=== PATIENT | female | born 1945 | race Caucasian/White ===

== ENCOUNTER 2022-04-21 14:12 | Inpatient (IN) | payer MEDICARE, SELFPAY ==
--- NOTE | ~2022-04-21 | XR_ITS ---
EXAMINATION: XR CHEST CLINICAL INFORMATION: Shortness of breath COMPARISON: Chest radiograph 09/05/2018, CT abdomen 09/05/2018 TECHNIQUE: 2 views of the chest were obtained. FINDINGS: The lungs are clear and there is no airspace consolidation, vascular congestion, or effusion. The costophrenic sulci are well-defined. The heart is normal in size. There is tapering at the bilateral cardiophrenic angles consistent with areolar tissue on CT. The hilar and mediastinal contours are stable. There is tortuous descending thoracic aorta are again seen. Multilevel degenerative changes involve the thoracic spine. XR/XR chest 2V IMPRESSION: -No acute intrathoracic disease.
--- NOTE | ~2022-04-21 | CT_ITS ---
EXAMINATION: CT ABDOMEN AND PELVIS WITHOUT CONTRAST CLINICAL INFORMATION: Left lower quadrant pain. COMPARISON: None TECHNIQUE: Multidetector volumetric imaging was performed from the superior aspect of the liver through the pubic symphysis. Sagittal and coronal reformatted images were obtained on the technologist's workstation. This CT examination was performed using dose optimization techniques as appropriate, variously including the following: *Automated exposure control *Adjustment of mA and/or kV according to patient size (this includes techniques or standardized protocols for targeted exams where dose is matched to indication/reason for exam; i.e. extremities or head) *Use of iterative reconstruction technique DLP: 531 mGy-cm FINDINGS: LUNG BASES: The visualized lung bases are unremarkable. LIVER, GALLBLADDER, AND BILIARY TREE: The liver is normal in size, shape, and diffuse hypo-attenuation. No focal hepatic lesion or biliary ductal dilatation is present. The gallbladder has been surgically removed. There is a punctate gas seen in the left hepatic duct. PANCREAS: Unremarkable. SPLEEN: Unremarkable. ADRENAL GLANDS: Unremarkable. KIDNEYS AND URETERS: The kidneys are normal in size, shape, and attenuation. No hydronephrosis, hydroureter, or calculi seen. No perinephric stranding. BLADDER: Unremarkable. GASTROINTESTINAL TRACT: There is diffuse mural thickening involving the entire descending and left transverse colon with scattered sigmoid diverticulosis. There is no pericolic fat stranding. Moderate stool is seen in the ascending colon. The small bowel loops are normal caliber. The appendix is normal caliber. There is no free air or free fluid seen. ABDOMINAL WALL: No significant hernia is appreciated. LYMPH NODES: Normal. VASCULAR: Unremarkable. PELVIC VISCERA: There is mild mural thickening involving the rectum as well. Mild fat stranding seen in the perirectal fascia OSSEOUS STRUCTURES: Degenerative disc changes with loss of disc height L2-L3, L3-L4 and L4-L5 disc levels CT/CT abdomen pelvis wo con IMPRESSION: Diffuse mural thickening involving the descending, sigmoid and the rectum suggestive of colitis. There are only few scattered diverticuli in the sigmoid colon but no diverticulitis is suspected. Normal appendix. Moderate stool in the right colon. Fleischner guidelines were followed.
[2022-04-21 14:17] VITALS: BP 137/74; PULSE 113; RESP 18; TEMP 37.2; O2SAT 98; BMI 28.3
--- NOTE | 2022-04-21 14:23 | ECG_ITS ---
Test Reason : SOB Blood Pressure : / mmHG Vent. Rate : 113 BPM Atrial Rate : 113 BPM P-R Int : 132 ms QRS Dur : 084 ms QT Int : 322 ms P-R-T Axes : 045 -35 093 degrees QTc Int : 441 ms Sinus tachycardia Left axis deviation Septal infarct , age undetermined Possible Lateral infarct , age undetermined Abnormal ECG When compared with ECG of 05-SEP-2018 00:37, Septal infarct is now Present Borderline criteria for Lateral infarct are now Present Referred By: Generic ED Physician Electronically Signed By:Azam Cartagena
[2022-04-21 14:47] LABS: Hematocrit 30.7 % (37.0-47.0); Hemoglobin 9.5 g/dl (12.0-16.0); Mean Corpuscular HGB Conc 30.9 g/dl (31.0-35.0); Mean Corpuscular Hemoglobin 22.2 pg (27.0-33.0); Mean Corpuscular Volume 71.7 fL (80.0-98.0); Platelet Count 234 X10*3/uL (160-400); Red Blood Count 4.28 X10*6/uL (4.20-5.50); Red Cell Distribution Width 21.5 % (11.0-16.0); White Blood Count 17.5 X10*3/uL (4.8-10.8)
[2022-04-21 15:02] LABS: Lactic Acid 1.5 mmol/L (0.5-2.0)
[2022-04-21 15:03] LABS: COVID-19 Test Negative (Negative); IDNOW Serial# 9DD0AD1C
[2022-04-21 15:04] LABS: IDNOW Serial# 16C4AD1C; Influenza A Negative (Negative); Influenza B2 Negative (Negative)
[2022-04-21 15:08] LABS: Alanine Aminotransferase 17 U/L (0-31); Albumin Level 2.4 g/dL (3.5-5.0); Alkaline Phosphatase 91 U/L (39-117); Anion Gap 13 (12-20); Aspartate Amino Transferase 19 U/L (5-31); Bilirubin Total 0.9 mg/dL (0.0-1.0); Blood Urea Nitrogen 26 mg/dL (9-16); Calcium 7.8 mg/dL (8.4-10.2); Carbon Dioxide 23 mmol/L (22-29); Chloride 98 mmol/L (96-108); Creatinine Clr Calc Pharmacy 54.2; Estimated Glomerular Filt Rate > 60; Glucose Random 116 mg/dL (60-115); Lipase 9 U/L (8-78); Potassium 3.1 mmol/L (3.3-5.1); Sodium 131 mmol/L (135-145); Total Protein 5.9 g/dL (6.5-8.0)
[2022-04-21 15:15] LABS: Band Neutrophils Percent 38 % (3-5); Lymphocytes Absolute Manual 1.2 X10*3/uL (1.2-4.9); Lymphocytes Percent Manual 7 % (20-40); Monocytes Absolute Manual 1.4 X10*3/uL (0.1-1.2); Monocytes Percent Manual 8 % (2-11); Neutrophils Absolute Manual 14.9 X10*3/uL (2.0-8.3); Neutrophils Percent Manual 47 % (45-73)
[2022-04-21 15:17] LABS: Dohle Bodies PRESENT; Hypochromasia 1+ (5-14) /OIF; Polychromasia 1+ (0-2) /OIF; RBC Morphology NOTED; Toxic Vacuolation PRESENT
[2022-04-21 15:19] LABS: Platelet Estimate NORMAL (NORMAL); Platelet Morphology Comment NORMAL
--- NOTE | 2022-04-21 20:49 | ED.GENADULT ---
HPI - General Adult General Chief complaint: General Medical Stated complaint: Abnormal labs sent by PCP Time Seen by Provider: 04/21/22 20:49 Source: patient and family Mode of arrival: ambulatory Limitations: no limitations History of Present Illness HPI narrative: Patient is 76 years old with history of hypertension been having diffuse abdominal pain few weeks , got worse in last few days,pain started in the left lower abdomen and now is in diffuse abdomen very poor appetite had some loose stools mixed with blood blood pressure was low afew days ago so patient stop taking her blood pressure medication, seen the PCP today and blood pressure was 82/50 patient feel weak nauseated does not feel hungry pain gets worse on ambulation no fever no or shortness of breath patient does have history of constipation taking stool laxative followed by diarrhea mixed with blood denies any antibiotic use in last few months Related Data Home Medications Medication Instructions Recorded Confirmed amlodipine 5 mg tablet 1 tab PO DAILY 04/21/22 04/21/22 clindamycin phosphate 1 % topical 1 appl TOPICAL BID 04/21/22 04/21/22 solution dicyclomine 10 mg capsule 1 cap PO TID 04/21/22 04/21/22 lorazepam 1 mg tablet 1 tab PO BID PRN 04/21/22 04/21/22 losartan 50 mg tablet 1 tab PO DAILY 04/21/22 04/21/22 nystatin 100,000 unit/mL oral 5 ml PO 5XD 04/21/22 04/21/22 suspension ondansetron 4 mg disintegrating 1 tab PO BID PRN 04/21/22 04/21/22 tablet Allergies Allergy/AdvReac Type Severity Reaction Status Date / Time Fish Containing Products Allergy Unknown HIVES TO Verified 04/21/22 14:16 COD Penicillins [PENICILLINS] Allergy Unknown UNKNOWN Verified 04/21/22 14:16 Sulfa (Sulfonamide Allergy Unknown HIVES Verified 04/21/22 14:16 Antibiotics) [SULFA (SULFONAMIDE ANTIBIOTICS)] sulfamethoxazole Allergy Unknown HIVES Verified 04/21/22 14:16 [From BACTRIM] trimethoprim [From BACTRIM] Allergy Unknown HIVES Verified 04/21/22 14:16 Review of Systems Review of Systems: Yes all other systems are reviewed and are negative PMFSH Social History Social History Advance Directives: No Advance Directives Information Provided: No Physical Exam ED Vital Signs: Vital Signs - 24 hr 04/21/22 14:17 04/21/22 20:56 04/21/22 22:57 Temperature 99.0 F Pulse Rate 113 H 111 H 83 Respiratory Rate 18 20 22 H Blood Pressure 137/74 94/60 114/54 L Pulse Oximetry 98 99 97 BMI result Body Mass Index 28.3 Appearance: Alert. Oriented X3. No acute distress. Eyes: No pallor ENT: Pharynx normal. Oral Mucosa dry Neck: Normal inspection. Neck supple. CVS: Normal heart rate and rhythm. Pulses normal. Respiratory: No respiratory distress. Equal air entry bilateral, no wheezing/rales/rhonchi Abdomen: Soft diffuse abdominal tenderness with guarding specially the left lower quadrant area Bowel sounds are sluggish, no mass palpable, no CVA tenderness Skin: Skin warm and dry. Normal skin color. Normal skin turgor. Extremities: No lower extremity edema. No calf tenderness Neuro: Oriented X 3. No motor deficit. Medical Decision Making [facility] Narrative Medical decision making narrative: 23:00 Patient with leukocytosis hypokalemia with bandemia of 38% with hypertension responded to IV fluids patient's lactic acid level was 1.5 ,CT scan of the abdomen showed colitis start patient on Rocephin and Flagyl unable to get the stool sample at this time will admit for IV hydration and antibiotics patient's blood pressure improved after IV fluids Lab Data Lab results reviewed: Yes I reviewed the patient's lab results. Result diagrams: 04/21/22 14:38 04/21/22 14:38 Labs: Lab Results 04/21/22 04/21/22 04/21/22 Range/Units 14:38 14:38 14:38 WBC 17.5 H (4.8-10.8) X10*3/uL RBC 4.28 (4.20-5.50) X10*6/uL Hgb 9.5 L (12.0-16.0) g/dl Hct 30.7 L (37.0-47.0) % MCV 71.7 L (80.0-98.0) fL MCH 22.2 L (27.0-33.0) pg MCHC 30.9 L (31.0-35.0) g/dl RDW 21.5 H (11.0-16.0) % Plt Count 234 (160-400) X10*3/uL MPV 9.0 L (9.4-12.3) fL Immature Gran % (Auto) Cancelled Neut % (Auto) Cancelled Lymph % (Auto) Cancelled Laurens % (Auto) Cancelled Eos % (Auto) Cancelled Baso % (Auto) Cancelled Lymph # (Auto) Cancelled [place] # (Auto) Cancelled Eos # (Auto) Cancelled Baso # (Auto) Cancelled Abs Immat Gran (auto) Cancelled Absolute Neuts (auto) Cancelled Absolute Nucleated RBC 0.000 (0.0-0.012) X10*3/uL Nucleated RBC % (auto) 0.0 (0.0-0.2) /100WBC Neutrophils % (Manual) 47 (45-73) % Band Neutrophils % 38 H (3-5) % Lymphocytes % (Manual) 7 L (20-40) % Monocytes % (Manual) 8 (2-11) % Abs Neuts (Manual) 14.9 H (2.0-8.3) X10*3/uL Lymphocytes # (Manual) 1.2 (1.2-4.9) X10*3/uL Monocytes # (Manual) 1.4 H (0.1-1.2) X10*3/uL Toxic Vacuolation PRESENT Dohle Bodies PRESENT Platelet Estimate NORMAL (NORMAL) Plt Morphology Comment NORMAL RBC Morphology NOTED Polychromasia 1+ (0-2) /OIF Hypochromasia 1+ (5-14) /OIF Sodium 131 L (135-145) mmol/L Potassium 3.1 L (3.3-5.1) mmol/L Chloride 98 (96-108) mmol/L Carbon Dioxide 23 (22-29) mmol/L Anion Gap 13 (12-20) BUN 26 H (9-16) mg/dL Creatinine 0.81 (0.5-1.4) mg/dL Estim Creat Clear Calc 54.2 Estimated GFR > 60 Random Glucose 116 H (60-115) mg/dL Lactic Acid 1.5 (0.5-2.0) mmol/L Calcium 7.8 L (8.4-10.2) mg/dL Total Bilirubin 0.9 (0.0-1.0) mg/dL AST 19 (5-31) U/L ALT 17 (0-31) U/L Alkaline Phosphatase 91 (39-117) U/L Total Protein 5.9 L (6.5-8.0) g/dL Albumin 2.4 L (3.5-5.0) g/dL Lipase 9 (8-78) U/L COVID-19 (RAMY) (Negative) COVID-19 Clin Com Influenza Type A (JENNIFER) (Negative) Influenza Type B (JENNIFER) (Negative) Influenza A & B Note 04/21/22 04/21/22 Range/Units 14:38 14:38 WBC (4.8-10.8) X10*3/uL RBC (4.20-5.50) X10*6/uL Hgb (12.0-16.0) g/dl Hct (37.0-47.0) % MCV (80.0-98.0) fL MCH (27.0-33.0) pg MCHC (31.0-35.0) g/dl RDW (11.0-16.0) % Plt Count (160-400) X10*3/uL MPV (9.4-12.3) fL Immature Gran % (Auto) Neut % (Auto) Lymph % (Auto) Laurens % (Auto) Eos % (Auto) Baso % (Auto) Lymph # (Auto) Laurens # (Auto) Eos # (Auto) Baso # (Auto) Abs Immat Gran (auto) Absolute Neuts (auto) Absolute Nucleated RBC (0.0-0.012) X10*3/uL Nucleated RBC % (auto) (0.0-0.2) /100WBC Neutrophils % (Manual) (45-73) % Band Neutrophils % (3-5) % Lymphocytes % (Manual) (20-40) % Monocytes % (Manual) (2-11) % Abs Neuts (Manual) (2.0-8.3) X10*3/uL Lymphocytes # (Manual) (1.2-4.9) X10*3/uL Monocytes # (Manual) (0.1-1.2) X10*3/uL Toxic Vacuolation Dohle Bodies Platelet Estimate (NORMAL) Plt Morphology Comment RBC Morphology Polychromasia /OIF Hypochromasia /OIF Sodium (135-145) mmol/L Potassium (3.3-5.1) mmol/L Chloride (96-108) mmol/L Carbon Dioxide (22-29) mmol/L Anion Gap (12-20) BUN (9-16) mg/dL Creatinine (0.5-1.4) mg/dL Estim Creat Clear Calc Estimated GFR Random Glucose (60-115) mg/dL Lactic Acid (0.5-2.0) mmol/L Calcium (8.4-10.2) mg/dL Total Bilirubin (0.0-1.0) mg/dL AST (5-31) U/L ALT (0-31) U/L Alkaline Phosphatase (39-117) U/L Total Protein (6.5-8.0) g/dL Albumin (3.5-5.0) g/dL Lipase (8-78) U/L COVID-19 (RAMY) Negative (Negative) COVID-19 Clin Com See Note Influenza Type A (JENNIFER) Negative (Negative) Influenza Type B (JENNIFER) Negative (Negative) Influenza A & B Note See Note Imaging Data CT scan - abdomen: Radiologist's impression: Diffuse mural thickening involving the descending, sigmoid and the rectum suggestive of colitis. There are only few scattered diverticuli in the sigmoid colon but no diverticulitis is suspected. ? Normal appendix. Moderate stool in the right colon.? ECG Data Attestation: I personally reviewed and interpreted this ECG as follows: Interpretation: Sinus tachycardia with heart rate 113 beats per minute left axis deviation no acute ST T wave changes no acute ischemia Discharge Plan Discharge Clinical Impression: Colitis Patient Disposition: Admitted As Inpatient
[2022-04-21 20:56] VITALS: BP 94/60; PULSE 111; RESP 20; O2SAT 99
[2022-04-21] MEDS: 0.9 % Sodium Chloride 1,000 ML 999 ML IV (21:31)
--- NOTE | 2022-04-21 21:42 | PHA.MEDREC ---
Pharmacy Consult ? Medication Reconciliation Pharmacy has completed the medication reconciliation.
[2022-04-21] MEDS: Potassium Chloride/H20 10 MEQ/100 ML PIGGYBACK 100 MEQ IV (21:49)
[2022-04-21 22:57] VITALS: BP 114/54; PULSE 83; RESP 22; O2SAT 97
[2022-04-21] MEDS: ondansetron HCL 4 MG/2 ML VIAL IVPUSH (22:59)
[2022-04-21] MEDS: Morphine Sulfate 2 MG/ML CARTRIDGE IVPUSH (22:59)
--- NOTE | 2022-04-21 23:30 | P.HPHOSP_ITS ---
History of Present Illness Date of Service: 04/21/22 Chief Complaint: abdominal pain 76-year-old female with a past medical history of hypertension, anxiety presented to the hospital with a chief complaint of abdominal pain. Patient reports that over the past 2 months she has been having abdominal pain which has been worsening over the past 2-3 days; abdominal pain is diffuse; reports she has episodes of nausea and diarrhea; loose watery stool; foul- smelling; denies being on antibiotics recently; patient also reports he has intermittent episodes of bright red blood per rectum but attributes to her hemor rhoids; Denies any fever chills cough or sputum production. Denies any urinary symptoms. Denies any chest pain or palpitations. Review of all other systems is negative except mentioned above Patient reported that she went to her PCP or office today and noted to have low blood pressure and subsequently came to the ER for further evaluation. ER course: Per ER team patient blood pressure on presentation noted to be 114/54; given IV fluids; on labs noted to have drop in hemoglobin; CT abdomen showed findings consistent with colitis; given antibiotics. Admitted for further management. [facility] Social History Advance Directives: No Advance Directives Information Provided: No Meds Allergies Allergy/AdvReac Type Severity Reaction Status Date / Time Fish Containing Products Allergy Unknown HIVES TO Verified 04/21/22 14:16 COD Penicillins [PENICILLINS] Allergy Unknown UNKNOWN Verified 04/21/22 14:16 Sulfa (Sulfonamide Allergy Unknown HIVES Verified 04/21/22 14:16 Antibiotics) [SULFA (SULFONAMIDE ANTIBIOTICS)] sulfamethoxazole Allergy Unknown HIVES Verified 04/21/22 14:16 [From BACTRIM] trimethoprim [From BACTRIM] Allergy Unknown HIVES Verified 04/21/22 14:16 Active Medications: Current Medications Acetaminophen (Acetaminophen 325 Mg Tablet) 650 mg PO Q6H PRN PRN Reason: Pain, Mild (Pain Scale 1-3) Hydromorphone HCl (Hydromorphone Hcl 1 Mg/Ml Syringe) 0.5 mg IVPUSH Q4H PRN; Protocol PRN Reason: Pain, Severe (Pain Scale 7-10) Ceftriaxone Sodium 1 gm/ (Sodium Chloride) 50 mls @ 100 mls/hr IV ONCE ONE Stop: 04/21/22 23:57 Metronidazole (Flagyl) 500 mg in 100 mls @ 100 mls/hr IV ONCE ONE Stop: 04/22/22 00:27 Dextrose/Sodium Chloride (D5ns) 1,000 mls @ 100 mls/hr IVCONT .Q10H [facility] Melatonin (Melatonin 3 Mg Tablet) 6 mg PO BEDTIME PRN PRN Reason: Insomnia Sodium Chloride (0.9 % Sodium Chloride Flush 3 Ml Syringe) 3 ml IVFLUSH QSHIFT [facility] Home Medications Medication Instructions Recorded Confirmed Last Taken Type amlodipine 5 mg tablet 1 tab PO DAILY 04/21/22 04/21/22 Unknown History clindamycin phosphate 1 % topical 1 appl TOPICAL BID 04/21/22 04/21/22 Unknown History solution dicyclomine 10 mg capsule 1 cap PO TID 04/21/22 04/21/22 Unknown History lorazepam 1 mg tablet 1 tab PO BID PRN 04/21/22 04/21/22 Unknown History losartan 50 mg tablet 1 tab PO DAILY 04/21/22 04/21/22 Unknown History nystatin 100,000 unit/mL oral 5 ml PO 5XD 04/21/22 04/21/22 Unknown History suspension ondansetron 4 mg disintegrating 1 tab PO BID PRN 04/21/22 04/21/22 Unknown History tablet Physical Exam Vital Signs and Narrative: Vital Signs: Last Vital Signs Temp 99.0 F 04/21/22 14:17 Pulse 83 04/21/22 22:57 Resp 22 H 04/21/22 22:57 BP 114/54 L 04/21/22 22:57 Pulse Ox 97 04/21/22 22:57 BMI result Body Mass Index 28.3 Gen: Appears be in no acute distress HEENT: NCAT, dry mucosa. Pulmonary: Vesicular breath sounds, fair air entry CVS: Normal S1-S2 Abdomen: BS+, Soft, Mildly tender diffusely; no guarding no rigidity Extremities: Warm well perfused Neuro: Alert and awake. Results Labs CBC and Chem 7: 04/22/22 04:25 04/22/22 04:25 Labs: Laboratory Results - last 24 hr 04/21/22 04/21/22 04/21/22 14:38 14:38 14:38 MCV 71.7 L MCH 22.2 L MCHC 30.9 L RDW 21.5 H Plt Count 234 MPV 9.0 L Immature Gran % (Auto) Cancelled Neut % (Auto) Cancelled Lymph % (Auto) Cancelled Real % (Auto) Cancelled Eos % (Auto) Cancelled Baso % (Auto) Cancelled Lymph # (Auto) Cancelled Real # (Auto) Cancelled Eos # (Auto) Cancelled Baso # (Auto) Cancelled Abs Immat Gran (auto) Cancelled Absolute Neuts (auto) Cancelled Absolute Nucleated RBC 0.000 Nucleated RBC % (auto) 0.0 Neutrophils % (Manual) 47 Band Neutrophils % 38 H Lymphocytes % (Manual) 7 L Monocytes % (Manual) 8 Abs Neuts (Manual) 14.9 H Lymphocytes # (Manual) 1.2 Monocytes # (Manual) 1.4 H Toxic Vacuolation PRESENT Dohle Bodies PRESENT Platelet Estimate NORMAL Plt Morphology Comment NORMAL RBC Morphology NOTED Polychromasia 1+ (0-2) Hypochromasia 1+ (5-14) Anion Gap 13 Estim Creat Clear Calc 54.2 Estimated GFR > 60 Random Glucose 116 H Lactic Acid 1.5 Calcium 7.8 L Total Bilirubin 0.9 AST 19 ALT 17 Alkaline Phosphatase 91 Total Protein 5.9 L Albumin 2.4 L Lipase 9 COVID-19 (RAMY) COVID-19 Clin Com Influenza Type A (JENNIFER) Influenza Type B (JENNIFER) Influenza A & B Note 04/21/22 04/21/22 14:38 14:38 MCV MCH MCHC RDW Plt Count MPV Immature Gran % (Auto) Neut % (Auto) Lymph % (Auto) Real % (Auto) Eos % (Auto) Baso % (Auto) Lymph # (Auto) Real # (Auto) Eos # (Auto) Baso # (Auto) Abs Immat Gran (auto) Absolute Neuts (auto) Absolute Nucleated RBC Nucleated RBC % (auto) Neutrophils % (Manual) Band Neutrophils % Lymphocytes % (Manual) Monocytes % (Manual) Abs Neuts (Manual) Lymphocytes # (Manual) Monocytes # (Manual) Toxic Vacuolation Dohle Bodies Platelet Estimate Plt Morphology Comment RBC Morphology Polychromasia Hypochromasia Anion Gap Estim Creat Clear Calc Estimated GFR Random Glucose Lactic Acid Calcium Total Bilirubin AST ALT Alkaline Phosphatase Total Protein Albumin Lipase COVID-19 (RAMY) Negative COVID-19 Clin Com See Note Influenza Type A (JENNIFER) Negative Influenza Type B (JENNIFER) Negative Influenza A & B Note See Note Imaging Radiologist's Impressions: Impressions Chest X-Ray 04/21/22 14:53 IMPRESSION: -No acute intrathoracic disease. Abdomen/Pelvis CT 04/21/22 21:41 IMPRESSION: Diffuse mural thickening involving the descending, sigmoid and the rectum suggestive of colitis. There are only few scattered diverticuli in the sigmoid colon but no diverticulitis is suspected. Normal appendix. Moderate stool in the right colon. Fleischner guidelines were followed. Assessment and Plan (1) Colitis: Status: Acute (2) BRBPR (bright red blood per rectum): Status: Acute (3) Anemia: Status: Acute (4) Sepsis: Status: Acute Plan 76Y F with a past medical history of hypertension, anxiety, question IBS, chronic constipation presented to the hospital with a chief complaint of abdominal pain for 2 months worsening over past 2-3 days associated with diar leatha and blood in the stool. Admitted for following Sepsis: In the setting of colitis. Patient blood pressure at the PCP office was 82/50. Currently 140/54. Continue maintenance IV fluids. will hold home antihypertensives for now. Monitor on telemetry UA pending; CXR negative. Colitis: Will keep the patient on IV Zosyn. Will obtain stool studies including C diff. Mild hypokalemia: Repleted Bright red blood per rectum: Patient hemoglobin dropped from 14.7 to 9.5. Patient exhibits to hemorrhoids. Stool occult blood test GI consult DVT prophylaxis: SCD boots Code status: Full code Quality Stroke Does the patient have a stroke diagnosis?: No VTE Prior VTE?: No VTE Risk Level:: Medical - moderate - high VTE Device Contraindication: N/A - Device Ordered VTE Drug Contraindication: Treatment Not Indicated
[2022-04-21] MEDS: cefTRIAXone sodium 1 GM in 0.9 % Sodium Chloride 50 ML IV (23:41)
[2022-04-22] VITALS (8 sets, daily range): BP systolic 100–134; BP diastolic 50–68; PULSE 78–94; RESP 14–21; TEMP 36.6–37.3; O2SAT 95–98
[2022-04-22] MEDS: 0.9 % Sodium Chloride Flush 3 ML SYRINGE IVFLUSH ×2 (00:01→08:02)
[2022-04-22] MEDS: Dextrose 5 % and 0.9 % NaCl 1,000 ML 100 ML IVCONT ×3 (00:11→20:12)
[2022-04-22] MEDS: Potassium Chloride Packet 20 MEQ PACKET 40 MEQ PO (00:19)
[2022-04-22 04:56] LABS: Hematocrit 25.3 % (37.0-47.0); Hemoglobin 7.8 g/dl (12.0-16.0); Mean Corpuscular HGB Conc 30.8 g/dl (31.0-35.0); Mean Corpuscular Hemoglobin 22.8 pg (27.0-33.0); Mean Platelet Volume 9.4 fL (9.4-12.3); Platelet Count 179 X10*3/uL (160-400); Red Blood Count 3.42 X10*6/uL (4.20-5.50); Red Cell Distribution Width 21.5 % (11.0-16.0)
[2022-04-22 05:02] LABS: WBC ABN SCTR FOR CBC 1
[2022-04-22 05:21] LABS: Anion Gap 12 (12-20); Blood Urea Nitrogen 30 mg/dL (9-16); Calcium 7.6 mg/dL (8.4-10.2); Carbon Dioxide 26 mmol/L (22-29); Chloride 100 mmol/L (96-108); Creatinine Clr Calc Pharmacy 54.9; Estimated Glomerular Filt Rate > 60; Glucose Random 119 mg/dL (60-115); Potassium 4.1 mmol/L (3.3-5.1); Sodium 134 mmol/L (135-145)
[2022-04-22 05:31] LABS: Band Neutrophils Percent 47 % (3-5); Lymphocytes Percent Manual 8 % (20-40); Metamyelocytes Percent 2 %; Monocytes Percent Manual 3 % (2-11); Neutrophils Percent Manual 40 % (45-73)
[2022-04-22 05:33] LABS: Macrocytosis 1+ (5-14) /OIF; Platelet Estimate NORMAL (NORMAL); Platelet Morphology Comment NORMAL; RBC Morphology NOTED
[2022-04-22 05:34] LABS: Dohle Bodies PRESENT; Hypochromasia 1+ (5-14) /OIF; Lymphocytes Absolute Manual 1.1 X10*3/uL (1.2-4.9); Metamyelocytes Absolute 0.3 X10*3/uL; Monocytes Absolute Manual 0.4 X10*3/uL (0.1-1.2); Neutrophils Absolute Manual 11.5 X10*3/uL (2.0-8.3); Polychromasia 1+ (0-2) /OIF; Toxic Granulation PRESENT; White Blood Count 13.2 X10*3/uL (4.8-10.8)
[2022-04-22] MEDS: Pantoprazole Sodium 40 MG/10 ML VIAL IVPUSH (06:18)
[2022-04-22] MEDS: metroNIDAZOLE/NS 500 MG/100 ML PIGGYBACK 100 MG IV ×3 (08:01→15:43)
[2022-04-22 09:05] LABS: OBS Int Ctl Valid YES; OBS1 POSITIVE (NEGATIVE)
[2022-04-22 09:08] LABS: Appearance Urine HAZY; Color Urine YELLOW; Glucose Urine UA NEG (NEG); Leukocyte Esterase Urine NEG (NEG); Nitrite Urine NEG (NEG); Specific Gravity - Urine 1.025 (1.005-1.025); UACC Culture Trigger NO; Urine Blood 1+ (NEG); Urine Ketones 15 MG/DL (NEG); Urine Protein 1+ MG/DL (NEG-TRACE)
[2022-04-22 09:21] LABS: Squamous Epithelial Cell Urine 3+ /LPF
[2022-04-22 09:22] LABS: Renal Epithelial Cells Urine TRACE /LPF; WBC Urine 0-2 /HPF (0-4)
[2022-04-22 09:24] LABS: Bacteria Urine TRACE /LPF; Hyaline Casts Urine 0-2 /LPF
--- NOTE | 2022-04-22 09:49 | PC.NURSE ---
Seen by GI Stool and urine specimen sent. Pt had two episodes of diarrhea, some kayla blood noted in toilet. Pt denies dizziness or SOB
[2022-04-22 09:51] LABS: Leukocytes Stool Qualitative MANY: >10/OIF (NEGATIVE)
--- NOTE | 2022-04-22 10:15 | MHC.CM.PN ---
Attempted to meet with patient in regards to discharge planning. Patient currently sleeping. Spoke with patient's , Candido via telephone at [phone]. Patient lives with Candido, occasionally ambulates with a cane, and had no services prior to coming to the hospital. PCP verified. Patient received 4 Moderna vaccines. HCP verified to be on file. IMM explained and left at bedside. Candido will transport patient home when medically stable. Continue to monitor for d/c needs.
[2022-04-22 10:45] LABS: CDiff Gene PCR NEGATIVE (Negative)
--- NOTE | 2022-04-22 11:03 | PC.NURSE ---
patient easy to arouse, oriented on waking. patient updated on plan of care, patient denies any needs. reports being tried at this time, but no other complaints
--- NOTE | 2022-04-22 11:38 | PM.GICN ---
History of Present Illness Data of Consult Service Date: 04/22/22 Requesting physician: Juan Egan Primary Care Provider: Jesse Sommer MD HPI Reason for consult: colitis 76-year-old female with a past medical history of hypertension, anxiety who I am seeing for assessment for anemia and colitis She has had 2 weeks of loose stools with fresh blood noted. Prior to this she had been constipated pretty bad and took laxatives which helped. she then developed severe lower crampy abdominal pain without radiation persistent for last 2 weeks along with the diarrhea and rectal bleeding. pain is 10/10 and relieved by ice packs, no worsenig factors. she aslo noted nausea, with dry heaves but no emesis, no melena, no weight loss. Appetite has been good. No fevers or chills. Denies eating anything poorly cooked, lives with who is fine, no sx. no hx of c diff or recent ABX. LABS anemia, with HGB 9.5 g/dl and 7.8 g/dl on repeat, MCV low Ct imaging with left sided colitis to the rectum wth stranding. Atherosclerosis. Review of Systems Review of Systems: Constitutional : No Weight loss, No Fever, No Chills ENT/Mouth : No sore throat, No Rhinorrhea Eyes: No Swelling, No Redness Cardiovascular : No Chest Pain, No SOB, No Edema Respiratory : No Cough, No Sputum, No Wheezing Gastrointestinal : see HPI Genitourinary : NO Dysuria, No Urinary Frequency, No Hematuria, No Urgency Musculoskeletal : No joint pain, No Myalgias, No Joint Swelling Skin : No Skin Lesions, No rash Neuro : + Weakness, No Numbness, No Dizziness, No Headache Psych : No Anxiety/Panic, No Depression Heme/Lymph: No Bruising, No Lymphadenopathy Endocrine : No Polyuria, No Polydipsia All other systems reviewed and are negative. [facility] Past Medical History Functional capacity: independent ambulation Family History Pertinent family history: no Fh of IBD, colon cancer Social History Social History Advance Directives: No Advance Directives Information Provided: No service: No Current occupational status: retired Meds Allergies Allergy/AdvReac Type Severity Reaction Status Date / Time Fish Containing Products Allergy Unknown HIVES TO Verified 04/21/22 14:16 COD Penicillins [PENICILLINS] Allergy Unknown UNKNOWN Verified 04/21/22 14:16 Sulfa (Sulfonamide Allergy Unknown HIVES Verified 04/21/22 14:16 Antibiotics) [SULFA (SULFONAMIDE ANTIBIOTICS)] sulfamethoxazole Allergy Unknown HIVES Verified 04/21/22 14:16 [From BACTRIM] trimethoprim [From BACTRIM] Allergy Unknown HIVES Verified 04/21/22 14:16 Active Medications: Current Medications Acetaminophen (Acetaminophen 325 Mg Tablet) 650 mg PO Q6H PRN PRN Reason: Pain, Mild (Pain Scale 1-3) Hydromorphone HCl (Hydromorphone Hcl 1 Mg/Ml Syringe) 0.5 mg IVPUSH Q4H PRN; Protocol PRN Reason: Pain, Severe (Pain Scale 7-10) Dextrose/Sodium Chloride (D5ns) 1,000 mls @ 100 mls/hr IVCONT .Q10H [facility] Last Admin: 04/22/22 08:48 Dose: 100 mls/hr Documented by: Ceftriaxone Sodium 1 gm/ (Sodium Chloride) 50 mls @ 100 mls/hr IV Q24H [facility] Metronidazole (Flagyl) 500 mg in 100 mls @ 100 mls/hr IV Q8H [facility] Last Infusion: 04/22/22 09:49 Dose: Infused Documented by: Lorazepam (Lorazepam 1 Mg Tablet) 1 mg PO BID PRN PRN Reason: Anxiety Melatonin (Melatonin 3 Mg Tablet) 6 mg PO BEDTIME PRN PRN Reason: Insomnia Pantoprazole Sodium (Pantoprazole Sodium 40 Mg/10 Ml Vial) 40 mg IVPUSH DAILY@0630 [facility] Last Admin: 04/22/22 06:18 Dose: 40 mg Documented by: Sodium Chloride (0.9 % Sodium Chloride Flush 3 Ml Syringe) 3 ml IVFLUSH QSHIFT [facility] Last Admin: 04/22/22 08:02 Dose: 3 ml Documented by: Home Medications Medication Instructions Recorded Confirmed Last Taken Type amlodipine 5 mg tablet 1 tab PO DAILY 04/21/22 04/21/22 Unknown History clindamycin phosphate 1 % topical 1 appl TOPICAL BID 04/21/22 04/21/22 Unknown History solution dicyclomine 10 mg capsule 1 cap PO TID 04/21/22 04/21/22 Unknown History lorazepam 1 mg tablet 1 tab PO BID PRN 04/21/22 04/21/22 Unknown History losartan 50 mg tablet 1 tab PO DAILY 04/21/22 04/21/22 Unknown History nystatin 100,000 unit/mL oral 5 ml PO 5XD 04/21/22 04/21/22 Unknown History suspension ondansetron 4 mg disintegrating 1 tab PO BID PRN 04/21/22 04/21/22 Unknown History tablet Physical Exam Vital Signs: Vital Signs: Last Vital Signs Temp 97.8 F 04/22/22 04:34 Pulse 92 04/22/22 11:01 Resp 17 04/22/22 11:01 BP 104/52 L 04/22/22 11:01 Pulse Ox 96 04/22/22 11:01 BMI result Body Mass Index 28.3 EXAM: GENERAL: The patient is well developed and nontoxic. VITAL SIGNS:see workflow HEENT: Nonicteric sclerae, PERRLA, EOMI. Oropharynx clear. Moist mucous membranes. Conjunctivae appear well perfused. No thyroid mass. CHEST: Chest wall is nontender. HEART: Regular rate and rhythm without murmurs. LUNGS: Clear to auscultation bilaterally. ABDOMEN: Soft, positive bowel sounds, tender left side of abdomen and suprapubic area, no organomegaly.no flank tenderness SKIN: No rash, no excessive bruising, petechiae, or purpura. NEUROLOGIC: Cranial nerves II-XII intact without motor/sensory deficit. Psych- nml affect Extrem: General: Yes normal to inspection Results Labs CBC & Chem 7: 04/22/22 04:25 04/22/22 04:25 Labs: Short CBC 04/21/22 04/22/22 Range/Units 14:38 04:25 WBC 17.5 H 13.2 H (4.8-10.8) X10*3/uL Hgb 9.5 L 7.8 L (12.0-16.0) g/dl Hct 30.7 L 25.3 L (37.0-47.0) % Plt Count 234 179 (160-400) X10*3/uL BMP 04/21/22 04/22/22 14:38 04:25 Sodium 131 L 134 L Potassium 3.1 L 4.1 D Chloride 98 100 Carbon Dioxide 23 26 BUN 26 H 30 H Creatinine 0.81 0.80 Calcium 7.8 L 7.6 L Liver Function 04/21/22 Range/Units 14:38 Total Bilirubin 0.9 (0.0-1.0) mg/dL AST 19 (5-31) U/L ALT 17 (0-31) U/L Alkaline Phosphatase 91 (39-117) U/L Albumin 2.4 L (3.5-5.0) g/dL Urine 04/22/22 Range/Units 08:51 Urine Color YELLOW Urine Appearance HAZY Urine pH 6.0 (5.0-8.0) Ur Specific [place] 1.025 (1.005-1.025) Urine Protein 1+ H (NEG-TRACE) MG/DL Urine Glucose (UA) NEG (NEG) MG/DL Imaging CT scan - abdomen: Attestation: I personally reviewed and interpreted this imaging study as follows: (atherosclerosis, left sided colonic stranding and thickening, stool is proximal colon and dilation of bowel) Assessment and Plan (1) Colitis: Status: Acute (2) BRBPR (bright red blood per rectum): Status: Acute (3) Anemia: Status: Acute Plan 1/ History is most consistent with ischemic colitis, had been on anti hypertensives, was constipated and has atherosclerosis on imaging. DDX: infectious colitis, and UC 2/ anemia, related to 1/ above PLAN: 1/ Cont wt ABX as doing 2/ avoid constipation, daily laxatives with miralax, colace, 3/ if sx don't improve then limited unprepped colonoscopy with biopsies. 4/ check c diff for completeness, send stool c/s 5/ avoid nsaids 6/ check b12, folate, iron studies, replenish 7/ Will need colonoscopy in the near future as she never had one, would wait 4-6 weeks out Procedures Date of Service Date of Service: 04/22/22
[2022-04-22] MEDS: Nystatin Oral Susp 500,000 UNIT/5 ML ORAL.SUSP 500000 UNIT PO (15:46)
--- NOTE | 2022-04-22 16:10 | HO.PM.IMPN ---
Subjective Subjective Date of Service: 04/22/22 Interval History: cc: brbpr interval history: still had episodes this am Cardiovascular Cardiovascular: Reports no additional cardiovascular complaints Respiratory Respiratory: Reports no additional respiratory complaints Physical Exam Vital Signs: Vital Signs: Last Vital Signs Temp 98.3 F 04/22/22 14:24 Pulse 90 04/22/22 14:24 Resp 14 04/22/22 14:24 BP 134/68 04/22/22 14:24 Pulse Ox 95 04/22/22 14:24 BMI result Body Mass Index 28.3 General: AO X 3, no acute distress Resp: CTA bilateral, no accessory muscles used CVS: S1,S2,RRR GI: soft, tender, non distended Neuro: motor grossly intact, alert Psych: appropriate affect, appropriate insight Objective Data Active Medications Acetaminophen (Acetaminophen 325 Mg Tablet) 650 mg PO Q6H PRN PRN Reason: Pain, Mild (Pain Scale 1-3) Hydromorphone HCl (Hydromorphone Hcl 1 Mg/Ml Syringe) 0.5 mg IVPUSH Q4H PRN; Protocol PRN Reason: Pain, Severe (Pain Scale 7-10) Dextrose/Sodium Chloride (D5ns) 1,000 mls @ 100 mls/hr IVCONT .Q10H [facility] Last Admin: 04/22/22 08:48 Dose: 100 mls/hr Documented by: YUMIKO Ceftriaxone Sodium 1 gm/ (Sodium Chloride) 50 mls @ 100 mls/hr IV Q24H [facility] Metronidazole (Flagyl) 500 mg in 100 mls @ 100 mls/hr IV Q8H [facility] Last Admin: 04/22/22 15:43 Dose: 100 mls/hr Documented by: YUMIKO Lorazepam (Lorazepam 1 Mg Tablet) 1 mg PO BID PRN PRN Reason: Anxiety Melatonin (Melatonin 3 Mg Tablet) 6 mg PO BEDTIME PRN PRN Reason: Insomnia Nystatin (Nystatin Oral Susp 500,000 Unit/5 Ml Oral.Susp) 500,000 unit PO 5XD [facility]; Protocol Last Admin: 04/22/22 15:46 Dose: 500,000 unit Documented by: YUMIKO Pantoprazole Sodium (Pantoprazole Sodium 40 Mg/10 Ml Vial) 40 mg IVPUSH DAILY@0630 [facility] Last Admin: 04/22/22 06:18 Dose: 40 mg Documented by: EUFEMIA Sodium Chloride (0.9 % Sodium Chloride Flush 3 Ml Syringe) 3 ml IVFLUSH QSHIFT [facility] Last Admin: 04/22/22 15:50 Dose: Not Given Documented by: YUMIKO Non-Admin Reason: IV Running Labs CBC & Chem 7: 04/22/22 04:25 04/22/22 04:25 Labs: Laboratory Results - last 24 hr 04/21/22 04/22/22 04/22/22 14:38 04:25 04:25 MCV 71.7 L 74.0 L MCH 22.2 L 22.8 L MCHC 30.9 L 30.8 L RDW 21.5 H 21.5 H Plt Count 234 179 MPV 9.0 L 9.4 Immature Gran % (Auto) Cancelled Neut % (Auto) Cancelled Lymph % (Auto) Cancelled [place] % (Auto) Cancelled Eos % (Auto) Cancelled Baso % (Auto) Cancelled Lymph # (Auto) Cancelled [place] # (Auto) Cancelled Eos # (Auto) Cancelled Baso # (Auto) Cancelled Abs Immat Gran (auto) Cancelled Absolute Neuts (auto) Cancelled Absolute Nucleated RBC 0.000 0.000 Nucleated RBC % (auto) 0.0 0.0 Neutrophils % (Manual) 47 40 L Band Neutrophils % 38 H 47 H Lymphocytes % (Manual) 7 L 8 L Monocytes % (Manual) 8 3 Metamyelocytes % 2 Abs Neuts (Manual) 14.9 H 11.5 H Lymphocytes # (Manual) 1.2 1.1 L Monocytes # (Manual) 1.4 H 0.4 Metamyelocytes # 0.3 Toxic Granulation PRESENT Toxic Vacuolation PRESENT Dohle Bodies PRESENT PRESENT Platelet Estimate NORMAL NORMAL Plt Morphology Comment NORMAL NORMAL RBC Morphology NOTED NOTED Polychromasia 1+ (0-2) 1+ (0-2) Hypochromasia 1+ (5-14) 1+ (5-14) Macrocytosis 1+ (5-14) Anion Gap 12 Estim Creat Clear Calc 54.9 Estimated GFR > 60 Random Glucose 119 H Calcium 7.6 L Urine Color Urine Appearance Urine pH Ur Specific [place] Urine Protein Urine Glucose (UA) Urine Ketones Urine Blood Urine Nitrite Ur Leukocyte Esterase Urine RBC Urine WBC Ur Squamous Epith Cells Ur Renal Epithelial Cell Urine Bacteria Hyaline Casts Stool Occult Blood Stool Leukocytes, Qual C. difficile Tox B Gene Blood Type Antibody Screen Crossmatch 04/22/22 04/22/22 04/22/22 08:51 08:51 08:52 MCV MCH MCHC RDW Plt Count MPV Immature Gran % (Auto) Neut % (Auto) Lymph % (Auto) [place] % (Auto) Eos % (Auto) Baso % (Auto) Lymph # (Auto) [place] # (Auto) Eos # (Auto) Baso # (Auto) Abs Immat Gran (auto) Absolute Neuts (auto) Absolute Nucleated RBC Nucleated RBC % (auto) Neutrophils % (Manual) Band Neutrophils % Lymphocytes % (Manual) Monocytes % (Manual) Metamyelocytes % Abs Neuts (Manual) Lymphocytes # (Manual) Monocytes # (Manual) Metamyelocytes # Toxic Granulation Toxic Vacuolation Dohle Bodies Platelet Estimate Plt Morphology Comment RBC Morphology Polychromasia Hypochromasia Macrocytosis Anion Gap Estim Creat Clear Calc Estimated GFR Random Glucose Calcium Urine Color YELLOW Urine Appearance HAZY Urine pH 6.0 Ur Specific [place] 1.025 Urine Protein 1+ H Urine Glucose (UA) NEG Urine Ketones 15 Urine Blood 1+ H Urine Nitrite NEG Ur Leukocyte Esterase NEG Urine RBC 5-9 H Urine WBC 0-2 Ur Squamous Epith Cells 3+ Ur Renal Epithelial Cell TRACE Urine Bacteria TRACE Hyaline Casts 0-2 Stool Occult Blood POSITIVE Stool Leukocytes, Qual MANY: >10/OIF C. difficile Tox B Gene Blood Type Antibody Screen Crossmatch 04/22/22 04/22/22 08:52 11:17 MCV MCH MCHC RDW Plt Count MPV Immature Gran % (Auto) Neut % (Auto) Lymph % (Auto) [place] % (Auto) Eos % (Auto) Baso % (Auto) Lymph # (Auto) [place] # (Auto) Eos # (Auto) Baso # (Auto) Abs Immat Gran (auto) Absolute Neuts (auto) Absolute Nucleated RBC Nucleated RBC % (auto) Neutrophils % (Manual) Band Neutrophils % Lymphocytes % (Manual) Monocytes % (Manual) Metamyelocytes % Abs Neuts (Manual) Lymphocytes # (Manual) Monocytes # (Manual) Metamyelocytes # Toxic Granulation Toxic Vacuolation Dohle Bodies Platelet Estimate Plt Morphology Comment RBC Morphology Polychromasia Hypochromasia Macrocytosis Anion Gap Estim Creat Clear Calc Estimated GFR Random Glucose Calcium Urine Color Urine Appearance Urine pH Ur Specific [place] Urine Protein Urine Glucose (UA) Urine Ketones Urine Blood Urine Nitrite Ur Leukocyte Esterase Urine RBC Urine WBC Ur Squamous Epith Cells Ur Renal Epithelial Cell Urine Bacteria Hyaline Casts Stool Occult Blood Stool Leukocytes, Qual C. difficile Tox B Gene NEGATIVE Blood Type B Positive Antibody Screen NEGATIVE Crossmatch See Detail Assessment and Plan (1) BRBPR (bright red blood per rectum): Status: Acute Plan 76F presented with abd pain, brbpr acute ischemic colitis cdif negative continue abx to cover superimposed bactrial infection, no evidence of sepsis ivf avoid hypotension holding antihypertensives advanced to clears monitor electorylytes acute blood loss anemia due to above montiro h and h transfuse 1 unit prbc today dvt prophylaxis - mechanical due to gi bleed full code reason for continued hospitalization: requiring trnasfusion due to ongiong bleeding, needs continued close montioring, awaiting tolerance of po Quality Stroke Does the patient have a stroke diagnosis?: No VTE Prior VTE?: No VTE Risk Level:: Medical - moderate - high VTE Device Contraindication: N/A - Device Ordered VTE Drug Contraindication: Treatment Not Indicated
[2022-04-23 00:39] VITALS: BP 119/72; PULSE 99; RESP 22; TEMP 36.4; O2SAT 100
[2022-04-23] MEDS: cefTRIAXone sodium 1 GM in 0.9 % Sodium Chloride 50 ML IV (01:22)
[2022-04-23] MEDS: metroNIDAZOLE/NS 500 MG/100 ML PIGGYBACK 100 MG IV ×3 (01:23→16:03)
[2022-04-23] MEDS: LORazepam 1 MG TABLET PO ×2 (01:25→20:05)
[2022-04-23 06:10] VITALS: BP 137/80; PULSE 81; RESP 20; O2SAT 96
[2022-04-23] MEDS: Pantoprazole Sodium 40 MG/10 ML VIAL IVPUSH (06:11)
[2022-04-23] MEDS: Dextrose 5 % and 0.9 % NaCl 1,000 ML 100 ML IVCONT (06:11)
[2022-04-23 07:14] LABS: Hemoglobin 9.3 g/dl (12.0-16.0); Mean Corpuscular Hemoglobin 23.4 pg (27.0-33.0); Mean Corpuscular Volume 75.4 fL (80.0-98.0); Mean Platelet Volume 9.3 fL (9.4-12.3); Platelet Count 147 X10*3/uL (160-400); Red Blood Count 3.98 X10*6/uL (4.20-5.50); Red Cell Distribution Width 21.7 % (11.0-16.0); White Blood Count 10.8 X10*3/uL (4.8-10.8)
--- NOTE | 2022-04-23 07:15 | PC.NURSE ---
Pt had multiple episodes of small stool with kayla red blood AxO x 4, clear and complete sentences Will continue to monitor
[2022-04-23 07:48] LABS: Anion Gap 9 (12-20); Blood Urea Nitrogen 18 mg/dL (9-16); Calcium 7.4 mg/dL (8.4-10.2); Carbon Dioxide 24 mmol/L (22-29); Chloride 106 mmol/L (96-108); Creatinine Clr Calc Pharmacy 69.7; Estimated Glomerular Filt Rate > 60; Glucose Fasting 113 mg/dL (60-99); Potassium 3.3 mmol/L (3.3-5.1); Sodium 136 mmol/L (135-145)
[2022-04-23] MEDS: 0.9 % Sodium Chloride Flush 3 ML SYRINGE IVFLUSH ×2 (08:01→16:13)
[2022-04-23 08:07] VITALS: BP 113/66; PULSE 85; RESP 16; O2SAT 98
--- NOTE | 2022-04-23 08:08 | PC.NURSE ---
pt is currently asleep but easily arousable, respirations even and unlabored, slightly pale in color, pt denies pain at this time, ns on the monitor, vs stable
--- NOTE | 2022-04-23 10:10 | PC.NURSE ---
pt had a episode of diarrhea, some bright blood streaking noticed when assisted with wiping the pt, pt reports slight cramping in her abd
--- NOTE | 2022-04-23 10:57 | PC.NURSE ---
called the floor for report awaiting for a call back
[2022-04-23] MEDS: Nystatin Oral Susp 500,000 UNIT/5 ML ORAL.SUSP 500000 UNIT PO ×4 (11:12→20:05)
--- NOTE | 2022-04-23 12:25 | P.PNIM_ITS ---
Subjective Subjective Date of Service: 04/23/22 Interval History: cc: brbpr interval history:continued diarrhea with some blood, no pain, interested in solid diet Cardiovascular Cardiovascular: Reports no additional cardiovascular complaints Respiratory Respiratory: Reports no additional respiratory complaints Physical Exam Vital Signs: Vital Signs: Last Vital Signs Temp 97.6 F 04/23/22 00:39 Pulse 85 04/23/22 08:07 Resp 16 04/23/22 08:07 BP 113/66 04/23/22 08:07 Pulse Ox 98 04/23/22 08:07 BMI result Body Mass Index 28.3 General: AO X 3, no acute distress Resp: CTA bilateral, no accessory muscles used CVS: S1,S2,RRR GI: soft, midlly tender, non distended Neuro: motor grossly intact, alert Psych: appropriate affect, appropriate insight Objective Data Active Medications Acetaminophen (Acetaminophen 325 Mg Tablet) 650 mg PO Q6H PRN PRN Reason: Pain, Mild (Pain Scale 1-3) Hydromorphone HCl (Hydromorphone Hcl 1 Mg/Ml Syringe) 0.5 mg IVPUSH Q4H PRN; Protocol PRN Reason: Pain, Severe (Pain Scale 7-10) Dextrose/Sodium Chloride (D5ns) 1,000 mls @ 100 mls/hr IVCONT .Q10H [facility] Last Admin: 04/23/22 06:11 Dose: 100 mls/hr Documented by: BECKA Ceftriaxone Sodium 1 gm/ (Sodium Chloride) 50 mls @ 100 mls/hr IV Q24H [facility] Last Infusion: 04/23/22 08:11 Dose: 0 mls/hr Documented by: WILMA Metronidazole (Flagyl) 500 mg in 100 mls @ 100 mls/hr IV Q8H [facility] Last Infusion: 04/23/22 09:15 Dose: 100 mls/hr Documented by: WILMA Lorazepam (Lorazepam 1 Mg Tablet) 1 mg PO BID PRN PRN Reason: Anxiety Last Admin: 04/23/22 01:25 Dose: 1 mg Documented by: BECKA Melatonin (Melatonin 3 Mg Tablet) 6 mg PO BEDTIME PRN PRN Reason: Insomnia Nystatin (Nystatin Oral Susp 500,000 Unit/5 Ml Oral.Susp) 500,000 unit PO 5XD [facility]; Protocol Last Admin: 04/23/22 11:12 Dose: 500,000 unit Documented by: WILMA Pantoprazole Sodium (Pantoprazole Sodium 40 Mg/10 Ml Vial) 40 mg IVPUSH DAILY@0630 [facility] Last Admin: 04/23/22 06:11 Dose: 40 mg Documented by: BECKA Sodium Chloride (0.9 % Sodium Chloride Flush 3 Ml Syringe) 3 ml IVFLUSH QSHIFT [facility] Last Admin: 04/23/22 08:01 Dose: 3 ml Documented by: WILMA Labs CBC & Chem 7: 04/23/22 06:36 04/23/22 06:36 Labs: Laboratory Results - last 24 hr 04/22/22 04/23/22 04/23/22 11:17 06:36 06:36 MCV 75.4 L MCH 23.4 L MCHC 31.0 RDW 21.7 H Plt Count 147 L MPV 9.3 L Absolute Nucleated RBC 0.000 Nucleated RBC % (auto) 0.0 Anion Gap 9 L Estim Creat Clear Calc 69.7 Estimated GFR > 60 Fasting Glucose 113 H Calcium 7.4 L Blood Type B Positive Antibody Screen NEGATIVE Crossmatch See Detail Microbiology Microbiology Results: Microbiology 04/22/22 08:52 Stool Culture - Preliminary Stool Normal so far. Vibrio Culture - Preliminary No Vibrio species isolated. [place] Culture - Preliminary No Yersinia species isolated. 04/21/22 14:46 Blood Culture - Preliminary Blood - Venous No growth after 24 hours. 04/21/22 14:38 Blood Culture - Preliminary Blood - Venous No growth after 24 hours. Assessment and Plan (1) BRBPR (bright red blood per rectum): Status: Acute Plan 76F presented with abd pain, brbpr acute ischemic colitis cdif negative continue abx to cover superimposed bacterial infection, no evidence of sepsis ivf avoid hypotension - improved holding antihypertensives advanced to solids monitor electorylytes acute blood loss anemia due to above monitor h and h transfused 1 unit prbc 04/22, hgb improved appropriately dvt prophylaxis - mechanical due to gi bleed full code reason for continued hospitalization: due to ongiong bleeding, needs continued close montioring, awaiting tolerance of po Quality Stroke Does the patient have a stroke diagnosis?: No VTE Prior VTE?: No VTE Risk Level:: Medical - moderate - high VTE Device Contraindication: N/A - Device Ordered VTE Drug Contraindication: Treatment Not Indicated
[2022-04-23 12:35] VITALS: BMI 28.3
[2022-04-23 15:18] VITALS: BP 101/52; PULSE 98; RESP 18; TEMP 37; O2SAT 98
[2022-04-23 18:54] VITALS: BP 96/56; PULSE 100; RESP 18; TEMP 37; O2SAT 97
[2022-04-23 18:57] VITALS: BP 160/76; PULSE 61; RESP 17; TEMP 37.9; O2SAT 98
[2022-04-24] MEDS: cefTRIAXone sodium 1 GM in 0.9 % Sodium Chloride 50 ML IV (00:13)
[2022-04-24] MEDS: metroNIDAZOLE/NS 500 MG/100 ML PIGGYBACK 100 MG IV ×2 (00:14→09:08)
[2022-04-24 00:34] VITALS: BP 107/72; PULSE 97; RESP 18; TEMP 36.6; O2SAT 97
[2022-04-24] MEDS: Pantoprazole Sodium 40 MG/10 ML VIAL IVPUSH (05:54)
[2022-04-24 06:56] LABS: Hematocrit 27.1 % (37.0-47.0); Hemoglobin 8.6 g/dl (12.0-16.0); Mean Corpuscular HGB Conc 31.7 g/dl (31.0-35.0); Mean Corpuscular Volume 75.5 fL (80.0-98.0); Mean Platelet Volume 9.1 fL (9.4-12.3); Platelet Count 204 X10*3/uL (160-400); Red Blood Count 3.59 X10*6/uL (4.20-5.50); Red Cell Distribution Width 22.2 % (11.0-16.0)
[2022-04-24 07:08] LABS: Anion Gap 8 (12-20); Blood Urea Nitrogen 13 mg/dL (9-16); Calcium 7.3 mg/dL (8.4-10.2); Carbon Dioxide 26 mmol/L (22-29); Chloride 105 mmol/L (96-108); Creatinine Clr Calc Pharmacy 69.8; Estimated Glomerular Filt Rate > 60; Glucose Fasting 88 mg/dL (60-99); Potassium 3.4 mmol/L (3.3-5.1); Sodium 136 mmol/L (135-145)
[2022-04-24 07:18] VITALS: BP 104/58; PULSE 88; RESP 20; TEMP 36.3; O2SAT 97
[2022-04-24] MEDS: Potassium Chloride ER 20 MEQ TAB.ER.PRT 40 MEQ PO (09:07)
[2022-04-24] MEDS: 0.9 % Sodium Chloride Flush 3 ML SYRINGE IVFLUSH (09:08)
--- NOTE | 2022-04-24 10:54 | P.DS_ITS ---
DS: Providers Provider Date of Service: 04/24/22 Date of admission: 04/21/22 23:27 Primary care physician: Jesse Sommer MD Consults: 04/21/22 23:29 Consult to Gastroenterology Routine Consulting Provider: Harshad Kwon Reason for consultation: anemia; gi bleed; colitis DS: Diagnosis Discharge Diagnosis (1) BRBPR (bright red blood per rectum): Status: Acute DS: Summary Hospital Course Hospital Course: from initial hpi: Chief Complaint:? abdominal pain ? 76-year-old female with a past medical history of hypertension, anxiety presented to the hospital with a chief complaint of abdominal pain.? Patient reports that over the past 2 months she has been having abdominal pain which has been worsening over the past 2-3 days; abdominal pain is diffuse; reports she has episodes of nausea and diarrhea; loose watery stool; foul- smelling; denies being on antibiotics recently; patient also reports he has intermittent episodes of bright red blood per rectum but attributes to her hemor rhoids; Denies any fever chills cough or sputum production.? Denies any urinary symptoms.? Denies any chest pain or palpitations.? Review of all other systems is negative except mentioned above Patient reported that she went to her PCP or office today and noted to have low blood pressure and subsequently came to the ER for further evaluation.? ER course: Per ER team patient blood pressure on presentation noted to be 114/54; given IV fluids; on labs noted to have drop in hemoglobin; CT abdomen showed findings consistent with colitis; given antibiotics.? Admitted for further management. hospital course: Patient was admitted for acute ischemic colitis due to hypotension. She was treated with IV fluids, holding antihypertensives, empiric antibiotics for superimposed bacterial infection. Course was complicated by acute blood loss anemia due to the colitis. She received 1 unit of packed RBCs and hemoglobin improved appropriately and remained stable. Patient's abdominal pain and diarr hea significantly improved, she had no more blood in her stool, she tolerated solid diet. She will be discharged home on 7 more days of cefuroxime and Flagyl, will continue to hold amlodipine and losartan, her blood pressure should be monitored as outpatient. Time Spent with Patient Time attestation: Total time spent providing and/or coordinating discharge services: Discharge coordination time: Greater than 30 minutes Quality: Safe Use of Opioids Does Pt have an Active Cancer Diagnosis on the Problem List?: No Quality: Stroke Does the patient have a stroke diagnosis?: No Physical Exam Vital Signs: Vital Signs: Last Vital Signs Temp 97.3 F 04/24/22 07:18 Pulse 88 04/24/22 07:18 Resp 20 04/24/22 07:18 BP 104/58 L 04/24/22 07:18 Pulse Ox 97 04/24/22 07:18 BMI result Body Mass Index 28.3 General: AO X 3, no acute distress Resp: CTA bilateral, no accessory muscles used CVS: S1,S2,RRR GI: soft, non tender, non distended Neuro: motor grossly intact, alert Psych: appropriate affect, appropriate insight DS: Data Data Completed and Pending Labs on day of discharge: Laboratory Results - last 24 hr 04/24/22 04/24/22 06:27 06:28 WBC 12.0 H RBC 3.59 L Hgb 8.6 L Hct 27.1 L MCV 75.5 L MCH 24.0 L MCHC 31.7 RDW 22.2 H Plt Count 204 D MPV 9.1 L Absolute Nucleated RBC 0.000 Nucleated RBC % (auto) 0.0 Sodium 136 Potassium 3.4 Chloride 105 Carbon Dioxide 26 Anion Gap 8 L BUN 13 Creatinine 0.63 Estim Creat Clear Calc 69.8 Estimated GFR > 60 Fasting Glucose 88 Calcium 7.3 L Preliminary micro results at discharge 04/22/22 08:52 Stool Culture - Preliminary Stool Normal so far. 04/21/22 14:46 Blood Culture - Preliminary Blood - Venous No growth after 48 hours. 04/21/22 14:38 Blood Culture - Preliminary Blood - Venous No growth after 48 hours. Discharge Plan Discharge Patient Disposition: Home, Self-Care Discharge Diagnosis: ischemic colitis, anemia Referrals: Jesse Guadalupe MD [Primary Care Provider] - 1 Week Discharge Medications: New cefuroxime axetil 500 mg tablet 500 mg PO Q12H Qty: 14 0RF metronidazole 500 mg tablet 500 mg PO BID Qty: 14 0RF Continued nystatin 100,000 unit/mL Suspension 5 ml PO 5XD 0RF Rx Instructions: swish and swallow. for 2 weeks starting 04/21/22 lorazepam 1 mg tablet 1 tab PO BID PRN (Reason: Anxiety) 0RF ondansetron 4 mg tablet,disintegrating 1 tab PO BID PRN (Reason: Nausea) 0RF dicyclomine 10 mg capsule 1 cap PO TID 0RF Rx Instructions: for 10 days only started 04/21 clindamycin phosphate 1 % Solution 1 appl TOPICAL BID 0RF Discontinued losartan 50 mg tablet 1 tab PO DAILY 0RF amlodipine 5 mg tablet 1 tab PO DAILY 0RF Discharge Orders: Discharge Order (Routine); Ordered 04/24/22 Ordered By: Iggy Christianson Diet: advance to usual diet Activity on Discharge: As tolerated Stand Alone Forms: Patient Portal Discharge page Care Plan Goals: recovery Health Concerns: ischemic colitis, Plan of Treatment: stop blood pressure meds for now (monitor blood pressure), one week of antibiotics Assessment: see above
--- NOTE | 2022-04-24 11:14 | MHC.CM.PN ---
Patient has been medically cleared for dc to home today, self care. Last IMM addressed on 04/22/22.
[2022-04-24 11:29] VITALS: BP 114/66; PULSE 93; RESP 17; TEMP 36.6; O2SAT 97
[2022-04-24] MEDS: Nystatin Oral Susp 500,000 UNIT/5 ML ORAL.SUSP 500000 UNIT PO (12:21)
== END 2022-04-24 13:47 | disposition home or self-care (01) | DRG 394 ==
LOC: HO.ED 21:08 → HO.EDOVER 23:32 → HO.IMC 04-23 10:42
PROVIDERS: Admitting Provider Hospitalist; Emergency Provider Internal Medicine; PCP Family Medicine; Visit Provider Internal Medicine
DX: K55.031 Focal (segmental) acute (reversible) ischemia of large intestine (principal); D62 Acute posthemorrhagic anemia; A09 Infectious gastroenteritis and colitis, unspecified; I95.9 Hypotension, unspecified; I10 Essential (primary) hypertension; Z20.822 Contact with and (suspected) exposure to COVID-19; F41.9 Anxiety disorder, unspecified; Z88.0 Allergy status to penicillin; Z88.2 Allergy status to sulfonamides; Z91.013 Allergy to seafood; Z79.899 Other long term (current) drug therapy
CPT/HCPCS: 36415; 71046; 74176; 80048; 80053; 81001; 81003; 82272; 83605; 83690; 85007; 85025; 85027; 86850; 86900; 86901; 86923; 87040; 87045; 87046; 87493; 87502; 87635; 89055; 93005; 96361; 96365; 96375; 99285; J0696; J2270; J2405; P9016

== ENCOUNTER 2022-05-08 17:45 | Inpatient (IN) | payer MEDICARE, SELFPAY ==
--- NOTE | ~2022-05-08 | XR_ITS ---
EXAMINATION: XR CHEST CLINICAL INFORMATION: Line placement COMPARISON: Earlier same date TECHNIQUE: Frontal view of the chest was obtained. XR/XR chest 1V FINDINGS/IMPRESSION: Endotracheal tube is been retracted, now resides 2.5 cm above the duran. Enteric tube passes through the stomach. Right internal jugular central venous catheter terminates in the proximal SVC. At the superior cavoatrial junction. Left internal jugular venous Small left pleural effusion and accompanying atelectasis. Right lung clear. No pneumothorax. Normal heart size and pulmonary vascularity.
--- NOTE | ~2022-05-08 | XR_ITS ---
EXAMINATION: XR CHEST CLINICAL INFORMATION: [facility] COMPARISON: CT dated 05/12/2022 TECHNIQUE: Frontal view of the chest was obtained. XR/XR chest 1V FINDINGS/IMPRESSION: Intraperitoneal free air redemonstrated. Bibasilar subsegmental atelectasis, more pronounced at left lung base. Small left pleural effusion. Normal heart size and pulmonary vascularity. Aorta is atherosclerotic.
--- NOTE | ~2022-05-08 | CT_ITS ---
EXAMINATION: CT ABDOMEN AND PELVIS WITH CONTRAST CLINICAL INFORMATION: Heme positive stools with recent colitis COMPARISON: CT abdomen pelvis 04/21/2022 TECHNIQUE: Multidetector volumetric images were obtained from the superior aspect of the liver through the pubic symphysis following administration of 75 mL of Omnipaque 300 intravenous contrast. Sagittal and coronal reformatted images were obtained on the technologist's workstation. Oral contrast: No This CT examination was performed using dose optimization techniques as appropriate, variously including the following: *Automated exposure control *Adjustment of mA and/or kV according to patient size (this includes techniques or standardized protocols for targeted exams where dose is matched to indication/reason for exam; i.e. extremities or head) *Use of iterative reconstruction technique DLP: 522 mGy-cm FINDINGS: LUNG BASES: The visualized lung bases are unremarkable. Aside from atelectasis. LIVER, GALLBLADDER, AND BILIARY TREE: The liver is mildly enlarged measuring 17.5 cm in length and demonstrates decreased attenuation suggesting hepatic steatosis. There are areas of focal fatty sparing. No focal hepatic lesion or biliary ductal dilatation is present. Some air is present in the biliary tree status post cholecystectomy PANCREAS: Unremarkable. SPLEEN: Unremarkable. ADRENAL GLANDS: Unremarkable. KIDNEYS AND URETERS: The kidneys are normal in size, shape, and attenuation. No hydronephrosis, hydroureter, or calculi seen. No perinephric stranding. BLADDER: Unremarkable. GASTROINTESTINAL TRACT: There is continued presence of colitis involving the distal transverse colon, splenic fracture and descending colon and rectosigmoid. Same distribution as previously noted but there are increased pericolonic inflammatory change. No pneumatosis. No free air There is an increased amount of free intraperitoneal fluid in the pelvis compared to the prior. The small and large bowel are otherwise unremarkable. The appendix is unremarkable. ABDOMINAL WALL: No significant hernia is appreciated. LYMPH NODES: No retroperitoneal lymphadenopathy. VASCULAR: Marked atherosclerotic changes present in the aorta and iliofemoral vessels with calcified plaque but no aneurysm. The celiac SMA and TUAN are all patent, but the TUAN has a mild ostial stenosis. PELVIC VISCERA: An anteverted uterus is present. An abnormal adnexal mass is not seen. OSSEOUS STRUCTURES: Degenerative changes are present throughout the spine. CT/CT abdomen pelvis w con IMPRESSION: Worsening appearance of the entire left colon with mucosal thickening and pericolonic inflammatory changes with increasing free pelvic fluid. Findings are consistent with worsening colitis. Fleischner guidelines were followed.
--- NOTE | ~2022-05-08 | CT_ITS ---
EXAMINATION: CT ABDOMEN AND PELVIS WITH CONTRAST CLINICAL INFORMATION: Colitis. Increased white count. Rule out abscess. COMPARISON: None TECHNIQUE: Multidetector volumetric images were obtained from the superior aspect of the liver through the pubic symphysis following administration 85 mL of Omnipaque 350 intravenous contrast. Sagittal and coronal reformatted images were obtained on the technologist's workstation. Oral contrast: No This CT examination was performed using dose optimization techniques as appropriate, variously including the following: *Automated exposure control *Adjustment of mA and/or kV according to patient size (this includes techniques or standardized protocols for targeted exams where dose is matched to indication/reason for exam; i.e. extremities or head) *Use of iterative reconstruction technique DLP: 521 mGy-cm FINDINGS: LUNG BASES: There is a small left pleural effusion with underlying atelectasis or scarring. Minimal patchy groundglass attenuation seen in the lingula as well. Heart size is normal. LIVER, GALLBLADDER, AND BILIARY TREE: The liver is normal in size, shape, and diffusely hypoattenuated. There is focal fatty sparing along the right hepatic lobe. No focal hepatic lesion or biliary ductal dilatation is present. There is mild left hepatic pneumobilia. The gallbladder has been surgically removed there is. There is diffuse ascites. PANCREAS: Unremarkable. SPLEEN: Unremarkable. ADRENAL GLANDS: Unremarkable. KIDNEYS AND URETERS: The kidneys are normal in size, shape, and attenuation. No hydronephrosis, hydroureter, or calculi seen. No perinephric stranding. BLADDER: Unremarkable. GASTROINTESTINAL TRACT: There is a small amount of free air in the upper abdomen. There is nonfilling mild mural thickening seen in the transverse and descending colon with multiple diverticuli but no pericolic fat stranding seen. Early diverticulitis cannot be entirely excluded. There is a punctate extraluminal air in the sigmoid colon on sagittal image 51/5. There is diffuse ascites. ABDOMINAL WALL: There is diffuse abdominal wall edema. LYMPH NODES: Normal. VASCULAR: Unremarkable. PELVIC VISCERA: The uterus is anteverted and appears unremarkable. There is no adnexal mass or free fluid seen. No abnormal pelvic or inguinal lymph nodes seen. OSSEOUS STRUCTURES: There is degenerative disc changes with vacuum disc phenomena L5-S1, L4-L5 and L2-L3 disc levels. There is mild ventral spondylosis. No lytic or sclerotic process seen.. CT/CT abdomen pelvis w con IMPRESSION: Mild colonic thickening involving sigmoid, descending and transverse colon question early diverticulitis. There is free air seen upper abdomen with a punctate air collection adjacent to sigmoid colon in the pelvis. Question related to perforation or previous intervention such as peritoneal dialysis. Correlate with surgical consultation. Free fluid and diffuse anterior abdominal wall edema is noted. Hepatic steatosis with areas of focal fatty sparing. Evidence of cholecystectomy. Small left pleural effusion and minimal right posterior pleural thickening with compressive atelectasis left lung base and minimal atelectatic changes in the lingula. Fleischner guidelines were followed.
--- NOTE | ~2022-05-08 | XR_ITS ---
EXAMINATION: XR CHEST CLINICAL INFORMATION: Intubated. Central line placement. COMPARISON: Earlier same date TECHNIQUE: Frontal view of the chest was obtained. XR/XR chest 1V FINDINGS/IMPRESSION: * Endotracheal tube terminates in the proximal right mainstem bronchus. Recommend retraction. * New right internal jugular central venous catheter terminates in right atrium. * Stable left basilar subsegmental atelectasis. * No pneumothorax. * Intraperitoneal free air are demonstrated.
--- NOTE | 2022-05-08 17:58 | ED.ABDPAIN ---
HPI - Abdominal Pain General Chief Complaint: Abdominal Pain Stated Complaint: abd cramping Time Seen by Provider: 05/08/22 20:28 Source: patient and EMS Mode of arrival: EMS Limitations: no limitations History of Present Illness HPI narrative: 77-year-old female presents via EMS for worsening abdominal pain, bloating, and bloody diarrhea. Patient was admitted to this facility on 04/21/2022 for colitis and discharged on 04/24. MD elicited complaint: abdominal pain Pertinent past history: other (Colitis) Onset (ago): week(s) Pain Consistency: constant Location: diffuse Severity: severe Pain scale (0-10): 9 Quality: cramping and aching Exacerbating factors: eating and movement Relieving factors: nothing Context: recent antibiotic use Associated symptoms: diarrhea, fever and chills Related Data Home Medications Medication Instructions Recorded Confirmed lorazepam 1 mg tablet 1 tab PO BEDTIME PRN Anxiety 04/21/22 05/08/22 multivitamin 1 tab PO DAILY 05/08/22 05/08/22 omeprazole 20 mg capsule,delayed 20 mg PO DAILY 05/08/22 05/08/22 release Allergies Allergy/AdvReac Type Severity Reaction Status Date / Time Fish Containing Products Allergy Unknown HIVES TO Verified 04/21/22 14:16 COD Penicillins [PENICILLINS] Allergy Unknown UNKNOWN Verified 04/21/22 14:16 Sulfa (Sulfonamide Allergy Unknown HIVES Verified 04/21/22 14:16 Antibiotics) [SULFA (SULFONAMIDE ANTIBIOTICS)] sulfamethoxazole Allergy Unknown HIVES Verified 04/21/22 14:16 [From BACTRIM] trimethoprim [From BACTRIM] Allergy Unknown HIVES Verified 04/21/22 14:16 Review of Systems Review of Systems Constitutional: Positive Fever, positive Chills, positive fatigue ENT/Mouth: No Ear Pain, No Hoarseness, No sore throat Eyes: No Eye Pain, No Swelling, No Redness, No Foreign Body Cardiovascular: No Chest Pain, positive SOB, positive edema bilaterally Respiratory: No Cough, No Dyspnea Gastrointestinal: No Nausea, No Vomiting, positive Diarrhea, positive abdominal Pain Genitourinary: No Dysuria, No Hematuria Musculoskeletal: No joint pain, No Myalgias, No Joint Swelling Skin: No Skin lacerations, No rash Neuro: No Weakness, No Numbness, No Paresthesias, No Loss of Consciousness, No Dizziness, No Headache Psych: No Anxiety/Panic, No Depression Heme/Lymph: no easy bruising, no Lymphadenopathy Endocrine: No Polyuria, No Polydipsia Yes all other systems are reviewed and are negative [facility] Past Medical History Attestation statement: The following information was validated with the patient. Source: old records reviewed Medical History Hypertension Social History Social History Household Members: Spouse Housing: House Do you presently have visiting nurse or other home services: No Patient Tobacco Use Status: Former Tobacco user Second Hand Smoke Exposure: No Advance Directives: No Advance Directives Information Provided: No service: No Current occupational status: retired Current occupational exposures/hazards: No Physical Exam ED Vital Signs: Vital Signs - 24 hr 05/08/22 18:00 05/08/22 18:37 05/08/22 20:17 Temperature 98.1 F Pulse Rate 123 H 110 H Respiratory Rate 18 19 16 Blood Pressure 130/74 123/71 Pulse Oximetry 96 98 Oxygen Delivery Method Room Air Room Air 05/08/22 21:44 Temperature Pulse Rate 110 H Respiratory Rate 24 H Blood Pressure 100/60 Pulse Oximetry Oxygen Delivery Method BMI result Body Mass Index 32.9 Appearance: Alert. Oriented X3. Moderate distress. Pale Eyes: Pupils equal, round and reactive to light. Sclera nonicteric. ENT: Pharynx normal. Dry mucous membranes. Neck: Normal inspection. Neck supple. No JVD. CVS: Tachycardic heart rate and rhythm. Apical pulse is equal to pulses to extremities. Respiratory: No respiratory distress. Breath sounds normal. Abdomen: Soft and diffusely tender. Distended. Non rigidity. Skin: Skin warm and dry. Normal skin color. Normal skin turgor. Extremities: Bilateral lower extremity edema. Pitting. Moves all extremities against resistance. Gait not tested for safety. Neuro: No motor deficit. No sensory deficit. Cranial nerves 2-12 intact. Course Course Course Narrative: 77-year-old female presents via EMS for abdominal pain, bloody diarrhea, abdominal distention, tachycardia, fatigue, and bilateral lower extremity edema. Patient stated the edema started shortly after being discharged from the hospital. She is on antibiotics for colitis. Admitted on 04/21/2022 and discharged on 04/24. Patient states that she has not felt very well since discharge and symptoms have worsened. Unable to tolerate p.o. fluids and food. Last meal was around noon where she had small bites and could not eat. She does report completing her antibiotics. Noticed yellow brown stools with bright red blood at times. Patient has had episodes of incontinence because of diarrhea. Will order labs, type and screen, L fluids. 19:00 lactic elevated 3.1 white count is 16.3, H&H 9.9/31.0, patient is not hypotensive, does not fit 30 milliliters/kilogram fluid resuscitation. Does not meet sepsis criteria. Based on patient's history of colitis, will start Flagyl and ceftriaxone. 20:36 discussion with hospitalist, plan of care is to admit for colitis. Consultations Consultation #1: Jignesh Time: 20:36 MDM - Abdominal Pain Differential Diagnosis Differential diagnosis: Likely abdominal pain, bowel perforation and diverticulitis Differential diagnosis narrative:: Colitis Medical Records Attestation: I reviewed the patient's medical records. Lab Data Attestation: I reviewed the patient's lab results. Result diagrams: 05/08/22 18:35 05/08/22 18:35 Labs: Lab Results 05/08/22 05/08/22 05/08/22 Range/Units 18:08 18:18 18:33 WBC (4.8-10.8) X10*3/uL RBC (4.20-5.50) X10*6/uL Hgb (12.0-16.0) g/dl Hct (37.0-47.0) % MCV (80.0-98.0) fL MCH (27.0-33.0) pg MCHC (31.0-35.0) g/dl RDW (11.0-16.0) % Plt Count (160-400) X10*3/uL MPV (9.4-12.3) fL Immature Gran % (Auto) (0.0-0.4) % Neut % (Auto) (45-73) % Lymph % (Auto) (20-40) % [place] % (Auto) (2-11) % Eos % (Auto) (0-4) % Baso % (Auto) (0-2) % Lymph # (Auto) (1.2-4.9) X10*3/uL [place] # (Auto) (0.1-1.2) X10*3/uL Eos # (Auto) (0.0-0.4) X10*3/uL Baso # (Auto) (0.0-0.2) X10*3/uL Abs Immat Gran (auto) (0.00-0.03) X10*3/uL Absolute Neuts (auto) (2.0-8.3) x10*3/uL Absolute Nucleated RBC (0.0-0.012) X10*3/uL Nucleated RBC % (auto) (0.0-0.2) /100WBC PT (9.9-13.0) SEC INR (0.9-1.1) APTT (24.1-38.0) SEC Sodium (135-145) mmol/L Potassium (3.3-5.1) mmol/L Chloride (96-108) mmol/L Carbon Dioxide (22-29) mmol/L Anion Gap (12-20) BUN (9-16) mg/dL Creatinine (0.5-1.4) mg/dL Estim Creat Clear Calc Estimated GFR Random Glucose (60-115) mg/dL Lactic Acid (0.5-2.0) mmol/L Lactic Acid F/U @ 2Hr (0.5-2.0) mmol/L Calcium (8.4-10.2) mg/dL Magnesium (1.6-2.6) mg/dL Total Bilirubin (0.0-1.0) mg/dL Direct Bilirubin (0.0-0.5) mg/dL AST (5-31) U/L ALT (0-31) U/L Alkaline Phosphatase (39-117) U/L Troponin I High Sens (<3.5-17.0) ng/L B-Natriuretic Peptide (<100) pg/mL Total Protein (6.5-8.0) g/dL Albumin (3.5-5.0) g/dL Lipase (8-78) U/L Stool Occult Blood POSITIVE (NEGATIVE) Influenza Type A (PCR) NEGATIVE (Negative) Influenza Type B (PCR) NEGATIVE (Negative) RSV RNA Qual (PCR) NEGATIVE (Negative) SARS-CoV-2 RNA (RT-PCR) NEGATIVE (Negative) Blood Type B Positive Antibody Screen NEGATIVE 05/08/22 05/08/22 05/08/22 Range/Units 18:34 18:34 18:35 WBC 16.3 H (4.8-10.8) X10*3/uL RBC 3.98 L (4.20-5.50) X10*6/uL Hgb 9.9 L (12.0-16.0) g/dl Hct 31.0 L (37.0-47.0) % MCV 77.9 L (80.0-98.0) fL MCH 24.9 L (27.0-33.0) pg MCHC 31.9 (31.0-35.0) g/dl RDW 25.4 H (11.0-16.0) % Plt Count 326 D (160-400) X10*3/uL MPV 8.9 L (9.4-12.3) fL Immature Gran % (Auto) 1.6 H (0.0-0.4) % Neut % (Auto) 83.2 H (45-73) % Lymph % (Auto) 11.4 L (20-40) % [place] % (Auto) 3.4 (2-11) % Eos % (Auto) 0.2 (0-4) % Baso % (Auto) 0.2 (0-2) % Lymph # (Auto) 1.9 (1.2-4.9) X10*3/uL [place] # (Auto) 0.6 (0.1-1.2) X10*3/uL Eos # (Auto) 0.0 (0.0-0.4) X10*3/uL Baso # (Auto) 0.0 (0.0-0.2) X10*3/uL Abs Immat Gran (auto) 0.26 H (0.00-0.03) X10*3/uL Absolute Neuts (auto) 13.6 H (2.0-8.3) x10*3/uL Absolute Nucleated RBC 0.030 H (0.0-0.012) X10*3/uL Nucleated RBC % (auto) 0.2 (0.0-0.2) /100WBC PT (9.9-13.0) SEC INR (0.9-1.1) APTT (24.1-38.0) SEC Sodium (135-145) mmol/L Potassium (3.3-5.1) mmol/L Chloride (96-108) mmol/L Carbon Dioxide (22-29) mmol/L Anion Gap (12-20) BUN (9-16) mg/dL Creatinine (0.5-1.4) mg/dL Estim Creat Clear Calc Estimated GFR Random Glucose (60-115) mg/dL Lactic Acid 3.1 H* (0.5-2.0) mmol/L Lactic Acid F/U @ 2Hr (0.5-2.0) mmol/L Calcium (8.4-10.2) mg/dL Magnesium (1.6-2.6) mg/dL Total Bilirubin (0.0-1.0) mg/dL Direct Bilirubin (0.0-0.5) mg/dL AST (5-31) U/L ALT (0-31) U/L Alkaline Phosphatase (39-117) U/L Troponin I High Sens 9.0 (<3.5-17.0) ng/L B-Natriuretic Peptide 161 H (<100) pg/mL Total Protein (6.5-8.0) g/dL Albumin (3.5-5.0) g/dL Lipase (8-78) U/L Stool Occult Blood (NEGATIVE) Influenza Type A (PCR) (Negative) Influenza Type B (PCR) (Negative) RSV RNA Qual (PCR) (Negative) SARS-CoV-2 RNA (RT-PCR) (Negative) Blood Type Antibody Screen 05/08/22 05/08/22 05/08/22 Range/Units 18:35 18:35 20:59 WBC (4.8-10.8) X10*3/uL RBC (4.20-5.50) X10*6/uL Hgb (12.0-16.0) g/dl Hct (37.0-47.0) % MCV (80.0-98.0) fL MCH (27.0-33.0) pg MCHC (31.0-35.0) g/dl RDW (11.0-16.0) % Plt Count (160-400) X10*3/uL MPV (9.4-12.3) fL Immature Gran % (Auto) (0.0-0.4) % Neut % (Auto) (45-73) % Lymph % (Auto) (20-40) % [place] % (Auto) (2-11) % Eos % (Auto) (0-4) % Baso % (Auto) (0-2) % Lymph # (Auto) (1.2-4.9) X10*3/uL [place] # (Auto) (0.1-1.2) X10*3/uL Eos # (Auto) (0.0-0.4) X10*3/uL Baso # (Auto) (0.0-0.2) X10*3/uL Abs Immat Gran (auto) (0.00-0.03) X10*3/uL Absolute Neuts (auto) (2.0-8.3) x10*3/uL Absolute Nucleated RBC (0.0-0.012) X10*3/uL Nucleated RBC % (auto) (0.0-0.2) /100WBC PT 15.8 H (9.9-13.0) SEC INR 1.4 H (0.9-1.1) APTT 19.1 L (24.1-38.0) SEC Sodium 131 L (135-145) mmol/L Potassium 2.7 L D (3.3-5.1) mmol/L Chloride 94 L (96-108) mmol/L Carbon Dioxide 27 (22-29) mmol/L Anion Gap 13 (12-20) BUN 15 (9-16) mg/dL Creatinine 0.68 (0.5-1.4) mg/dL Estim Creat Clear Calc 66.0 Estimated GFR > 60 Random Glucose 113 (60-115) mg/dL Lactic Acid (0.5-2.0) mmol/L Lactic Acid F/U @ 2Hr 1.4 (0.5-2.0) mmol/L Calcium 7.9 L D (8.4-10.2) mg/dL Magnesium 1.9 (1.6-2.6) mg/dL Total Bilirubin 0.8 (0.0-1.0) mg/dL Direct Bilirubin 0.5 (0.0-0.5) mg/dL AST 31 D (5-31) U/L ALT 22 (0-31) U/L Alkaline Phosphatase 77 (39-117) U/L Troponin I High Sens (<3.5-17.0) ng/L B-Natriuretic Peptide (<100) pg/mL Total Protein 5.2 L (6.5-8.0) g/dL Albumin 2.1 L (3.5-5.0) g/dL Lipase 23 (8-78) U/L Stool Occult Blood (NEGATIVE) Influenza Type A (PCR) (Negative) Influenza Type B (PCR) (Negative) RSV RNA Qual (PCR) (Negative) SARS-CoV-2 RNA (RT-PCR) (Negative) Blood Type Antibody Screen Imaging Data CT abdomen pelvis with contrast: Attestation: I personally reviewed and interpreted this imaging study as follows: Radiologist's impression: FINDINGS: LUNG BASES: The visualized lung bases are unremarkable. Aside from atelectasis.? LIVER, GALLBLADDER, AND BILIARY TREE: The liver is mildly enlarged measuring 17.5 cm in length and demonstrates decreased attenuation suggesting hepatic steatosis. There are areas of focal fatty sparing. No focal hepatic lesion or biliary ductal dilatation is present. Some air is present in the biliary tree status post cholecystectomy? PANCREAS: Unremarkable.? SPLEEN: Unremarkable.? ADRENAL GLANDS: Unremarkable.? KIDNEYS AND URETERS: The kidneys are normal in size, shape, and attenuation. No hydronephrosis, hydroureter, or calculi seen. No perinephric stranding. ? BLADDER: Unremarkable.? GASTROINTESTINAL TRACT: There is continued presence of colitis involving the distal transverse colon, splenic fracture and descending colon and rectosigmoid. Same distribution as previously noted but there are increased pericolonic inflammatory change. No pneumatosis. No free air There is an increased amount of free intraperitoneal fluid in the pelvis compared to the prior. The small and large bowel are otherwise unremarkable. The appendix is unremarkable.? ABDOMINAL WALL: No significant hernia is appreciated.? LYMPH NODES: No retroperitoneal lymphadenopathy. VASCULAR: Marked atherosclerotic changes present in the aorta and iliofemoral vessels with calcified plaque but no aneurysm. The celiac SMA and TUAN are all patent, but the TUAN has a mild ostial stenosis. PELVIC VISCERA: An anteverted uterus is present. An abnormal adnexal mass is not seen.? OSSEOUS STRUCTURES: Degenerative changes are present throughout the spine.? CT/CT abdomen pelvis w con IMPRESSION: Worsening appearance of the entire left colon with mucosal thickening and pericolonic inflammatory changes with increasing free pelvic fluid. Findings are consistent with worsening colitis. ? Fleischner guidelines were followed. ECG Data Attestation: I personally reviewed and interpreted this ECG as follows: ECG interpretation date: 05/08/22 ECG interpretation time: 19:38 Prior ECG tracings: available for review Interpretation: Vent. rate 103 BPM SC interval 130 ms QRS duration 90 ms QT/QTc 304/398 ms P-R-T axes 30 -40 97 Sinus tachycardia with occasional Premature ventricular complexes Left axis deviation Possible Anterior infarct (cited on or before 21-APR-2022) Abnormal ECG When compared with ECG of 21-APR-2022 14:21, Premature ventricular complexes are now Present Critical Care Time Critical Care Time Critical Care Time: Yes Total Critical Care Time: 45 Attestation: I have personally provided critical care time exclusive of time spent on separately billable procedures. Time includes review of laboratory data, radiology results, discussion with consultants, and monitoring for potential decompensation. Interventions were performed as documented. Discharge Plan Discharge Prescriptions: No Action lorazepam 1 mg tablet 1 tab PO BEDTIME PRN (Reason: Anxiety) multivitamin Tablet 1 tab PO DAILY omeprazole 20 mg Capsule,Delayed Release(Dr/Ec) 20 mg PO DAILY
--- NOTE | 2022-05-08 17:59 | ECG_ITS ---
Test Reason : SEPSIS Blood Pressure : / mmHG Vent. Rate : 103 BPM Atrial Rate : 103 BPM P-R Int : 130 ms QRS Dur : 090 ms QT Int : 304 ms P-R-T Axes : 030 -40 097 degrees QTc Int : 398 ms Sinus tachycardia with occasional Premature ventricular complexes Left axis deviation Possible Anterior infarct (cited on or before 21-APR-2022) Abnormal ECG When compared with ECG of 21-APR-2022 14:21, Premature ventricular complexes are now Present Referred By: Laura More Electronically Signed By:TENNILLE TSE
[2022-05-08 18:00] VITALS: BP 130/74; BP 132/76; PULSE 123; PULSE 128; RESP 18; TEMP 36.7; O2SAT 96; BMI 32.9
[2022-05-08] MEDS: 0.9 % Sodium Chloride 1,000 ML 999 ML IVCONT (18:04)
[2022-05-08 18:14] LABS: OBS Int Ctl Valid YES; OBS1 POSITIVE (NEGATIVE)
[2022-05-08 18:37] VITALS: BP 123/71; PULSE 110; RESP 19; O2SAT 98
[2022-05-08 18:42] LABS: MANUAL DIFF FLAG NO
[2022-05-08 18:52] LABS: INTERNATIONAL NORM RATIO 1.4 (0.9-1.1); Prothrombin Time 15.8 SEC (9.9-13.0)
[2022-05-08 18:56] LABS: Basophils Percent Auto 0.2 % (0-2); Eosinophils Percent Auto 0.2 % (0-4); Hemoglobin 9.9 g/dl (12.0-16.0); Imm Gran Abs Auto 0.26 X10*3/uL (0.00-0.03); Imm Gran Pct Auto 1.6 % (0.0-0.4); Lymphocytes Absolute Auto 1.9 X10*3/uL (1.2-4.9); Lymphocytes Percent Auto 11.4 % (20-40); Mean Corpuscular HGB Conc 31.9 g/dl (31.0-35.0); Mean Corpuscular Hemoglobin 24.9 pg (27.0-33.0); Mean Corpuscular Volume 77.9 fL (80.0-98.0); Mean Platelet Volume 8.9 fL (9.4-12.3); Monocytes Absolute Auto 0.6 X10*3/uL (0.1-1.2); Monocytes Percent Auto 3.4 % (2-11); NRBC Pct Auto 0.2 /100WBC (0.0-0.2); Neutrophils Absolute Auto 13.6 x10*3/uL (2.0-8.3); Neutrophils Percent Auto 83.2 % (45-73); Platelet Count 326 X10*3/uL (160-400); Red Blood Count 3.98 X10*6/uL (4.20-5.50); Red Cell Distribution Width 25.4 % (11.0-16.0); White Blood Count 16.3 X10*3/uL (4.8-10.8)
[2022-05-08 19:01] LABS: Partial Thromboplastin Time 19.1 SEC (24.1-38.0)
[2022-05-08 19:01] LABS: Lactic Acid 3.1 mmol/L (0.5-2.0)
[2022-05-08 19:05] LABS: Alanine Aminotransferase 22 U/L (0-31); Albumin Level 2.1 g/dL (3.5-5.0); Alkaline Phosphatase 77 U/L (39-117); Anion Gap 13 (12-20); Aspartate Amino Transferase 31 U/L (5-31); Bilirubin Direct 0.5 mg/dL (0.0-0.5); Bilirubin Total 0.8 mg/dL (0.0-1.0); Blood Urea Nitrogen 15 mg/dL (9-16); Calcium 7.9 mg/dL (8.4-10.2); Carbon Dioxide 27 mmol/L (22-29); Chloride 94 mmol/L (96-108); Estimated Glomerular Filt Rate > 60; Glucose Random 113 mg/dL (60-115); Lipase 23 U/L (8-78); Magnesium 1.9 mg/dL (1.6-2.6); Potassium 2.7 mmol/L (3.3-5.1); Sodium 131 mmol/L (135-145); Total Protein 5.2 g/dL (6.5-8.0)
[2022-05-08 19:06] LABS: B Type Natriuretic Peptide 161 pg/mL (<100)
[2022-05-08 19:24] LABS: Influenza A PCR NEGATIVE (Negative); Influenza B PCR NEGATIVE (Negative); Resp Syncy Virus RNA Qual PCR NEGATIVE (Negative); SARS COV2 PCR INHOUSE NEGATIVE (Negative)
--- NOTE | 2022-05-08 19:30 | PC.NURSE ---
Pt not at bedside, with radiology, waiting EKG on return
[2022-05-08] MEDS: cefTRIAXone sodium 1 GM in 0.9 % Sodium Chloride 50 ML IV (19:42)
--- NOTE | 2022-05-08 20:01 | PHA.MEDREC ---
Pharmacy Consult ? Medication Reconciliation Pharmacy has completed the medication reconciliation. Patient and reported medications. Reports she is not taking dicyclomine. Brenna Hahn, RegD
[2022-05-08] MEDS: metroNIDAZOLE/NS 500 MG/100 ML PIGGYBACK 100 MG IV (20:16)
[2022-05-08] MEDS: ondansetron HCL 4 MG/2 ML VIAL IVPUSH (20:16)
[2022-05-08 20:17] VITALS: RESP 16
[2022-05-08] MEDS: HYDROmorphone HCl 0.5 MG/0.5 ML SYRINGE IVPUSH (20:17)
--- NOTE | 2022-05-08 20:27 | PC.NURSE ---
Pt O2 decreased due to dilaudid, placed on 2 LPM via NC. Good results, up to 95%
[2022-05-08 20:42] LABS: Reflex Lactate? Lactic Acid Added
[2022-05-08 21:21] LABS: ~Lactic Acid-LAB USE ONLY 1.4 mmol/L (0.5-2.0)
[2022-05-08 21:44] VITALS: BP 100/60; PULSE 110; RESP 24
[2022-05-08] MEDS: Potassium Chloride/H20 10 MEQ/100 ML PIGGYBACK 100 MEQ IV (21:50)
--- NOTE | 2022-05-08 22:18 | P.HPHOSP_ITS ---
History of Present Illness Date of Service: 05/08/22 Chief Complaint: Abdominal pain 77-year-old female with a past medical history of hypertension, CHF-compensated, anxiety, recent admission to the hospital for colitis-concern for ischemia/infectious; discharged on p.o. antibiotics on 04/24/2022; presented back today to the hospital with a chief complaint of abdominal pain. Patient reports that since her discharge she never felt better, continued to have abdominal pain intermittently, crampy in nature, associated diarrhea, loose watery; also mentions she noticed couple of episodes of blood in the stool. Mentions she has poor oral intake. Denies any nausea vomiting. Denies any chest pain or palpitations. Denies any urinary symptoms. Denies any fever chills cough. Review of all other systems is negative except mentioned above ER course: Per ER team patient noted diffuse abdominal tenderness; CT scan showed left- sided colitis; stool guaiac positive; hemoglobin fairly stable; blood pressure on soft diet. Also noted to have trace pedal edema. Given concerns for history of CHF-patient was not given 30 cc/kg IV fluids for sepsis in the setting of colitis. Patient received 1 L of normal saline. Blood pressure on soft diet. Admitted to the hospital for further management. Patient also received IV antibiotics. [facility] [place] Medical History Hypertension Social History Household Members: Spouse Housing: House Do you presently have visiting nurse or other home services: No Patient Tobacco Use Status: Former Tobacco user Second Hand Smoke Exposure: No Advance Directives: No Advance Directives Information Provided: No service: No Current occupational status: retired Current occupational exposures/hazards: No Meds Allergies Allergy/AdvReac Type Severity Reaction Status Date / Time Fish Containing Products Allergy Unknown HIVES TO Verified 04/21/22 14:16 COD Penicillins [PENICILLINS] Allergy Unknown UNKNOWN Verified 04/21/22 14:16 Sulfa (Sulfonamide Allergy Unknown HIVES Verified 04/21/22 14:16 Antibiotics) [SULFA (SULFONAMIDE ANTIBIOTICS)] sulfamethoxazole Allergy Unknown HIVES Verified 04/21/22 14:16 [From BACTRIM] trimethoprim [From BACTRIM] Allergy Unknown HIVES Verified 04/21/22 14:16 Active Medications: Current Medications Acetaminophen (Acetaminophen 325 Mg Tablet) 650 mg PO Q6H PRN PRN Reason: Pain, Mild (Pain Scale 1-3) Hydromorphone HCl (Hydromorphone Hcl 1 Mg/Ml Syringe) 0.5 mg IVPUSH Q4H PRN; Protocol PRN Reason: Pain, Severe (Pain Scale 7-10) Sodium Chloride (Ns) 1,000 mls @ 50 mls/hr IVCONT .Q20H ESTRELLA Lorazepam (Lorazepam 1 Mg Tablet) 1 mg PO BEDTIME PRN PRN Reason: Anxiety Melatonin (Melatonin 3 Mg Tablet) 6 mg PO BEDTIME PRN PRN Reason: Insomnia Sodium Chloride (0.9 % Sodium Chloride Flush 3 Ml Syringe) 3 ml IVFLUSH QSHIFT [facility] Home Medications Medication Instructions Recorded Confirmed Last Taken Type lorazepam 1 mg tablet 1 tab PO BEDTIME PRN Anxiety 04/21/22 05/08/22 Unknown History multivitamin 1 tab PO DAILY 05/08/22 05/08/22 Unknown History omeprazole 20 mg capsule,delayed 20 mg PO DAILY 05/08/22 05/08/22 Unknown History release Physical Exam Vital Signs and Narrative: Vital Signs: Last Vital Signs Temp 98.1 F 05/08/22 18:00 Pulse 110 H 05/08/22 21:44 Resp 24 H 05/08/22 21:44 BP 100/60 05/08/22 21:44 Pulse Ox 98 05/08/22 18:37 O2 Del Method 05/08/22 18:37 BMI result Body Mass Index 32.9 Results Labs CBC and Chem 7: 05/08/22 18:35 05/08/22 18:35 Labs: Laboratory Results - last 24 hr 05/08/22 05/08/22 05/08/22 18:08 18:18 18:33 MCV MCH MCHC RDW Plt Count MPV Immature Gran % (Auto) Neut % (Auto) Lymph % (Auto) [place] % (Auto) Eos % (Auto) Baso % (Auto) Lymph # (Auto) [place] # (Auto) Eos # (Auto) Baso # (Auto) Abs Immat Gran (auto) Absolute Neuts (auto) Absolute Nucleated RBC Nucleated RBC % (auto) PT INR APTT Anion Gap Estim Creat Clear Calc Estimated GFR Random Glucose Lactic Acid Lactic Acid F/U @ 2Hr Calcium Magnesium Total Bilirubin Direct Bilirubin AST ALT Alkaline Phosphatase Troponin I High Sens B-Natriuretic Peptide Total Protein Albumin Lipase Stool Occult Blood POSITIVE Influenza Type A (PCR) NEGATIVE Influenza Type B (PCR) NEGATIVE RSV RNA Qual (PCR) NEGATIVE SARS-CoV-2 RNA (RT-PCR) NEGATIVE Blood Type B Positive Antibody Screen NEGATIVE 05/08/22 05/08/22 05/08/22 18:34 18:34 18:35 MCV 77.9 L MCH 24.9 L MCHC 31.9 RDW 25.4 H Plt Count 326 D MPV 8.9 L Immature Gran % (Auto) 1.6 H Neut % (Auto) 83.2 H Lymph % (Auto) 11.4 L [place] % (Auto) 3.4 Eos % (Auto) 0.2 Baso % (Auto) 0.2 Lymph # (Auto) 1.9 [place] # (Auto) 0.6 Eos # (Auto) 0.0 Baso # (Auto) 0.0 Abs Immat Gran (auto) 0.26 H Absolute Neuts (auto) 13.6 H Absolute Nucleated RBC 0.030 H Nucleated RBC % (auto) 0.2 PT INR APTT Anion Gap Estim Creat Clear Calc Estimated GFR Random Glucose Lactic Acid 3.1 H* Lactic Acid F/U @ 2Hr Calcium Magnesium Total Bilirubin Direct Bilirubin AST ALT Alkaline Phosphatase Troponin I High Sens 9.0 B-Natriuretic Peptide 161 H Total Protein Albumin Lipase Stool Occult Blood Influenza Type A (PCR) Influenza Type B (PCR) RSV RNA Qual (PCR) SARS-CoV-2 RNA (RT-PCR) Blood Type Antibody Screen 05/08/22 05/08/22 05/08/22 18:35 18:35 20:59 MCV MCH MCHC RDW Plt Count MPV Immature Gran % (Auto) Neut % (Auto) Lymph % (Auto) [place] % (Auto) Eos % (Auto) Baso % (Auto) Lymph # (Auto) [place] # (Auto) Eos # (Auto) Baso # (Auto) Abs Immat Gran (auto) Absolute Neuts (auto) Absolute Nucleated RBC Nucleated RBC % (auto) PT 15.8 H INR 1.4 H APTT 19.1 L Anion Gap 13 Estim Creat Clear Calc 66.0 Estimated GFR > 60 Random Glucose 113 Lactic Acid Lactic Acid F/U @ 2Hr 1.4 Calcium 7.9 L D Magnesium 1.9 Total Bilirubin 0.8 Direct Bilirubin 0.5 AST 31 D ALT 22 Alkaline Phosphatase 77 Troponin I High Sens B-Natriuretic Peptide Total Protein 5.2 L Albumin 2.1 L Lipase 23 Stool Occult Blood Influenza Type A (PCR) Influenza Type B (PCR) RSV RNA Qual (PCR) SARS-CoV-2 RNA (RT-PCR) Blood Type Antibody Screen Imaging Radiologist's Impressions: Impressions Abdomen/Pelvis CT 05/08/22 19:38 IMPRESSION: Worsening appearance of the entire left colon with mucosal thickening and pericolonic inflammatory changes with increasing free pelvic fluid. Findings are consistent with worsening colitis. Fleischner guidelines were followed. Assessment and Plan (1) Colitis: Status: Acute (2) BRBPR (bright red blood per rectum): Status: Acute Plan 77-year-old female with a past medical history of hypertension, CHF-compensated, anxiety, recent admission to the hospital for colitis-concern for ischemia /infectious; discharged on p.o. antibiotics on 04/24/2022; presented back today to the hospital with a chief complaint of abdominal pain. Noted to have colitis/guaiac positive stool. Admitted for further management. Sepsis: In the setting of Colitis: Patient noted to be tachycardic, has lactic acidosis and leukocytosis. Patient noted to have guaiac-positive stool. Concern for ischemic colitis versus infectious/inflammatory. Patient was seen by Gastroenterology during the last admission-if not symptomatically improving planned for: Copy. Will re-consult Gastroenterology. Continue IV ceftriaxone and Flagyl. Stool studies including C diff. NPO Pain control H&H currently stable-will continue to monitor Pending labs-ESR, CRP, folate, B12, iron profile, JAVI panel. Hypokalemia: Patient potassium level on presentation noted to be 2.7. No EKG changes noted. Being repleted with IV and p.o. potassium. Magnesium level 1.9. Lactic acidosis: Improving with IV fluids. History of CHF: Patient reports he has history of CHF. But denies taking any Lasix. Noted trace pedal edema. No echocardiogram and records. Monitor for signs of fluid overload while being hydrated. History of hypertension: Will hold home antihypertensives. Patient blood pressure on the soft side. History of anxiety: Continue home Ativan p.r.n. DVT prophylaxis: SCD boots Code status: Full code Quality Stroke Does the patient have a stroke diagnosis?: No VTE Prior VTE?: No VTE Risk Level:: Medical - moderate - high VTE Device Contraindication: N/A - Device Ordered VTE Drug Contraindication: Treatment Not Indicated
[2022-05-08 22:51] LABS: C Reactive Protein 9.03 mg/dL (< or = 0.50)
[2022-05-08 22:56] VITALS: BP 103/58; PULSE 105; RESP 16; O2SAT 100
[2022-05-08] MEDS: Potassium Chloride Packet 20 MEQ PACKET 40 MEQ PO (22:57)
[2022-05-08 23:52] LABS: C Reactive Protein 7.61 mg/dL (< or = 0.50); Iron 36 mcg/dL (30-160); Percent Iron Saturation 43 % (15-50); Total Iron Binding Capacity 84 mcg/dL (228-428); Unsaturated Iron Binding 48 ug/dL
[2022-05-09 00:30] LABS: Erythrocyte Sedimentation Rate 10 MM/HR (0-20)
[2022-05-09] MEDS: KCl 40 mEq in 0.9 % Sodium Chl 40 MEQ/1,000 ML IV.SOLN 80 MEQ IVCONT (00:58)
--- NOTE | 2022-05-09 01:48 | PC.NURSE ---
potassium order reviewed with dr dee, Infuse the 2nd 10meq potassium and stop the 40meq ns at 80cchr till the 2nd potassium 10meq is infused, then restart the maitance infusion. reported to kevin Jackson
[2022-05-09] MEDS: Potassium Chloride/H20 10 MEQ/100 ML PIGGYBACK 100 MEQ IV (02:18)
[2022-05-09 02:51] VITALS: BP 95/54; PULSE 102; RESP 18; TEMP 36.4; O2SAT 97
[2022-05-09 03:22] LABS: Leukocytes Stool Qualitative MANY: >10/OIF (NEGATIVE)
[2022-05-09 03:35] LABS: CDiff Gene PCR NEGATIVE (Negative)
[2022-05-09] MEDS: metroNIDAZOLE/NS 500 MG/100 ML PIGGYBACK 100 MG IV ×3 (04:18→20:06)
[2022-05-09 05:37] LABS: Basophils Absolute Auto 0.1 X10*3/uL (0.0-0.2); Basophils Percent Auto 0.6 % (0-2); Eosinophils Percent Auto 0.1 % (0-4); Hematocrit 28.8 % (37.0-47.0); Hemoglobin 9.1 g/dl (12.0-16.0); Imm Gran Abs Auto 0.25 X10*3/uL (0.00-0.03); Imm Gran Pct Auto 1.5 % (0.0-0.4); LEFT SHIFT? 1; Lymphocytes Absolute Auto 2.6 X10*3/uL (1.2-4.9); Lymphocytes Percent Auto 15.1 % (20-40); Mean Corpuscular HGB Conc 31.6 g/dl (31.0-35.0); Mean Corpuscular Hemoglobin 24.9 pg (27.0-33.0); Mean Corpuscular Volume 78.7 fL (80.0-98.0); Mean Platelet Volume 9.1 fL (9.4-12.3); Monocytes Absolute Auto 0.6 X10*3/uL (0.1-1.2); Monocytes Percent Auto 3.5 % (2-11); Neutrophils Absolute Auto 13.7 x10*3/uL (2.0-8.3); Neutrophils Percent Auto 79.2 % (45-73); Platelet Count 302 X10*3/uL (160-400); Red Blood Count 3.66 X10*6/uL (4.20-5.50); Red Cell Distribution Width 26.6 % (11.0-16.0); White Blood Count 17.2 X10*3/uL (4.8-10.8)
[2022-05-09 05:55] LABS: Anion Gap 10 (12-20); Blood Urea Nitrogen 14 mg/dL (9-16); Calcium 7.2 mg/dL (8.4-10.2); Carbon Dioxide 26 mmol/L (22-29); Chloride 99 mmol/L (96-108); Creatinine Clr Calc Pharmacy 80.1; Estimated Glomerular Filt Rate > 60; Glucose Random 79 mg/dL (60-115); Potassium 3.4 mmol/L (3.3-5.1); Sodium 132 mmol/L (135-145)
[2022-05-09 05:57] LABS: MANUAL DIFF FLAG SCAN
[2022-05-09 06:14] LABS: SLIDE REVIEW VERIFIED
[2022-05-09 07:19] VITALS: BP 94/51; PULSE 90; RESP 18; TEMP 37.2; O2SAT 98
--- NOTE | 2022-05-09 08:30 | P.CNGI_ITS ---
History of Present Illness Data of Consult Service Date: 05/09/22 Requesting physician: Juan Egan Primary Care Provider: Jesse Sommer MD HPI Reason for consult: colitis 77-year-old female with a past medical history of hypertension, anxiety who I am seeing for assessment for anemia and colitis She was admitted 2-3 weeks ago with acute colitis and rectal bleeding, which had been preceded by constipation, and hence felt to have had ischemic colitis. She now comes back saying she was never 100% right after discharge, had been having severe cramps lasting from mins at a time, on and off in LLQ without radiation with small amounts of stool and rectal bleeding or clots. pain maybe releived by passing stool and gas. SHe had poor appetite and nausea but no vomiting, no fevers but some chills. Denies any chest pain or palpitations.? Denies any urinary symptoms. Imaging: CT with worsening left sided colitis and surrounding fluid and thickening of bowel Labs: microcytic anemia, raised wcc, raised lactate, low K, CRP 7, C diff neg this admission and last admission Review of Systems Review of Systems: Constitutional : poor appetite ENT/Mouth : No sore throat, No Rhinorrhea Eyes: No Swelling, No Redness Cardiovascular : No Chest Pain, No SOB, No Edema Respiratory : No Cough, No Sputum, No Wheezing Gastrointestinal : see HPI Genitourinary : NO Dysuria, No Urinary Frequency, No Hematuria, No Urgency Musculoskeletal : No joint pain, No Myalgias, No Joint Swelling Skin : No Skin Lesions, No rash Neuro : + Weakness, No Numbness, No Dizziness, No Headache Psych : No Anxiety/Panic, No Depression Heme/Lymph: No Bruising, No Lymphadenopathy Endocrine : No Polyuria, No Polydipsia All other systems reviewed and are negative. [facility] Past Medical History Medical History Hypertension Family History Pertinent family history: No FH of IBD Social History Social History Household Members: Spouse Housing: House Do you presently have visiting nurse or other home services: No Alcohol intake: never Patient Tobacco Use Status: Former Tobacco user Second Hand Smoke Exposure: No Use of substances other than those prescribed or required for medical reasons: No Have you been hit, kicked, punched, or otherwise hurt by someone within the past year? If so, by whom?: No Do you feel safe in your current relationship?: Yes Is there a partner from a previous relationship who is making you feel unsafe now?: No Are you made to feel afraid or neglected: No Advance Directives: No Advance Directives Information Provided: No Do you have thoughts of harming others: None Do you have a plan to hurt others: No Plan Recently lost weight without trying: No Nutrition Risks: No Nutritional Risk service: No Current occupational status: retired Current occupational exposures/hazards: No Meds Allergies Allergy/AdvReac Type Severity Reaction Status Date / Time Fish Containing Products Allergy Unknown HIVES TO Verified 04/21/22 14:16 COD Penicillins [PENICILLINS] Allergy Unknown UNKNOWN Verified 04/21/22 14:16 Sulfa (Sulfonamide Allergy Unknown HIVES Verified 04/21/22 14:16 Antibiotics) [SULFA (SULFONAMIDE ANTIBIOTICS)] sulfamethoxazole Allergy Unknown HIVES Verified 04/21/22 14:16 [From BACTRIM] trimethoprim [From BACTRIM] Allergy Unknown HIVES Verified 04/21/22 14:16 Active Medications: Current Medications Acetaminophen (Acetaminophen 325 Mg Tablet) 650 mg PO Q6H PRN PRN Reason: Pain, Mild (Pain Scale 1-3) Hydromorphone HCl (Hydromorphone Hcl 1 Mg/Ml Syringe) 0.5 mg IVPUSH Q4H PRN; Protocol PRN Reason: Pain, Severe (Pain Scale 7-10) Ceftriaxone Sodium 1 gm/ (Sodium Chloride) 50 mls @ 100 mls/hr IV Q24H [facility] Metronidazole (Flagyl) 500 mg in 100 mls @ 100 mls/hr IV Q8H [facility] Last Infusion: 05/09/22 05:24 Dose: Infused Potassium Chloride/Sodium Chloride () 40 meq in 1,000 mls @ 80 mls/hr IVCONT .[id number] [facility] Last Admin: 05/09/22 00:58 Dose: 80 mls/hr Lorazepam (Lorazepam 1 Mg Tablet) 1 mg PO BEDTIME PRN PRN Reason: Anxiety Sodium Chloride (0.9 % Sodium Chloride Flush 3 Ml Syringe) 3 ml IVFLUSH QSHIFT [facility] Last Admin: 05/09/22 01:03 Dose: Not Given Home Medications Medication Instructions Recorded Confirmed Last Taken Type lorazepam 1 mg tablet 1 tab PO BEDTIME PRN Anxiety 04/21/22 05/08/22 Unknown History multivitamin 1 tab PO DAILY 05/08/22 05/08/22 Unknown History omeprazole 20 mg capsule,delayed 20 mg PO DAILY 05/08/22 05/08/22 Unknown History release Physical Exam Vital Signs: Vital Signs: Last Vital Signs Temp 99.0 F 05/09/22 07:19 Pulse 90 05/09/22 07:19 Resp 18 05/09/22 07:19 BP 94/51 L 05/09/22 07:19 Pulse Ox 98 05/09/22 07:19 O2 Del Method 05/09/22 07:19 O2 Flow Rate 1 05/09/22 07:19 BMI result Body Mass Index 32.9 Const: General: comfortable and well developed Nutritional Appearance: well nourished Orientation/consciousness: patient oriented x3 Limitations: no limitations Resp: Effort & Inspection: normal respiratory effort, no audible wheezes, no cough and no respiratory distress Auscultation: clear to auscultation bilaterally GI: Inspection: Yes normal to inspection Palpation (GI): Soft to palpation, Tenderness to palpation present (GI) in the LLQ and in the LUQ; with no rebound tenderness, no guarding, not rigid, hepatosplenomegaly present and no masses Percussion: Yes normal to percussion Auscultation: normal bowel sounds Rectal Exam - Female: deferred Skin: General skin exam: no rashes or lesions noted Neuro: General: patient oriented x3 Extrem: General: No clubbing, No cyanosis and Yes edema Psych: Appearance: grossly normal Results Labs CBC & Chem 7: 05/09/22 04:51 05/09/22 04:51 Labs: Short CBC 05/08/22 05/09/22 Range/Units 18:35 04:51 WBC 16.3 H 17.2 H (4.8-10.8) X10*3/uL Hgb 9.9 L 9.1 L (12.0-16.0) g/dl Hct 31.0 L 28.8 L (37.0-47.0) % Plt Count 326 D 302 (160-400) X10*3/uL BMP 05/08/22 05/09/22 18:35 04:51 Sodium 131 L 132 L Potassium 2.7 L D 3.4 D Chloride 94 L 99 Carbon Dioxide 27 26 BUN 15 14 Creatinine 0.68 0.56 Calcium 7.9 L D 7.2 L D Liver Function 05/08/22 Range/Units 18:35 Total Bilirubin 0.8 (0.0-1.0) mg/dL Direct Bilirubin 0.5 (0.0-0.5) mg/dL AST 31 D (5-31) U/L ALT 22 (0-31) U/L Alkaline Phosphatase 77 (39-117) U/L Albumin 2.1 L (3.5-5.0) g/dL Imaging CT scan - abdomen: Attestation: I personally reviewed and interpreted this imaging study as follows: My impression: inflammed left sided colon, free fluid appreciated Assessment and Plan (1) Colitis: Status: Acute (2) Anemia: Status: Acute Plan 1/ Persistent colitis, most likely ischemic etiology, ddx; UC, less likely infectious. 50% of ischemic colitis resolves by itself but up to 20% can be persistent, PLAN: 1/ Cont with ABX 2/ can add mesalamine and see if helps 3/ If stabilizes may consider unprepped limited sigmoidoscopy for bx for dx purposes 4/ maintain BP and avoid hypotension 5/ surgical consult in case of decompensation, toxic megacolon, perforation 6/ may need CTA if concerns for vascular compromise, keep on monitor and make sure no a-fib lurking in background Procedures Date of Service Date of Service: 05/09/22
--- NOTE | 2022-05-09 09:16 | MHC.CM.PN ---
PATIENT LIVES WITH HER SPOUSE HCP IS ON FILE AND VERIFIED SHE IS A READMIT AND DISCHARGED HOME WITH NO SERVICES. MODERNA VACCINATED X 4 AND INFORMATION IS FOUND IN EXPANSE. CASE MANAGEMENT FOLLOWING. IMM 05/09 IN CHART
--- NOTE | 2022-05-09 09:42 | HO.PM.IMPN ---
Subjective Subjective Date of Service: 05/09/22 Interval History: cc: abd pain, brbpr interval history: still with pain Cardiovascular Cardiovascular: Reports no additional cardiovascular complaints Respiratory Respiratory: Reports no additional respiratory complaints Physical Exam Vital Signs: Vital Signs: Last Vital Signs Temp 99.0 F 05/09/22 07:19 Pulse 90 05/09/22 07:19 Resp 18 05/09/22 07:19 BP 94/51 L 05/09/22 07:19 Pulse Ox 98 05/09/22 07:19 O2 Del Method 05/09/22 07:19 O2 Flow Rate 1 05/09/22 07:19 BMI result Body Mass Index 32.9 General: AO X 3, no acute distress Resp: CTA bilateral, no accessory muscles used CVS: S1,S2,RRR, 2+ edema GI: soft, tender, distended Neuro: motor grossly intact, alert Psych: appropriate affect, appropriate insight Objective Data Active Medications Acetaminophen (Acetaminophen 325 Mg Tablet) 650 mg PO Q6H PRN PRN Reason: Pain, Mild (Pain Scale 1-3) Hydromorphone HCl (Hydromorphone Hcl 1 Mg/Ml Syringe) 0.5 mg IVPUSH Q4H PRN; Protocol PRN Reason: Pain, Severe (Pain Scale 7-10) Ceftriaxone Sodium 1 gm/ (Sodium Chloride) 50 mls @ 100 mls/hr IV Q24H [facility] Metronidazole (Flagyl) 500 mg in 100 mls @ 100 mls/hr IV Q8H [facility] Last Infusion: 05/09/22 05:24 Dose: 0 mls/hr Documented By: LUIS Lorazepam (Lorazepam 1 Mg Tablet) 1 mg PO BEDTIME PRN PRN Reason: Anxiety Sodium Chloride (0.9 % Sodium Chloride Flush 3 Ml Syringe) 3 ml IVFLUSH QSHIFT [facility] Last Admin: 05/09/22 08:30 Dose: Not Given Documented By: SHEA Non-Admin Reason: IV Running Labs CBC & Chem 7: 05/09/22 04:51 05/09/22 04:51 Labs: Laboratory Results - last 24 hr 05/08/22 05/08/22 05/08/22 18:08 18:18 18:33 MCV MCH MCHC RDW Plt Count MPV Immature Gran % (Auto) Neut % (Auto) Lymph % (Auto) [place] % (Auto) Eos % (Auto) Baso % (Auto) Lymph # (Auto) [place] # (Auto) Eos # (Auto) Baso # (Auto) Abs Immat Gran (auto) Absolute Neuts (auto) Absolute Nucleated RBC Nucleated RBC % (auto) Smear Tech's Comments ESR PT INR APTT Anion Gap Estim Creat Clear Calc Estimated GFR Random Glucose Lactic Acid Lactic Acid F/U @ 2Hr Calcium Magnesium Iron TIBC % Saturation Unsat Iron Binding Total Bilirubin Direct Bilirubin AST ALT Alkaline Phosphatase Troponin I High Sens C-Reactive Protein B-Natriuretic Peptide Total Protein Albumin Lipase Vitamin B12 Folate Stool Occult Blood POSITIVE Stool Leukocytes, Qual JAVI Screen JAVI Titer JAVI Titer 2 JAVI Titer 3 JAVI Pattern JAVI Pattern 2 JAVI Pattern 3 C. difficile Tox B Gene Influenza Type A (PCR) NEGATIVE Influenza Type B (PCR) NEGATIVE RSV RNA Qual (PCR) NEGATIVE SARS-CoV-2 RNA (RT-PCR) NEGATIVE Blood Type B Positive Antibody Screen NEGATIVE 05/08/22 05/08/22 05/08/22 18:34 18:34 18:35 MCV 77.9 L MCH 24.9 L MCHC 31.9 RDW 25.4 H Plt Count 326 D MPV 8.9 L Immature Gran % (Auto) 1.6 H Neut % (Auto) 83.2 H Lymph % (Auto) 11.4 L [place] % (Auto) 3.4 Eos % (Auto) 0.2 Baso % (Auto) 0.2 Lymph # (Auto) 1.9 [place] # (Auto) 0.6 Eos # (Auto) 0.0 Baso # (Auto) 0.0 Abs Immat Gran (auto) 0.26 H Absolute Neuts (auto) 13.6 H Absolute Nucleated RBC 0.030 H Nucleated RBC % (auto) 0.2 Smear Tech's Comments ESR PT INR APTT Anion Gap Estim Creat Clear Calc Estimated GFR Random Glucose Lactic Acid 3.1 H* Lactic Acid F/U @ 2Hr Calcium Magnesium Iron TIBC % Saturation Unsat Iron Binding Total Bilirubin Direct Bilirubin AST ALT Alkaline Phosphatase Troponin I High Sens 9.0 C-Reactive Protein B-Natriuretic Peptide 161 H Total Protein Albumin Lipase Vitamin B12 Folate Stool Occult Blood Stool Leukocytes, Qual JAVI Screen JAVI Titer JAVI Titer 2 JAVI Titer 3 JAVI Pattern JAVI Pattern 2 JAVI Pattern 3 C. difficile Tox B Gene Influenza Type A (PCR) Influenza Type B (PCR) RSV RNA Qual (PCR) SARS-CoV-2 RNA (RT-PCR) Blood Type Antibody Screen 05/08/22 05/08/22 05/08/22 18:35 18:35 20:59 MCV MCH MCHC RDW Plt Count MPV Immature Gran % (Auto) Neut % (Auto) Lymph % (Auto) [place] % (Auto) Eos % (Auto) Baso % (Auto) Lymph # (Auto) [place] # (Auto) Eos # (Auto) Baso # (Auto) Abs Immat Gran (auto) Absolute Neuts (auto) Absolute Nucleated RBC Nucleated RBC % (auto) Smear Tech's Comments ESR PT 15.8 H INR 1.4 H APTT 19.1 L Anion Gap 13 Estim Creat Clear Calc 66.0 Estimated GFR > 60 Random Glucose 113 Lactic Acid Lactic Acid F/U @ 2Hr 1.4 Calcium 7.9 L D Magnesium 1.9 Iron TIBC % Saturation Unsat Iron Binding Total Bilirubin 0.8 Direct Bilirubin 0.5 AST 31 D ALT 22 Alkaline Phosphatase 77 Troponin I High Sens C-Reactive Protein 9.03 H B-Natriuretic Peptide Total Protein 5.2 L Albumin 2.1 L Lipase 23 Vitamin B12 Folate Stool Occult Blood Stool Leukocytes, Qual JAVI Screen JAVI Titer JAVI Titer 2 JAVI Titer 3 JAVI Pattern JAVI Pattern 2 JAVI Pattern 3 C. difficile Tox B Gene Influenza Type A (PCR) Influenza Type B (PCR) RSV RNA Qual (PCR) SARS-CoV-2 RNA (RT-PCR) Blood Type Antibody Screen 05/08/22 05/08/22 05/08/22 23:26 23:26 23:26 MCV MCH MCHC RDW Plt Count MPV Immature Gran % (Auto) Neut % (Auto) Lymph % (Auto) [place] % (Auto) Eos % (Auto) Baso % (Auto) Lymph # (Auto) [place] # (Auto) Eos # (Auto) Baso # (Auto) Abs Immat Gran (auto) Absolute Neuts (auto) Absolute Nucleated RBC Nucleated RBC % (auto) Smear Tech's Comments ESR 10 PT INR APTT Anion Gap Estim Creat Clear Calc Estimated GFR Random Glucose Lactic Acid Lactic Acid F/U @ 2Hr Calcium Magnesium Iron 36 TIBC 84 L % Saturation 43 Unsat Iron Binding 48 Total Bilirubin Direct Bilirubin AST ALT Alkaline Phosphatase Troponin I High Sens C-Reactive Protein 7.61 H B-Natriuretic Peptide Total Protein Albumin Lipase Vitamin B12 Cancelled Folate Cancelled Stool Occult Blood Stool Leukocytes, Qual JAVI Screen JAVI Titer JAVI Titer 2 JAVI Titer 3 JAVI Pattern JAVI Pattern 2 JAVI Pattern 3 C. difficile Tox B Gene Influenza Type A (PCR) Influenza Type B (PCR) RSV RNA Qual (PCR) SARS-CoV-2 RNA (RT-PCR) Blood Type Antibody Screen 05/08/22 05/09/22 05/09/22 23:26 02:30 02:30 MCV MCH MCHC RDW Plt Count MPV Immature Gran % (Auto) Neut % (Auto) Lymph % (Auto) [place] % (Auto) Eos % (Auto) Baso % (Auto) Lymph # (Auto) [place] # (Auto) Eos # (Auto) Baso # (Auto) Abs Immat Gran (auto) Absolute Neuts (auto) Absolute Nucleated RBC Nucleated RBC % (auto) Smear Tech's Comments ESR PT INR APTT Anion Gap Estim Creat Clear Calc Estimated GFR Random Glucose Lactic Acid Lactic Acid F/U @ 2Hr Calcium Magnesium Iron TIBC % Saturation Unsat Iron Binding Total Bilirubin Direct Bilirubin AST ALT Alkaline Phosphatase Troponin I High Sens C-Reactive Protein B-Natriuretic Peptide Total Protein Albumin Lipase Vitamin B12 Folate Stool Occult Blood Stool Leukocytes, Qual MANY: >10/OIF JAVI Screen Cancelled JAVI Titer Cancelled JAVI Titer 2 Cancelled JAVI Titer 3 Cancelled JAVI Pattern Cancelled JAVI Pattern 2 Cancelled JAVI Pattern 3 Cancelled C. difficile Tox B Gene NEGATIVE Influenza Type A (PCR) Influenza Type B (PCR) RSV RNA Qual (PCR) SARS-CoV-2 RNA (RT-PCR) Blood Type Antibody Screen 05/09/22 05/09/22 04:51 04:51 MCV 78.7 L MCH 24.9 L MCHC 31.6 RDW 26.6 H Plt Count 302 MPV 9.1 L Immature Gran % (Auto) 1.5 H Neut % (Auto) 79.2 H Lymph % (Auto) 15.1 L [place] % (Auto) 3.5 Eos % (Auto) 0.1 Baso % (Auto) 0.6 Lymph # (Auto) 2.6 [place] # (Auto) 0.6 Eos # (Auto) 0.0 Baso # (Auto) 0.1 Abs Immat Gran (auto) 0.25 H Absolute Neuts (auto) 13.7 H Absolute Nucleated RBC 0.000 Nucleated RBC % (auto) 0.0 Smear Tech's Comments VERIFIED ESR PT INR APTT Anion Gap 10 L Estim Creat Clear Calc 80.1 Estimated GFR > 60 Random Glucose 79 Lactic Acid Lactic Acid F/U @ 2Hr Calcium 7.2 L D Magnesium Iron TIBC % Saturation Unsat Iron Binding Total Bilirubin Direct Bilirubin AST ALT Alkaline Phosphatase Troponin I High Sens C-Reactive Protein B-Natriuretic Peptide Total Protein Albumin Lipase Vitamin B12 Folate Stool Occult Blood Stool Leukocytes, Qual JAVI Screen JAVI Titer JAVI Titer 2 JAVI Titer 3 JAVI Pattern JAVI Pattern 2 JAVI Pattern 3 C. difficile Tox B Gene Influenza Type A (PCR) Influenza Type B (PCR) RSV RNA Qual (PCR) SARS-CoV-2 RNA (RT-PCR) Blood Type Antibody Screen Assessment and Plan (1) Colitis: Status: Acute Plan 77F presented with abd pain, brbpr severe sepsis present on admission due to likely worsening ischemic colitis complicated by bacterial superinfection rocephin, flagyl iv hydration GI and surgery eval follow up cultures chronic anemia inflammatory and chronic blood loss from colitis edema/anasarca due to GI protein wasting and chronic inflammation, no signs of acute CHF anxiety - ativan dvt prophylaxis - mechanical due to gi bleeding full code reason for continued hospitalization: severe pain, not tolerating po Quality Stroke Does the patient have a stroke diagnosis?: No VTE Prior VTE?: No VTE Risk Level:: Medical - moderate - high VTE Device Contraindication: N/A - Device Ordered VTE Drug Contraindication: Treatment Not Indicated
--- NOTE | 2022-05-09 11:05 | PM.CNGS ---
History of Present Illness Consult details Consult date: 05/09/22 Reason for consult: abdominal pain Requesting physician: Iggy Christianson Narrative: 77-year-old female patient presenting with complaints of abdominal pain in the left upper and lower quadrants with associated diarrhea and occasionally bloody stool. She was previously admitted last week with similar symptoms which subsequently resolved. This was determined to be probable ischemic colitis. She reported having minimal appetite while at home because foods adjusted not taste right. She felt this may be due to the antibiotic she was on. The pain subsequently returned and she subsequently presented back to the emergency department. In the ED she was noted to be tender in the left abdomen without peritoneal signs. Laboratories revealed a WBC of 16.3 and lactate of 3.1. CT of the abdomen and pelvis evaluation of the GI tract revealed continued presence of colitis involving the distal transverse colon, splenic flexure and descending colon and rectosigmoid. This is the same distribution as previously noted but is now increased pericolonic inflammation. No pneumatosis and no free air is identified. There is increased amount of free intraperitoneal fluid in the pelvis compared to the prior examination. The remaining small and large bowel is unremarkable. The appendix is normal. The patient continues to report loose stool associated with crampy abdominal pain. The pain does seem to improve after passing the stool. She reports a prior history of cholecystectomy and ERCP but denies previous intestinal surgeries. Review of Systems Review of Systems: Yes all other systems are reviewed and are negative Constitutional: Constitutional: Denies chills, Denies fever(s), Reports malaise and Reports weakness Cardiovascular: Cardiovascular: Reports pedal edema Gastrointestinal: Gastrointestinal: Reports as per HPI, Reports abdominal pain, Reports tenesmus, Reports GI cramping and Reports loose stools Neurologic: Reports weakness PMFSH Past Medical History Medical History Hypertension Social History Social History Household Members: Spouse Housing: House Do you presently have visiting nurse or other home services: No Alcohol intake: never Patient Tobacco Use Status: Former Tobacco user Second Hand Smoke Exposure: No Use of substances other than those prescribed or required for medical reasons: No Have you been hit, kicked, punched, or otherwise hurt by someone within the past year? If so, by whom?: No Do you feel safe in your current relationship?: Yes Is there a partner from a previous relationship who is making you feel unsafe now?: No Are you made to feel afraid or neglected: No Advance Directives: No Advance Directives Information Provided: No Do you have thoughts of harming others: None Do you have a plan to hurt others: No Plan Recently lost weight without trying: No Nutrition Risks: No Nutritional Risk service: No Current occupational status: retired Current occupational exposures/hazards: No Meds Allergies Allergy/AdvReac Type Severity Reaction Status Date / Time Fish Containing Products Allergy Unknown HIVES TO Verified 04/21/22 14:16 COD Penicillins [PENICILLINS] Allergy Unknown UNKNOWN Verified 04/21/22 14:16 Sulfa (Sulfonamide Allergy Unknown HIVES Verified 04/21/22 14:16 Antibiotics) [SULFA (SULFONAMIDE ANTIBIOTICS)] sulfamethoxazole Allergy Unknown HIVES Verified 04/21/22 14:16 [From BACTRIM] trimethoprim [From BACTRIM] Allergy Unknown HIVES Verified 04/21/22 14:16 Active Medications: Current Medications Acetaminophen (Acetaminophen 325 Mg Tablet) 650 mg PO Q6H PRN PRN Reason: Pain, Mild (Pain Scale 1-3) Hydromorphone HCl (Hydromorphone Hcl 1 Mg/Ml Syringe) 0.5 mg IVPUSH Q4H PRN; Protocol PRN Reason: Pain, Severe (Pain Scale 7-10) Ceftriaxone Sodium 1 gm/ (Sodium Chloride) 50 mls @ 100 mls/hr IV Q24H [facility] Metronidazole (Flagyl) 500 mg in 100 mls @ 100 mls/hr IV Q8H [facility] Last Infusion: 05/09/22 05:24 Dose: Infused Lactated Ringer's (Lr) 1,000 mls @ 100 mls/hr IVCONT .Q10H [facility] Lorazepam (Lorazepam 1 Mg Tablet) 1 mg PO BEDTIME PRN PRN Reason: Anxiety Sodium Chloride (0.9 % Sodium Chloride Flush 3 Ml Syringe) 3 ml IVFLUSH QSHIFT [facility] Last Admin: 05/09/22 08:30 Dose: Not Given Home Medications Medication Instructions Recorded Confirmed Last Taken Type lorazepam 1 mg tablet 1 tab PO BEDTIME PRN Anxiety 04/21/22 05/08/22 Unknown History multivitamin 1 tab PO DAILY 05/08/22 05/08/22 Unknown History omeprazole 20 mg capsule,delayed 20 mg PO DAILY 05/08/22 05/08/22 Unknown History release Physical Exam Vital Signs: Vital Signs: Last Vital Signs Temp 99.0 F 05/09/22 07:19 Pulse 90 05/09/22 07:19 Resp 18 05/09/22 07:19 BP 94/51 L 05/09/22 07:19 Pulse Ox 98 05/09/22 07:19 O2 Del Method 05/09/22 07:19 O2 Flow Rate 1 05/09/22 07:19 BMI result Body Mass Index 32.9 Const: General: comfortable and well developed Nutritional Appearance: well nourished Orientation/consciousness: patient oriented x3 Limitations: no limitations Resp: Effort & Inspection: normal respiratory effort, no audible wheezes, no cough and no respiratory distress Auscultation: clear to auscultation bilaterally GI: Inspection: Yes normal to inspection Palpation (GI): Soft to palpation, Tenderness to palpation present (GI) in the LLQ and in the LUQ; with no rebound tenderness, no guarding, not rigid, hepatosplenomegaly present and no masses Percussion: Yes normal to percussion Auscultation: normal bowel sounds Rectal Exam - Female: deferred Skin: General skin exam: no rashes or lesions noted Neuro: General: patient oriented x3 Extrem: General: No clubbing, No cyanosis and Yes edema Results Labs Result diagrams: 05/09/22 04:51 05/09/22 04:51 Labs: Abnormal lab results 05/08/22 05/08/22 05/08/22 Range/Units 18:34 18:34 18:35 WBC 16.3 H (4.8-10.8) X10*3/uL RBC 3.98 L (4.20-5.50) X10*6/uL Hgb 9.9 L (12.0-16.0) g/dl Hct 31.0 L (37.0-47.0) % MCV 77.9 L (80.0-98.0) fL MCH 24.9 L (27.0-33.0) pg RDW 25.4 H (11.0-16.0) % MPV 8.9 L (9.4-12.3) fL Immature Gran % (Auto) 1.6 H (0.0-0.4) % Neut % (Auto) 83.2 H (45-73) % Lymph % (Auto) 11.4 L (20-40) % Abs Immat Gran (auto) 0.26 H (0.00-0.03) X10*3/uL Absolute Neuts (auto) 13.6 H (2.0-8.3) x10*3/uL Absolute Nucleated RBC 0.030 H (0.0-0.012) X10*3/uL PT (9.9-13.0) SEC INR (0.9-1.1) APTT (24.1-38.0) SEC Sodium (135-145) mmol/L Potassium (3.3-5.1) mmol/L Chloride (96-108) mmol/L Anion Gap (12-20) Lactic Acid 3.1 H* (0.5-2.0) mmol/L Calcium (8.4-10.2) mg/dL TIBC (228-428) mcg/dL C-Reactive Protein (< or = 0.50) mg/dL B-Natriuretic Peptide 161 H (<100) pg/mL Total Protein (6.5-8.0) g/dL Albumin (3.5-5.0) g/dL 05/08/22 05/08/22 05/08/22 Range/Units 18:35 18:35 23:26 WBC (4.8-10.8) X10*3/uL RBC (4.20-5.50) X10*6/uL Hgb (12.0-16.0) g/dl Hct (37.0-47.0) % MCV (80.0-98.0) fL MCH (27.0-33.0) pg RDW (11.0-16.0) % MPV (9.4-12.3) fL Immature Gran % (Auto) (0.0-0.4) % Neut % (Auto) (45-73) % Lymph % (Auto) (20-40) % Abs Immat Gran (auto) (0.00-0.03) X10*3/uL Absolute Neuts (auto) (2.0-8.3) x10*3/uL Absolute Nucleated RBC (0.0-0.012) X10*3/uL PT 15.8 H (9.9-13.0) SEC INR 1.4 H (0.9-1.1) APTT 19.1 L (24.1-38.0) SEC Sodium 131 L (135-145) mmol/L Potassium 2.7 L D (3.3-5.1) mmol/L Chloride 94 L (96-108) mmol/L Anion Gap (12-20) Lactic Acid (0.5-2.0) mmol/L Calcium 7.9 L D (8.4-10.2) mg/dL TIBC 84 L (228-428) mcg/dL C-Reactive Protein 9.03 H 7.61 H (< or = 0.50) mg/dL B-Natriuretic Peptide (<100) pg/mL Total Protein 5.2 L (6.5-8.0) g/dL Albumin 2.1 L (3.5-5.0) g/dL 05/09/22 05/09/22 Range/Units 04:51 04:51 WBC 17.2 H (4.8-10.8) X10*3/uL RBC 3.66 L (4.20-5.50) X10*6/uL Hgb 9.1 L (12.0-16.0) g/dl Hct 28.8 L (37.0-47.0) % MCV 78.7 L (80.0-98.0) fL MCH 24.9 L (27.0-33.0) pg RDW 26.6 H (11.0-16.0) % MPV 9.1 L (9.4-12.3) fL Immature Gran % (Auto) 1.5 H (0.0-0.4) % Neut % (Auto) 79.2 H (45-73) % Lymph % (Auto) 15.1 L (20-40) % Abs Immat Gran (auto) 0.25 H (0.00-0.03) X10*3/uL Absolute Neuts (auto) 13.7 H (2.0-8.3) x10*3/uL Absolute Nucleated RBC (0.0-0.012) X10*3/uL PT (9.9-13.0) SEC INR (0.9-1.1) APTT (24.1-38.0) SEC Sodium 132 L (135-145) mmol/L Potassium (3.3-5.1) mmol/L Chloride (96-108) mmol/L Anion Gap 10 L (12-20) Lactic Acid (0.5-2.0) mmol/L Calcium 7.2 L D (8.4-10.2) mg/dL TIBC (228-428) mcg/dL C-Reactive Protein (< or = 0.50) mg/dL B-Natriuretic Peptide (<100) pg/mL Total Protein (6.5-8.0) g/dL Albumin (3.5-5.0) g/dL Short CBC 05/08/22 05/09/22 Range/Units 18:35 04:51 WBC 16.3 H 17.2 H (4.8-10.8) X10*3/uL Hgb 9.9 L 9.1 L (12.0-16.0) g/dl Hct 31.0 L 28.8 L (37.0-47.0) % Plt Count 326 D 302 (160-400) X10*3/uL BMP 05/08/22 05/09/22 18:35 04:51 Sodium 131 L 132 L Potassium 2.7 L D 3.4 D Chloride 94 L 99 Carbon Dioxide 27 26 BUN 15 14 Creatinine 0.68 0.56 Calcium 7.9 L D 7.2 L D Liver Function 05/08/22 Range/Units 18:35 Total Bilirubin 0.8 (0.0-1.0) mg/dL Direct Bilirubin 0.5 (0.0-0.5) mg/dL AST 31 D (5-31) U/L ALT 22 (0-31) U/L Alkaline Phosphatase 77 (39-117) U/L Albumin 2.1 L (3.5-5.0) g/dL All other labs normal. Assessment and Plan (1) Colitis: Status: Acute (2) BRBPR (bright red blood per rectum): Status: Acute Plan 77-year-old female patient presenting with evidence of colitis involving the left colon at approximately the watershed area which is suspicious for ischemic colitis. Patient is improved today with decreased abdominal pain but continue cramping removed stool. CT of the abdomen and pelvis was reviewed an area of thickening noted in the left colon. There is no evidence of pneumatosis or free air. On examination the patient does have tenderness in the left lower quadrant left upper quadrant. Her blood pressure is on the soft side. Would not recommend surgical intervention at this time but would recommend continued supportive care, hydration as tolerated. I will follow along during her hospital course. Procedures Date of Service Date of Service: 05/09/22
[2022-05-09] MEDS: Potassium Chloride ER 20 MEQ TAB.ER.PRT 40 MEQ PO (11:17)
[2022-05-09] MEDS: Lactated Ringers 1,000 ML 100 ML IVCONT ×2 (11:22→22:59)
[2022-05-09 11:23] VITALS: BP 100/56; PULSE 89; RESP 18; TEMP 36.6; O2SAT 92
[2022-05-09] MEDS: Mesalamine 400 MG CAP.DRTAB. 1600 MG PO ×3 (14:33→21:52)
[2022-05-09 15:52] VITALS: BP 95/63; PULSE 93; RESP 17; TEMP 36.4; O2SAT 95
[2022-05-09] MEDS: cefTRIAXone sodium 1 GM in 0.9 % Sodium Chloride 50 ML IV (19:30)
[2022-05-09 19:54] VITALS: BP 101/56; PULSE 104; RESP 18; TEMP 36.4; O2SAT 97
[2022-05-09 23:35] VITALS: BP 100/62; PULSE 103; RESP 18; TEMP 36.5; O2SAT 97
[2022-05-10] MEDS: metroNIDAZOLE/NS 500 MG/100 ML PIGGYBACK 100 MG IV ×3 (03:31→20:22)
[2022-05-10 03:57] VITALS: BP 95/54; PULSE 98; RESP 18; TEMP 36.3; O2SAT 97
[2022-05-10 06:54] LABS: Hematocrit 30.3 % (37.0-47.0); Hemoglobin 9.4 g/dl (12.0-16.0); Mean Corpuscular Hemoglobin 24.9 pg (27.0-33.0); Mean Corpuscular Volume 80.2 fL (80.0-98.0); NRBC Pct Auto 0.1 /100WBC (0.0-0.2); Platelet Count 276 X10*3/uL (160-400); Red Blood Count 3.78 X10*6/uL (4.20-5.50); Red Cell Distribution Width 27.6 % (11.0-16.0)
[2022-05-10 07:24] LABS: C Reactive Protein 7.15 mg/dL (< or = 0.50)
[2022-05-10 07:25] LABS: Anion Gap 11 (12-20); Blood Urea Nitrogen 12 mg/dL (9-16); Calcium 7.3 mg/dL (8.4-10.2); Carbon Dioxide 26 mmol/L (22-29); Chloride 100 mmol/L (96-108); Creatinine Clr Calc Pharmacy 78.6; Estimated Glomerular Filt Rate > 60; Glucose Fasting 69 mg/dL (60-99); Sodium 133 mmol/L (135-145)
[2022-05-10 07:47] VITALS: BP 100/59; PULSE 107; RESP 18; TEMP 36.7; O2SAT 95
--- NOTE | 2022-05-10 08:08 | P.PNGS_ITS ---
Subjective Subjective Date of Service: 05/10/22 Interval history: Patient reports decreased abdominal pain this morning continues to have bowel movements every 4 hours. Physical Exam Vital Signs: Vital Signs: Last Vital Signs Temp 98.0 F 05/10/22 07:47 Pulse 107 H 05/10/22 07:47 Resp 18 05/10/22 07:47 BP 100/59 L 05/10/22 07:47 Pulse Ox 95 05/10/22 07:47 O2 Del Method 05/10/22 07:47 O2 Flow Rate 1 05/09/22 19:54 BMI result Body Mass Index 32.9 Const: General: comfortable and no acute distress Nutritional Appearance: well nourished Orientation/consciousness: patient oriented x3 Limitations: no limitations Resp: Effort & Inspection: normal respiratory effort GI: Palpation (GI): Soft to palpation, nontender, no guarding, not rigid and No Rebound tenderness present Percussion: Yes normal to percussion Auscultation: normal bowel sounds Neuro: General: patient oriented x3 Objective Data Active Medications Acetaminophen (Acetaminophen 325 Mg Tablet) 650 mg PO Q6H PRN PRN Reason: Pain, Mild (Pain Scale 1-3) Hydromorphone HCl (Hydromorphone Hcl 1 Mg/Ml Syringe) 0.5 mg IVPUSH Q4H PRN; Protocol PRN Reason: Pain, Severe (Pain Scale 7-10) Ceftriaxone Sodium 1 gm/ (Sodium Chloride) 50 mls @ 100 mls/hr IV Q24H [facility] Last Infusion: 05/09/22 20:04 Dose: 0 mls/hr Documented By: LUIS Metronidazole (Flagyl) 500 mg in 100 mls @ 100 mls/hr IV Q8H [facility] Last Infusion: 05/10/22 04:39 Dose: 0 mls/hr Documented By: LUIS Lactated Ringer's (Lr) 1,000 mls @ 100 mls/hr IVCONT .Q10H [facility] Last Admin: 05/10/22 06:51 Dose: Not Given Documented By: SHEA Non-Admin Reason: IV Running Lorazepam (Lorazepam 1 Mg Tablet) 1 mg PO BEDTIME PRN PRN Reason: Anxiety Mesalamine (Mesalamine 400 Mg Cap.Drtab.) 1,600 mg PO QID [facility] Last Admin: 05/09/22 21:52 Dose: 1,600 mg Documented By: LUIS Sodium Chloride (0.9 % Sodium Chloride Flush 3 Ml Syringe) 3 ml IVFLUSH QSHIFT [facility] Last Admin: 05/10/22 06:51 Dose: Not Given Documented By: SHEA Non-Admin Reason: IV Running Labs CBC & Chem 7: 05/10/22 06:06 05/10/22 06:06 Labs: Laboratory Results - last 24 hr 05/10/22 05/10/22 05/10/22 06:06 06:06 06:06 MCV 80.2 MCH 24.9 L MCHC 31.0 RDW 27.6 H Plt Count 276 MPV 9.0 L Absolute Nucleated RBC 0.020 H Nucleated RBC % (auto) 0.1 Anion Gap 11 L Estim Creat Clear Calc 78.6 Estimated GFR > 60 Fasting Glucose 69 Calcium 7.3 L C-Reactive Protein 7.15 H Microbiology Microbiology Results: Microbiology 05/09/22 02:30 Stool Culture - Preliminary Stool Normal so far. 05/08/22 18:33 Blood Culture - Preliminary Blood - Venous No growth after 24 hours. 05/08/22 18:33 Blood Culture - Preliminary Blood - Venous No growth after 24 hours. Procedures Date of Service Date of Service: 05/10/22 Progress Note: A&P Assessment and plan (1) Colitis: Status: Acute (2) BRBPR (bright red blood per rectum): Status: Acute Plan Patient reports decreased abdominal pain however laboratories revealed increased WBC up to 19 K today. H and H is stable. C diff toxin negative. Ischemic colitis versus infectious colitis or combination of both. May need to repeat CT abdomen and pelvis to evaluate for abscess. Time Spent With Patient Time: Total time spent is greater than 50% in coordination of care (as documented) at patient's floor/unit and/or counseling patient: Quality Stroke Does the patient have a stroke diagnosis?: No VTE Prior VTE?: No VTE Risk Level:: Medical - moderate - high VTE Device Contraindication: N/A - Device Ordered VTE Drug Contraindication: Treatment Not Indicated
[2022-05-10] MEDS: Mesalamine 400 MG CAP.DRTAB. 1600 MG PO ×4 (08:32→19:43)
--- NOTE | 2022-05-10 09:54 | P.PNIM_ITS ---
Subjective Subjective Date of Service: 05/10/22 Interval History: cc: abd pain interval history: no appetite, somewhat better today Cardiovascular Cardiovascular: Reports no additional cardiovascular complaints Respiratory Respiratory: Reports no additional respiratory complaints Physical Exam Vital Signs: Vital Signs: Last Vital Signs Temp 98.0 F 05/10/22 07:47 Pulse 107 H 05/10/22 07:47 Resp 18 05/10/22 07:47 BP 100/59 L 05/10/22 07:47 Pulse Ox 95 05/10/22 07:47 O2 Del Method 05/10/22 07:47 O2 Flow Rate 1 05/09/22 19:54 BMI result Body Mass Index 32.9 General: AO X 3, no acute distress Resp: CTA bilateral, no accessory muscles used CVS: S1,S2,RRR GI: soft, tender, non distended Neuro: motor grossly intact, alert Psych: appropriate affect, appropriate insight Objective Data Active Medications Acetaminophen (Acetaminophen 325 Mg Tablet) 650 mg PO Q6H PRN PRN Reason: Pain, Mild (Pain Scale 1-3) Hydromorphone HCl (Hydromorphone Hcl 1 Mg/Ml Syringe) 0.5 mg IVPUSH Q4H PRN; Protocol PRN Reason: Pain, Severe (Pain Scale 7-10) Ceftriaxone Sodium 1 gm/ (Sodium Chloride) 50 mls @ 100 mls/hr IV Q24H [facility] Last Infusion: 05/09/22 20:04 Dose: 0 mls/hr Documented By: LUIS Metronidazole (Flagyl) 500 mg in 100 mls @ 100 mls/hr IV Q8H [facility] Last Infusion: 05/10/22 04:39 Dose: 0 mls/hr Documented By: LUIS Lactated Ringer's (Lr) 1,000 mls @ 100 mls/hr IVCONT .Q10H [facility] Last Infusion: 05/10/22 09:11 Dose: 0 mls/hr Documented By: SHEA Lorazepam (Lorazepam 1 Mg Tablet) 1 mg PO BEDTIME PRN PRN Reason: Anxiety Mesalamine (Mesalamine 400 Mg Cap.Drtab.) 1,600 mg PO QID [facility] Last Admin: 05/10/22 08:32 Dose: 1,600 mg Documented By: SHEA Sodium Chloride (0.9 % Sodium Chloride Flush 3 Ml Syringe) 3 ml IVFLUSH QSHIFT [facility] Last Admin: 05/10/22 06:51 Dose: Not Given Documented By: SHEA Non-Admin Reason: IV Running Labs CBC & Chem 7: 05/10/22 06:06 05/10/22 06:06 Labs: Laboratory Results - last 24 hr 05/10/22 05/10/22 05/10/22 06:06 06:06 06:06 MCV 80.2 MCH 24.9 L MCHC 31.0 RDW 27.6 H Plt Count 276 MPV 9.0 L Absolute Nucleated RBC 0.020 H Nucleated RBC % (auto) 0.1 Anion Gap 11 L Estim Creat Clear Calc 78.6 Estimated GFR > 60 Fasting Glucose 69 Calcium 7.3 L C-Reactive Protein 7.15 H Microbiology Microbiology Results: Microbiology 05/09/22 02:30 Stool Culture - Preliminary Stool Normal so far. 05/08/22 18:33 Blood Culture - Preliminary Blood - Venous No growth after 24 hours. 05/08/22 18:33 Blood Culture - Preliminary Blood - Venous No growth after 24 hours. Assessment and Plan (1) Colitis: Status: Acute Plan 77F presented with abd pain, brbpr severe sepsis present on admission due to likely worsening ischemic colitis complicated by bacterial superinfection continue rocephin, flagyl iv hydration avoid hypotension started empiric mesalamine, will need eventual sigmoidoscopy and biopsy GI and surgery following cultures negative to date chronic anemia inflammatory and chronic blood loss from colitis edema/anasarca due to GI protein wasting and chronic inflammation, no signs of acute CHF anxiety - ativan dvt prophylaxis - mechanical due to gi bleeding full code reason for continued hospitalization: severe pain, not tolerating po Quality Stroke Does the patient have a stroke diagnosis?: No VTE Prior VTE?: No VTE Risk Level:: Medical - moderate - high VTE Device Contraindication: N/A - Device Ordered VTE Drug Contraindication: Treatment Not Indicated
[2022-05-10] MEDS: Lactated Ringers 1,000 ML 100 ML IVCONT ×2 (10:03→20:20)
[2022-05-10 11:58] VITALS: BP 109/62; PULSE 111; RESP 18; TEMP 36.8; O2SAT 93
[2022-05-10 15:40] VITALS: BP 99/56; PULSE 113; RESP 18; TEMP 37.2; O2SAT 93
[2022-05-10 19:21] VITALS: BP 101/59; PULSE 108; RESP 18; TEMP 36.6; O2SAT 94
[2022-05-10] MEDS: cefTRIAXone sodium 1 GM in 0.9 % Sodium Chloride 50 ML IV (19:45)
[2022-05-10 23:18] VITALS: BP 102/59; PULSE 110; RESP 17; TEMP 36.7; O2SAT 91
[2022-05-11] VITALS (9 sets, daily range): BP systolic 91–110; BP diastolic 54–72; PULSE 96–113; RESP 15–18; TEMP 36–37.3; O2SAT 91–96
[2022-05-11] MEDS: metroNIDAZOLE/NS 500 MG/100 ML PIGGYBACK 100 MG IV ×3 (05:30→21:35)
[2022-05-11 06:15] LABS: Hematocrit 28.7 % (37.0-47.0); Hemoglobin 9.2 g/dl (12.0-16.0); Mean Corpuscular HGB Conc 32.1 g/dl (31.0-35.0); Mean Corpuscular Hemoglobin 25.8 pg (27.0-33.0); Mean Corpuscular Volume 80.6 fL (80.0-98.0); Mean Platelet Volume 9.2 fL (9.4-12.3); Platelet Count 249 X10*3/uL (160-400); Red Blood Count 3.56 X10*6/uL (4.20-5.50); White Blood Count 29.6 X10*3/uL (4.8-10.8)
[2022-05-11 07:22] LABS: Anion Gap 10 (12-20); Blood Urea Nitrogen 13 mg/dL (9-16); Calcium 6.7 mg/dL (8.4-10.2); Carbon Dioxide 25 mmol/L (22-29); Chloride 99 mmol/L (96-108); Estimated Glomerular Filt Rate > 60; Glucose Fasting 56 mg/dL (60-99); Potassium 3.2 mmol/L (3.3-5.1); Sodium 131 mmol/L (135-145)
[2022-05-11] MEDS: Mesalamine 400 MG CAP.DRTAB. 1600 MG PO ×4 (07:52→19:46)
[2022-05-11 07:54] LABS: Glucose, Whole Blood 70 mg/dL (60-115)
--- NOTE | 2022-05-11 08:00 | MHC.CM.PN ---
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 Recommend CT abdomen and pelvis prior to starting steroid treatment to evaluate for abscess.0 DINING CAR WAITER/WAITRESS TO OCNTIN UE TO FOLLOW Original Note: nurse cSE SUPERVISOR PILE DRIVING NOTE; FACILITY DECLINING PATIENT FOR ONE OF THE FOLLOWING REASIONS , NO BED AVAILABILTY , OUT OF NETWORK,([facility]..[facility],,[facility], [facility], [facility], [facility], [facility] TRANS[facility], [facility], [facility], [facility], [facility] SYED ,E,ORY SUPPORT [facility], [facility],[facility], [facility] TO NAME ONLY A FEW, SITE SUPERVISOR TO CONTINUE TO FOLLOW AND FOLLOW UP WITH [facility]
[2022-05-11 08:28] LABS: Folate 12.3 ng/mL (> or = 4.0); Vitamin B12 1350 pg/mL (200-900)
[2022-05-11] MEDS: Dextrose 50 % 25 GM/50 ML SYRINGE IVPUSH (08:37)
--- NOTE | 2022-05-11 08:58 | HO.PM.IMPN ---
Subjective Subjective Date of Service: 05/11/22 Interval History: cc: abd pain interval history: about the same Cardiovascular Cardiovascular: Reports no additional cardiovascular complaints Respiratory Respiratory: Reports no additional respiratory complaints Physical Exam Vital Signs: Vital Signs: Last Vital Signs Temp 98.5 F 05/11/22 07:42 Pulse 107 H 05/11/22 07:42 Resp 18 05/11/22 07:42 BP 91/56 L 05/11/22 07:42 Pulse Ox 91 L 05/11/22 07:42 O2 Del Method 05/11/22 07:42 O2 Flow Rate 0.5 05/10/22 19:21 BMI result Body Mass Index 32.9 General: AO X 3, no acute distress Resp: CTA bilateral, no accessory muscles used CVS: S1,S2,RRR GI: soft, tender, non distended Neuro: motor grossly intact, alert Psych: appropriate affect, appropriate insight Objective Data Active Medications Acetaminophen (Acetaminophen 325 Mg Tablet) 650 mg PO Q6H PRN PRN Reason: Pain, Mild (Pain Scale 1-3) Hydromorphone HCl (Hydromorphone Hcl 1 Mg/Ml Syringe) 0.5 mg IVPUSH Q4H PRN; Protocol PRN Reason: Pain, Severe (Pain Scale 7-10) Ceftriaxone Sodium 1 gm/ (Sodium Chloride) 50 mls @ 100 mls/hr IV Q24H [facility] Last Infusion: 05/10/22 21:10 Dose: 0 mls/hr Documented By: ANUSHA Metronidazole (Flagyl) 500 mg in 100 mls @ 100 mls/hr IV Q8H [facility] Last Infusion: 05/11/22 06:33 Dose: 0 mls/hr Documented By: TERRENCE Lactated Ringer's (Lr) 1,000 mls @ 100 mls/hr IVCONT .Q10H [facility] Last Infusion: 05/11/22 07:52 Dose: 0 mls/hr Documented By: WEI Lorazepam (Lorazepam 1 Mg Tablet) 1 mg PO BEDTIME PRN PRN Reason: Anxiety Mesalamine (Mesalamine 400 Mg Cap.Drtab.) 1,600 mg PO QID [facility] Last Admin: 05/11/22 07:52 Dose: 1,600 mg Documented By: WEI Sodium Chloride (0.9 % Sodium Chloride Flush 3 Ml Syringe) 3 ml IVFLUSH QSHIFT [facility] Last Admin: 05/11/22 07:53 Dose: Not Given Documented By: WEI Non-Admin Reason: IV Running Labs CBC & Chem 7: 05/11/22 05:18 05/11/22 05:18 Labs: Laboratory Results - last 24 hr 05/08/22 05/11/22 05/11/22 18:34 05:18 05:18 MCV 80.6 MCH 25.8 L MCHC 32.1 RDW 27.0 H Plt Count 249 MPV 9.2 L Absolute Nucleated RBC 0.000 Nucleated RBC % (auto) 0.0 Anion Gap 10 L Estim Creat Clear Calc 83.0 Estimated GFR > 60 POC Glucose Fasting Glucose 56 L* Calcium 6.7 L D Vitamin B12 1350 H Folate 12.3 05/11/22 07:50 MCV MCH MCHC RDW Plt Count MPV Absolute Nucleated RBC Nucleated RBC % (auto) Anion Gap Estim Creat Clear Calc Estimated GFR POC Glucose 70 Fasting Glucose Calcium Vitamin B12 Folate Microbiology Microbiology Results: Microbiology 05/09/22 02:30 Stool Culture - Preliminary Stool Normal so far. 05/08/22 18:33 Blood Culture - Preliminary Blood - Venous No growth after 48 hours. 05/08/22 18:33 Blood Culture - Preliminary Blood - Venous No growth after 48 hours. Assessment and Plan (1) Colitis: Status: Acute Plan 77F presented with abd pain, brbpr severe sepsis present on admission due to likely worsening ischemic colitis complicated by bacterial superinfection continue rocephin, flagyl iv hydration avoid hypotension started empiric mesalamine, plan for sigmoidoscopy and biopsy today, 05/11/22 GI and surgery following cultures negative chronic anemia inflammatory and chronic blood loss from colitis edema/anasarca due to GI protein wasting and chronic inflammation, no signs of acute CHF anxiety - ativan dvt prophylaxis - mechanical due to gi bleeding full code reason for continued hospitalization: severe pain, not tolerating po Quality Stroke Does the patient have a stroke diagnosis?: No VTE Prior VTE?: No VTE Risk Level:: Medical - moderate - high VTE Device Contraindication: N/A - Device Ordered VTE Drug Contraindication: Treatment Not Indicated
[2022-05-11 09:25] LABS: Glucose, Whole Blood 119 mg/dL (60-115)
[2022-05-11 10:01] LABS: Glucose, Whole Blood 115 mg/dL (60-115)
--- NOTE | 2022-05-11 10:11 | P.HPSUR_ITS ---
Pre-Procedural Eval Section A Date of Service: 05/11/22 The patient is an INPATIENT: Yes The History & Physical has been completed within 30 days and I have reviewed it.: Yes Section B Chief Complaint: Colitis Allergies: Allergies Allergy/AdvReac Type Severity Reaction Status Date / Time Fish Containing Products Allergy Unknown HIVES TO Verified 04/21/22 14:16 COD Penicillins [PENICILLINS] Allergy Unknown UNKNOWN Verified 04/21/22 14:16 Sulfa (Sulfonamide Allergy Unknown HIVES Verified 04/21/22 14:16 Antibiotics) [SULFA (SULFONAMIDE ANTIBIOTICS)] sulfamethoxazole Allergy Unknown HIVES Verified 04/21/22 14:16 [From BACTRIM] trimethoprim [From BACTRIM] Allergy Unknown HIVES Verified 04/21/22 14:16 Plan Diagnosis/Plan: Unchanged I have reviewed the history and physical and performed a pertinent physical examination on my patient. No changes have occurred unless specified. s igmoidoscopy and biopsy
--- NOTE | 2022-05-11 10:12 | P.BOP_ITS ---
Brief Operative Note Date of Service: 05/11/22 Pre-op diagnosis: colitis Post-op diagnosis: same Procedure: see op note Surgeon: Harshad Kwno MD Anesthesia: MAC Was an Mash Filter Operator used for this Procedure?: No Estimated blood loss (mL): 0 Condition: stable Disposition: PACU
--- NOTE | 2022-05-11 10:13 | W.PM.OPN ---
Operative Note Operative Note Date of Service: 05/11/22 Narrative: Operative Information Procedure Description: sigmoidoscopy Indication: colitis Anesthesia: MAC SIGMOIDOSCOPY Instrument: Olympus variable stiffness pediatric scope 190L Colonoscopy Monitoring: Vital signs and clinical assessment, continuous EKG monitoring, Pulse oximetry, Carbon Dioxide monitoring and blood pressure monitoring were done throughout the procedure. Procedure: The patient was placed in the left lateral decubitis position and pre-procedure medications were administered. After a digital rectal examination of the ano-rectum, the video colonoscope was inserted into the rectum and advanced through the colon to the transverse colon The colonoscope was slowly withdrawn in a retrograde panoramic fashion and the colon mucosa was carefully examined Findings and interventions are described below. Procedure Difficulty: easy Findings: Transverse Colon -mildly inflammed with granular mucosa Descending Colon to Rectum- severe inflammation with edematous mucosa with areas of denudation and bridging fibrosis with luminal narrowing. Mucosal friability also noted. Some changes appeared chronic. Bx taken from above areas Anorectum - normal Impression and Post Procedure Diagnosis: Severe left sided colitis, UC vs ischemic Plan: Await biopsies, try to get urgent read If UC confirmed then solumedrol 20 mg q8 hr and possible inpatient remicade, if ischemic pathology then may need surgery and resection Above findings were reviewed with the patient and relevant handouts were provided if indicated.
--- NOTE | 2022-05-11 11:01 | P.CONAN_ITS ---
FORMERLY [facility] Active Problems Active Problems: All Active Problems (Updated 05/08/22 @ 21:54 by Laura More NP) Colitis (Acute) BRBPR (bright red blood per rectum) (Acute) Anemia (Acute) Past Medical History Medical History Hypertension Functional capacity: independent ambulation Patient : No Family History Family history of problems with anesthesia: No Social History Social History Household Members: Spouse Housing: House Do you presently have visiting nurse or other home services: No Alcohol intake: never Patient Tobacco Use Status: Former Tobacco user Second Hand Smoke Exposure: No Use of substances other than those prescribed or required for medical reasons: No Currently Displaying Signs/Symptoms of Drug Intoxication Withdrawal: No Have you been hit, kicked, punched, or otherwise hurt by someone within the past year? If so, by whom?: No Do you feel safe in your current relationship?: Yes Is there a partner from a previous relationship who is making you feel unsafe now?: No Are you made to feel afraid or neglected: No Are you DNR?: No Advance Directives: No Advance Directives Information Provided: No Advance Directives on File: No Do you have thoughts of harming others: None Do you have a plan to hurt others: No Plan Recently lost weight without trying: No Nutrition Risks: No Nutritional Risk service: No Current occupational status: retired Current occupational exposures/hazards: No Meds Allergies Allergy/AdvReac Type Severity Reaction Status Date / Time Fish Containing Products Allergy Unknown HIVES TO Verified 04/21/22 14:16 COD Penicillins [PENICILLINS] Allergy Unknown UNKNOWN Verified 04/21/22 14:16 Sulfa (Sulfonamide Allergy Unknown HIVES Verified 04/21/22 14:16 Antibiotics) [SULFA (SULFONAMIDE ANTIBIOTICS)] sulfamethoxazole Allergy Unknown HIVES Verified 04/21/22 14:16 [From BACTRIM] trimethoprim [From BACTRIM] Allergy Unknown HIVES Verified 04/21/22 14:16 Active Medications: Current Medications Acetaminophen (Acetaminophen 325 Mg Tablet) 650 mg PO Q6H PRN PRN Reason: Pain, Mild (Pain Scale 1-3) Hydromorphone HCl (Hydromorphone Hcl 1 Mg/Ml Syringe) 0.5 mg IVPUSH Q4H PRN; Protocol PRN Reason: Pain, Severe (Pain Scale 7-10) Ceftriaxone Sodium 1 gm/ (Sodium Chloride) 50 mls @ 100 mls/hr IV Q24H [facility] Last Infusion: 05/10/22 21:10 Dose: Infused Metronidazole (Flagyl) 500 mg in 100 mls @ 100 mls/hr IV Q8H [facility] Last Infusion: 05/11/22 06:33 Dose: Infused Lactated Ringer's (Lr) 1,000 mls @ 100 mls/hr IVCONT .Q10H [facility] Last Infusion: 05/11/22 07:52 Dose: Infused Lorazepam (Lorazepam 1 Mg Tablet) 1 mg PO BEDTIME PRN PRN Reason: Anxiety Mesalamine (Mesalamine 400 Mg Cap.Drtab.) 1,600 mg PO QID [facility] Last Admin: 05/11/22 07:52 Dose: 1,600 mg Sodium Chloride (0.9 % Sodium Chloride Flush 3 Ml Syringe) 3 ml IVFLUSH QSHIFT [facility] Last Admin: 05/11/22 07:53 Dose: Not Given Home Medications Medication Instructions Recorded Confirmed Last Taken Type lorazepam 1 mg tablet 1 tab PO BEDTIME PRN Anxiety 04/21/22 05/08/22 Unknown History multivitamin 1 tab PO DAILY 05/08/22 05/08/22 Unknown History omeprazole 20 mg capsule,delayed 20 mg PO DAILY 05/08/22 05/08/22 Unknown History release Exam Exam Date and Time: May 11, 2022 1101 Height,Weight and Vital Signs: Height 5 ft 1 in Weight 79.1 kg Last Vital Signs Temp 98.0 F 05/11/22 09:46 Pulse 112 H 05/11/22 09:46 Resp 18 05/11/22 09:46 BP 97/61 05/11/22 09:46 Pulse Ox 92 05/11/22 09:46 O2 Del Method 05/11/22 09:46 O2 Flow Rate 0.5 05/10/22 19:21 Pertinent Lab Results Pertinent Lab Results: Laboratory Tests 05/08/22 05/08/22 05/08/22 18:08 18:18 18:33 WBC RBC Hgb Hct MCV MCH MCHC RDW Plt Count MPV Immature Gran % (Auto) Neut % (Auto) Lymph % (Auto) [place] % (Auto) Eos % (Auto) Baso % (Auto) Lymph # (Auto) [place] # (Auto) Eos # (Auto) Baso # (Auto) Abs Immat Gran (auto) Absolute Neuts (auto) Absolute Nucleated RBC Nucleated RBC % (auto) Smear Tech's Comments ESR PT INR APTT Sodium Potassium Chloride Carbon Dioxide Anion Gap BUN Creatinine Estim Creat Clear Calc Estimated GFR POC Glucose Random Glucose Fasting Glucose Lactic Acid Lactic Acid F/U @ 2Hr Calcium Magnesium Iron TIBC % Saturation Unsat Iron Binding Total Bilirubin Direct Bilirubin AST ALT Alkaline Phosphatase Troponin I High Sens C-Reactive Protein B-Natriuretic Peptide Total Protein Albumin Lipase Vitamin B12 Folate Stool Occult Blood POSITIVE Stool Leukocytes, Qual JAVI Screen JAVI Titer JAVI Titer 2 JAVI Titer 3 JAVI Pattern JAVI Pattern 2 JAVI Pattern 3 C. difficile Tox B Gene Influenza Type A (PCR) NEGATIVE Influenza Type B (PCR) NEGATIVE RSV RNA Qual (PCR) NEGATIVE SARS-CoV-2 RNA (RT-PCR) NEGATIVE Blood Type B Positive Antibody Screen NEGATIVE 05/08/22 05/08/22 05/08/22 18:34 18:34 18:34 WBC RBC Hgb Hct MCV MCH MCHC RDW Plt Count MPV Immature Gran % (Auto) Neut % (Auto) Lymph % (Auto) [place] % (Auto) Eos % (Auto) Baso % (Auto) Lymph # (Auto) [place] # (Auto) Eos # (Auto) Baso # (Auto) Abs Immat Gran (auto) Absolute Neuts (auto) Absolute Nucleated RBC Nucleated RBC % (auto) Smear Tech's Comments ESR PT INR APTT Sodium Potassium Chloride Carbon Dioxide Anion Gap BUN Creatinine Estim Creat Clear Calc Estimated GFR POC Glucose Random Glucose Fasting Glucose Lactic Acid 3.1 H* Lactic Acid F/U @ 2Hr Calcium Magnesium Iron TIBC % Saturation Unsat Iron Binding Total Bilirubin Direct Bilirubin AST ALT Alkaline Phosphatase Troponin I High Sens 9.0 C-Reactive Protein B-Natriuretic Peptide 161 H Total Protein Albumin Lipase Vitamin B12 1350 H Folate 12.3 Stool Occult Blood Stool Leukocytes, Qual JVAI Screen JAVI Titer JAVI Titer 2 JAVI Titer 3 JAVI Pattern JAVI Pattern 2 JAVI Pattern 3 C. difficile Tox B Gene Influenza Type A (PCR) Influenza Type B (PCR) RSV RNA Qual (PCR) SARS-CoV-2 RNA (RT-PCR) Blood Type Antibody Screen 05/08/22 05/08/22 05/08/22 18:35 18:35 18:35 WBC 16.3 H RBC 3.98 L Hgb 9.9 L Hct 31.0 L MCV 77.9 L MCH 24.9 L MCHC 31.9 RDW 25.4 H Plt Count 326 D MPV 8.9 L Immature Gran % (Auto) 1.6 H Neut % (Auto) 83.2 H Lymph % (Auto) 11.4 L [place] % (Auto) 3.4 Eos % (Auto) 0.2 Baso % (Auto) 0.2 Lymph # (Auto) 1.9 [place] # (Auto) 0.6 Eos # (Auto) 0.0 Baso # (Auto) 0.0 Abs Immat Gran (auto) 0.26 H Absolute Neuts (auto) 13.6 H Absolute Nucleated RBC 0.030 H Nucleated RBC % (auto) 0.2 Smear Tech's Comments ESR PT 15.8 H INR 1.4 H APTT 19.1 L Sodium 131 L Potassium 2.7 L D Chloride 94 L Carbon Dioxide 27 Anion Gap 13 BUN 15 Creatinine 0.68 Estim Creat Clear Calc 66.0 Estimated GFR > 60 POC Glucose Random Glucose 113 Fasting Glucose Lactic Acid Lactic Acid F/U @ 2Hr Calcium 7.9 L D Magnesium 1.9 Iron TIBC % Saturation Unsat Iron Binding Total Bilirubin 0.8 Direct Bilirubin 0.5 AST 31 D ALT 22 Alkaline Phosphatase 77 Troponin I High Sens C-Reactive Protein 9.03 H B-Natriuretic Peptide Total Protein 5.2 L Albumin 2.1 L Lipase 23 Vitamin B12 Folate Stool Occult Blood Stool Leukocytes, Qual JAVI Screen JAVI Titer JAVI Titer 2 JAVI Titer 3 JAVI Pattern JAVI Pattern 2 JAVI Pattern 3 C. difficile Tox B Gene Influenza Type A (PCR) Influenza Type B (PCR) RSV RNA Qual (PCR) SARS-CoV-2 RNA (RT-PCR) Blood Type Antibody Screen 05/08/22 05/08/22 05/08/22 20:59 23:26 23:26 WBC RBC Hgb Hct MCV MCH MCHC RDW Plt Count MPV Immature Gran % (Auto) Neut % (Auto) Lymph % (Auto) [place] % (Auto) Eos % (Auto) Baso % (Auto) Lymph # (Auto) [place] # (Auto) Eos # (Auto) Baso # (Auto) Abs Immat Gran (auto) Absolute Neuts (auto) Absolute Nucleated RBC Nucleated RBC % (auto) Smear Tech's Comments ESR 10 PT INR APTT Sodium Potassium Chloride Carbon Dioxide Anion Gap BUN Creatinine Estim Creat Clear Calc Estimated GFR POC Glucose Random Glucose Fasting Glucose Lactic Acid Lactic Acid F/U @ 2Hr 1.4 Calcium Magnesium Iron 36 TIBC 84 L % Saturation 43 Unsat Iron Binding 48 Total Bilirubin Direct Bilirubin AST ALT Alkaline Phosphatase Troponin I High Sens C-Reactive Protein 7.61 H B-Natriuretic Peptide Total Protein Albumin Lipase Vitamin B12 Folate Stool Occult Blood Stool Leukocytes, Qual JAVI Screen JAVI Titer JAVI Titer 2 JAVI Titer 3 JAVI Pattern JAVI Pattern 2 JAVI Pattern 3 C. difficile Tox B Gene Influenza Type A (PCR) Influenza Type B (PCR) RSV RNA Qual (PCR) SARS-CoV-2 RNA (RT-PCR) Blood Type Antibody Screen 05/08/22 05/08/22 05/09/22 23:26 23:26 02:30 WBC RBC Hgb Hct MCV MCH MCHC RDW Plt Count MPV Immature Gran % (Auto) Neut % (Auto) Lymph % (Auto) [place] % (Auto) Eos % (Auto) Baso % (Auto) Lymph # (Auto) [place] # (Auto) Eos # (Auto) Baso # (Auto) Abs Immat Gran (auto) Absolute Neuts (auto) Absolute Nucleated RBC Nucleated RBC % (auto) Smear Tech's Comments ESR PT INR APTT Sodium Potassium Chloride Carbon Dioxide Anion Gap BUN Creatinine Estim Creat Clear Calc Estimated GFR POC Glucose Random Glucose Fasting Glucose Lactic Acid Lactic Acid F/U @ 2Hr Calcium Magnesium Iron TIBC % Saturation Unsat Iron Binding Total Bilirubin Direct Bilirubin AST ALT Alkaline Phosphatase Troponin I High Sens C-Reactive Protein B-Natriuretic Peptide Total Protein Albumin Lipase Vitamin B12 Cancelled Folate Cancelled Stool Occult Blood Stool Leukocytes, Qual MANY: >10/OIF JAVI Screen Cancelled JAVI Titer Cancelled JAVI Titer 2 Cancelled JAVI Titer 3 Cancelled JAVI Pattern Cancelled JAVI Pattern 2 Cancelled JAVI Pattern 3 Cancelled C. difficile Tox B Gene Influenza Type A (PCR) Influenza Type B (PCR) RSV RNA Qual (PCR) SARS-CoV-2 RNA (RT-PCR) Blood Type Antibody Screen 05/09/22 05/09/22 05/09/22 02:30 04:51 04:51 WBC 17.2 H RBC 3.66 L Hgb 9.1 L Hct 28.8 L MCV 78.7 L MCH 24.9 L MCHC 31.6 RDW 26.6 H Plt Count 302 MPV 9.1 L Immature Gran % (Auto) 1.5 H Neut % (Auto) 79.2 H Lymph % (Auto) 15.1 L [place] % (Auto) 3.5 Eos % (Auto) 0.1 Baso % (Auto) 0.6 Lymph # (Auto) 2.6 [place] # (Auto) 0.6 Eos # (Auto) 0.0 Baso # (Auto) 0.1 Abs Immat Gran (auto) 0.25 H Absolute Neuts (auto) 13.7 H Absolute Nucleated RBC 0.000 Nucleated RBC % (auto) 0.0 Smear Tech's Comments VERIFIED ESR PT INR APTT Sodium 132 L Potassium 3.4 D Chloride 99 Carbon Dioxide 26 Anion Gap 10 L BUN 14 Creatinine 0.56 Estim Creat Clear Calc 80.1 Estimated GFR > 60 POC Glucose Random Glucose 79 Fasting Glucose Lactic Acid Lactic Acid F/U @ 2Hr Calcium 7.2 L D Magnesium Iron TIBC % Saturation Unsat Iron Binding Total Bilirubin Direct Bilirubin AST ALT Alkaline Phosphatase Troponin I High Sens C-Reactive Protein B-Natriuretic Peptide Total Protein Albumin Lipase Vitamin B12 Folate Stool Occult Blood Stool Leukocytes, Qual JAVI Screen JAVI Titer JAVI Titer 2 JAVI Titer 3 JAVI Pattern JAVI Pattern 2 JAVI Pattern 3 C. difficile Tox B Gene NEGATIVE Influenza Type A (PCR) Influenza Type B (PCR) RSV RNA Qual (PCR) SARS-CoV-2 RNA (RT-PCR) Blood Type Antibody Screen 05/10/22 05/10/22 05/10/22 06:06 06:06 06:06 WBC 19.0 H RBC 3.78 L Hgb 9.4 L Hct 30.3 L MCV 80.2 MCH 24.9 L MCHC 31.0 RDW 27.6 H Plt Count 276 MPV 9.0 L Immature Gran % (Auto) Neut % (Auto) Lymph % (Auto) [place] % (Auto) Eos % (Auto) Baso % (Auto) Lymph # (Auto) [place] # (Auto) Eos # (Auto) Baso # (Auto) Abs Immat Gran (auto) Absolute Neuts (auto) Absolute Nucleated RBC 0.020 H Nucleated RBC % (auto) 0.1 Smear Tech's Comments ESR PT INR APTT Sodium 133 L Potassium 4.0 Chloride 100 Carbon Dioxide 26 Anion Gap 11 L BUN 12 Creatinine 0.57 Estim Creat Clear Calc 78.6 Estimated GFR > 60 POC Glucose Random Glucose Fasting Glucose 69 Lactic Acid Lactic Acid F/U @ 2Hr Calcium 7.3 L Magnesium Iron TIBC % Saturation Unsat Iron Binding Total Bilirubin Direct Bilirubin AST ALT Alkaline Phosphatase Troponin I High Sens C-Reactive Protein 7.15 H B-Natriuretic Peptide Total Protein Albumin Lipase Vitamin B12 Folate Stool Occult Blood Stool Leukocytes, Qual JAVI Screen JAVI Titer JAVI Titer 2 JAVI Titer 3 JAVI Pattern JAVI Pattern 2 JAVI Pattern 3 C. difficile Tox B Gene Influenza Type A (PCR) Influenza Type B (PCR) RSV RNA Qual (PCR) SARS-CoV-2 RNA (RT-PCR) Blood Type Antibody Screen 05/11/22 05/11/22 05/11/22 05:18 05:18 07:50 WBC 29.6 H RBC 3.56 L Hgb 9.2 L Hct 28.7 L MCV 80.6 MCH 25.8 L MCHC 32.1 RDW 27.0 H Plt Count 249 MPV 9.2 L Immature Gran % (Auto) Neut % (Auto) Lymph % (Auto) [place] % (Auto) Eos % (Auto) Baso % (Auto) Lymph # (Auto) [place] # (Auto) Eos # (Auto) Baso # (Auto) Abs Immat Gran (auto) Absolute Neuts (auto) Absolute Nucleated RBC 0.000 Nucleated RBC % (auto) 0.0 Smear Tech's Comments ESR PT INR APTT Sodium 131 L Potassium 3.2 L Chloride 99 Carbon Dioxide 25 Anion Gap 10 L BUN 13 Creatinine 0.54 Estim Creat Clear Calc 83.0 Estimated GFR > 60 POC Glucose 70 Random Glucose Fasting Glucose 56 L* Lactic Acid Lactic Acid F/U @ 2Hr Calcium 6.7 L D Magnesium Iron TIBC % Saturation Unsat Iron Binding Total Bilirubin Direct Bilirubin AST ALT Alkaline Phosphatase Troponin I High Sens C-Reactive Protein B-Natriuretic Peptide Total Protein Albumin Lipase Vitamin B12 Folate Stool Occult Blood Stool Leukocytes, Qual JVAI Screen JAVI Titer JAVI Titer 2 JAVI Titer 3 JAVI Pattern JAVI Pattern 2 JAVI Pattern 3 C. difficile Tox B Gene Influenza Type A (PCR) Influenza Type B (PCR) RSV RNA Qual (PCR) SARS-CoV-2 RNA (RT-PCR) Blood Type Antibody Screen 05/11/22 05/11/22 09:21 09:58 WBC RBC Hgb Hct MCV MCH MCHC RDW Plt Count MPV Immature Gran % (Auto) Neut % (Auto) Lymph % (Auto) [place] % (Auto) Eos % (Auto) Baso % (Auto) Lymph # (Auto) [place] # (Auto) Eos # (Auto) Baso # (Auto) Abs Immat Gran (auto) Absolute Neuts (auto) Absolute Nucleated RBC Nucleated RBC % (auto) Smear Tech's Comments ESR PT INR APTT Sodium Potassium Chloride Carbon Dioxide Anion Gap BUN Creatinine Estim Creat Clear Calc Estimated GFR POC Glucose 119 H 115 Random Glucose Fasting Glucose Lactic Acid Lactic Acid F/U @ 2Hr Calcium Magnesium Iron TIBC % Saturation Unsat Iron Binding Total Bilirubin Direct Bilirubin AST ALT Alkaline Phosphatase Troponin I High Sens C-Reactive Protein B-Natriuretic Peptide Total Protein Albumin Lipase Vitamin B12 Folate Stool Occult Blood Stool Leukocytes, Qual JAVI Screen JAVI Titer JAVI Titer 2 JAVI Titer 3 JAVI Pattern JAVI Pattern 2 JAVI Pattern 3 C. difficile Tox B Gene Influenza Type A (PCR) Influenza Type B (PCR) RSV RNA Qual (PCR) SARS-CoV-2 RNA (RT-PCR) Blood Type Antibody Screen Assessment and Plan Final Anesthetic Review Family History of Problems with Anesthesia: No
[2022-05-11] MEDS: Lactated Ringers 1,000 ML 100 ML IVCONT ×2 (12:38→21:35)
[2022-05-11 14:21] LABS: Anti Nuclear Antibody Screen NEGATIVE (NEGATIVE)
--- NOTE | 2022-05-11 15:18 | PC.NURSE ---
Alert and oriented. Denies pain or discomfort. VSS, afebrile, no acute resp. distress noted. Continue on IV ABT, no adverse reactions noted. NPO for sigmoidoscopy. Critical fasting blood sugar of 56 reported, no apparent symptoms noted. MD updated, 12.5gm of D50 given, recheck blood sugar 119. Sigmoidoscopy completed. Back on clear diet. LR infusing well at 100ml/hr. Fall precautions maintained. Will continue to monitor and treat per plan of care.
--- NOTE | 2022-05-11 16:49 | PM.PNGS ---
Subjective Subjective Date of Service: 05/11/22 Interval history: Patient denies new symptoms, pain in the left abdomen Physical Exam Vital Signs: Vital Signs: Last Vital Signs Temp 96.8 F 05/11/22 16:00 Pulse 100 05/11/22 16:00 Resp 17 05/11/22 16:00 BP 102/65 05/11/22 16:00 Pulse Ox 93 05/11/22 16:00 O2 Del Method 05/11/22 16:00 O2 Flow Rate 2 05/11/22 11:43 BMI result Body Mass Index 32.9 Const: General: no acute distress Nutritional Appearance: well nourished Orientation/consciousness: patient oriented x3 Limitations: no limitations Resp: Effort & Inspection: normal respiratory effort GI: Other: soft, tender in the LUQ and LLQ. No rebound or guarding. Skin: Other: warm and dry Neuro: General: patient oriented x3 Extrem: Other: brisk cap refill Objective Data Active Medications Acetaminophen (Acetaminophen 325 Mg Tablet) 650 mg PO Q6H PRN PRN Reason: Pain, Mild (Pain Scale 1-3) Hydromorphone HCl (Hydromorphone Hcl 1 Mg/Ml Syringe) 0.5 mg IVPUSH Q4H PRN; Protocol PRN Reason: Pain, Severe (Pain Scale 7-10) Ceftriaxone Sodium 1 gm/ (Sodium Chloride) 50 mls @ 100 mls/hr IV Q24H [facility] Last Infusion: 05/10/22 21:10 Dose: 0 mls/hr Documented By: ANUSHA Metronidazole (Flagyl) 500 mg in 100 mls @ 100 mls/hr IV Q8H [facility] Last Infusion: 05/11/22 13:41 Dose: 0 mls/hr Documented By: WEI Lactated Ringer's (Lr) 1,000 mls @ 100 mls/hr IVCONT .Q10H [facility] Last Admin: 05/11/22 12:38 Dose: 100 mls/hr Documented By: WEI Lorazepam (Lorazepam 1 Mg Tablet) 1 mg PO BEDTIME PRN PRN Reason: Anxiety Mesalamine (Mesalamine 400 Mg Cap.Drtab.) 1,600 mg PO QID [facility] [place] Last Admin: 05/11/22 12:39 Dose: 1,600 mg Documented By: WEI Multivitamins/Vitamin C (Multivitamin Tablet) 1 tab PO DAILY [facility] [place] Omeprazole (Omeprazole 20 Mg Davis.) 20 mg PO DAILY@0630 [facility] [place] Sodium Chloride (0.9 % Sodium Chloride Flush 3 Ml Syringe) 3 ml IVFLUSH QSHIFT [facility] Last Admin: 05/11/22 07:53 Dose: Not Given Documented By: WEI Non-Admin Reason: IV Running Labs CBC & Chem 7: 05/11/22 05:18 05/11/22 05:18 Labs: Laboratory Results - last 24 hr 05/08/22 05/08/22 05/11/22 18:34 18:35 05:18 MCV 80.6 MCH 25.8 L MCHC 32.1 RDW 27.0 H Plt Count 249 MPV 9.2 L Absolute Nucleated RBC 0.000 Nucleated RBC % (auto) 0.0 Anion Gap Estim Creat Clear Calc Estimated GFR POC Glucose Fasting Glucose Calcium Vitamin B12 1350 H Folate 12.3 JAVI Screen NEGATIVE 05/11/22 05/11/22 05/11/22 05:18 07:50 09:21 MCV MCH MCHC RDW Plt Count MPV Absolute Nucleated RBC Nucleated RBC % (auto) Anion Gap 10 L Estim Creat Clear Calc 83.0 Estimated GFR > 60 POC Glucose 70 119 H Fasting Glucose 56 L* Calcium 6.7 L D Vitamin B12 Folate JAVI Screen 05/11/22 09:58 MCV MCH MCHC RDW Plt Count MPV Absolute Nucleated RBC Nucleated RBC % (auto) Anion Gap Estim Creat Clear Calc Estimated GFR POC Glucose 115 Fasting Glucose Calcium Vitamin B12 Folate JAVI Screen Microbiology Microbiology Results: Microbiology 05/09/22 02:30 Stool Culture - Preliminary Stool Normal so far. 05/08/22 18:33 Blood Culture - Preliminary Blood - Venous No growth after 48 hours. 05/08/22 18:33 Blood Culture - Preliminary Blood - Venous No growth after 48 hours. Procedures Date of Service Date of Service: 05/11/22 Progress Note: A&P Assessment and plan (1) Colitis: Status: Acute Plan Continued abdominal pain and increasing leukocytosis. Discussed with Dr. Kwon; findings of flex sig reviewed ischemic vs. ulcerative colitis. Biopsy pending. Bowel wall not frankly necrotic. He is considering treatment for UC. Recommend CT abdomen and pelvis prior to starting steriod treatment to evaluate for abscess. Time Spent With Patient Time: Total time spent is greater than 50% in coordination of care (as documented) at patient's floor/unit and/or counseling patient: Quality Stroke Does the patient have a stroke diagnosis?: No VTE Prior VTE?: No VTE Risk Level:: Medical - moderate - high VTE Device Contraindication: N/A - Device Ordered VTE Drug Contraindication: Treatment Not Indicated
[2022-05-11] MEDS: HYDROmorphone HCl 1 MG/ML SYRINGE 0.5 MG IVPUSH (18:00)
[2022-05-11] MEDS: cefTRIAXone sodium 1 GM in 0.9 % Sodium Chloride 50 ML IV (19:40)
[2022-05-11] MEDS: 0.9 % Sodium Chloride Flush 3 ML SYRINGE IVFLUSH (21:38)
[2022-05-12] VITALS (7 sets, daily range): BP systolic 90–112; BP diastolic 56–67; PULSE 98–116; RESP 16–18; TEMP 36.1–37.2; O2SAT 93–97
[2022-05-12] MEDS: metroNIDAZOLE/NS 500 MG/100 ML PIGGYBACK 100 MG IV ×3 (04:30→21:27)
[2022-05-12] MEDS: Omeprazole 20 MG CAPSULE.DR PO (05:55)
[2022-05-12 06:30] LABS: Hemoglobin 9.8 g/dl (12.0-16.0); Mean Corpuscular HGB Conc 30.6 g/dl (31.0-35.0); Mean Corpuscular Hemoglobin 25.5 pg (27.0-33.0); Mean Corpuscular Volume 83.3 fL (80.0-98.0); Mean Platelet Volume 9.6 fL (9.4-12.3); Platelet Count 178 X10*3/uL (160-400); Red Blood Count 3.84 X10*6/uL (4.20-5.50); Red Cell Distribution Width 28.5 % (11.0-16.0); White Blood Count 25.4 X10*3/uL (4.8-10.8)
[2022-05-12 06:59] LABS: Blood Urea Nitrogen 17 mg/dL (9-16); Calcium 6.5 mg/dL (8.4-10.2); Creatinine Clr Calc Pharmacy 66.9; Estimated Glomerular Filt Rate > 60; Glucose Fasting 71 mg/dL (60-99)
[2022-05-12 07:31] LABS: Anion Gap 13 (12-20); Carbon Dioxide 20 mmol/L (22-29); Chloride 100 mmol/L (96-108); Sodium 129 mmol/L (135-145)
[2022-05-12] MEDS: Mesalamine 400 MG CAP.DRTAB. 1600 MG PO ×4 (07:34→20:06)
[2022-05-12] MEDS: Multivitamin TABLET 1 TAB PO (07:35)
[2022-05-12] MEDS: Lactated Ringers 1,000 ML 100 ML IVCONT ×2 (07:38→16:56)
--- NOTE | 2022-05-12 08:52 | P.PNIM_ITS ---
Subjective Subjective Date of Service: 05/12/22 Interval History: cc: abd pain, brbpr interval history: improvement today Cardiovascular Cardiovascular: Reports no additional cardiovascular complaints Respiratory Respiratory: Reports no additional respiratory complaints Physical Exam Vital Signs: Vital Signs: Last Vital Signs Temp 97.2 F 05/12/22 07:00 Pulse 108 H 05/12/22 07:00 Resp 16 05/12/22 07:00 BP 94/56 L 05/12/22 07:00 Pulse Ox 93 05/12/22 07:00 O2 Del Method 05/12/22 07:00 O2 Flow Rate 2 05/11/22 11:43 BMI result Body Mass Index 32.9 General: AO X 3, no acute distress Resp: CTA bilateral, no accessory muscles used CVS: S1,S2,RRR GI: soft, non tender, non distended Neuro: motor grossly intact, alert Psych: appropriate affect, appropriate insight mild diffuse edema Objective Data Active Medications Acetaminophen (Acetaminophen 325 Mg Tablet) 650 mg PO Q6H PRN PRN Reason: Pain, Mild (Pain Scale 1-3) Hydromorphone HCl (Hydromorphone Hcl 1 Mg/Ml Syringe) 0.5 mg IVPUSH Q4H PRN; Protocol PRN Reason: Pain, Severe (Pain Scale 7-10) Last Admin: 05/11/22 18:00 Dose: 0.5 mg Documented By: WEI Ceftriaxone Sodium 1 gm/ (Sodium Chloride) 50 mls @ 100 mls/hr IV Q24H COUNTS INCLUDE 234 BEDS AT THE [facility] Last Infusion: 05/11/22 21:39 Dose: 0 mls/hr Documented By: ANTIONETTE Metronidazole (Flagyl) 500 mg in 100 mls @ 100 mls/hr IV Q8H COUNTS INCLUDE 234 BEDS AT THE [facility] Last Infusion: 05/12/22 05:55 Dose: 0 mls/hr Documented By: ANTIONETTE Lactated Ringer's (Lr) 1,000 mls @ 100 mls/hr IVCONT .Q10H COUNTS INCLUDE 234 BEDS AT THE [facility] Last Admin: 05/12/22 07:38 Dose: 100 mls/hr Documented By: WEI Lorazepam (Lorazepam 1 Mg Tablet) 1 mg PO BEDTIME PRN PRN Reason: Anxiety Mesalamine (Mesalamine 400 Mg Cap.Drtab.) 1,600 mg PO QID COUNTS INCLUDE 234 BEDS AT THE [facility] Last Admin: 05/12/22 07:34 Dose: 1,600 mg Documented By: WEI Multivitamins/Vitamin C (Multivitamin Tablet) 1 tab PO DAILY COUNTS INCLUDE 234 BEDS AT THE [facility] Last Admin: 05/12/22 07:35 Dose: 1 tab Documented By: WEI Omeprazole (Omeprazole 20 Mg Capsule.Dr) 20 mg PO DAILY@0630 COUNTS INCLUDE 234 BEDS AT THE [facility] Last Admin: 05/12/22 05:55 Dose: 20 mg Documented By: ANTIONETTE Sodium Chloride (0.9 % Sodium Chloride Flush 3 Ml Syringe) 3 ml IVFLUSH QSHIFT COUNTS INCLUDE 234 BEDS AT THE [facility] Last Admin: 05/12/22 07:33 Dose: Not Given Documented By: WEI Non-Admin Reason: IV Running Labs CBC & Chem 7: 05/12/22 05:22 05/12/22 05:22 Labs: Laboratory Results - last 24 hr 05/08/22 05/11/22 05/11/22 18:35 09:21 09:58 MCV MCH MCHC RDW Plt Count MPV Absolute Nucleated RBC Nucleated RBC % (auto) Anion Gap Estim Creat Clear Calc Estimated GFR POC Glucose 119 H 115 Fasting Glucose Calcium JAVI Screen NEGATIVE 05/12/22 05/12/22 05:22 05:22 MCV 83.3 MCH 25.5 L MCHC 30.6 L RDW 28.5 H Plt Count 178 D MPV 9.6 Absolute Nucleated RBC 0.000 Nucleated RBC % (auto) 0.0 Anion Gap 13 Estim Creat Clear Calc 66.9 Estimated GFR > 60 POC Glucose Fasting Glucose 71 Calcium 6.5 L JAVI Screen Microbiology Microbiology Results: Microbiology 05/09/22 02:30 Stool Culture - Final Stool Assessment and Plan (1) Colitis: Status: Acute Plan 77F presented with abd pain, brbpr severe sepsis present on admission due to likely worsening ischemic colitis complicated by bacterial superinfection vs ulcerative colitis continue rocephin, flagyl iv hydration avoid hypotension started empiric mesalamine, s/p sigmoidoscopy and biopsy today 05/11/22 - severe inflammation with edematous mucosa with areas of denudation and bridging fibrosis with luminal narrowing. Mucosal friability also noted. Some changes appeared chronic. follow up pathology and repeat CT abd, if more consistent with UC and no evide nce of abscess on CT, may be role for steroids chronic anemia inflammatory and chronic blood loss from colitis edema/anasarca due to GI protein wasting and chronic inflammation, no signs of acute CHF anxiety - ativan dvt prophylaxis - mechanical due to gi bleeding full code reason for continued hospitalization: ongoing work up and treatement for colitis, needing iv fluids, iv abx, and close monitoring. Quality Stroke Does the patient have a stroke diagnosis?: No VTE Prior VTE?: No VTE Risk Level:: Medical - moderate - high VTE Device Contraindication: N/A - Device Ordered VTE Drug Contraindication: Treatment Not Indicated
--- NOTE | 2022-05-12 13:53 | HO.POSTANES ---
Post Anesthesia Evaluation Post Anesthesia Evaluation Vital Signs: Vital Signs Temp Pulse Resp BP Pulse Ox O2 Del Method 05/12/22 11:07 97 Room Air 05/12/22 11:48 98.7 F 98 16 103/62 94 Room Air 05/12/22 07:00 97.2 F 108 H 16 94/56 L 93 Room Air 05/12/22 03:00 97.8 F 105 H 17 112/67 93 Room Air Anesthesia: Monitored Mental Status: Awake Pain Control: Satisfactory Nausea/Vomiting: None Hydration: Adequate Anesthesia-Related Issues: No Anes. Related Issues
--- NOTE | 2022-05-12 14:01 | PC.NURSE ---
Alert and oriented. Denies pain or discomfort. VSS, afebrile, no acute resp. distress noted. Continue on IV ABT, no adverse reaction noted. CT abd/pelvis completed, results pending. LR infusing well. at bedside, updated on plan of care. Resting in bed at this time. Will continue to monitor and treat per plan of care.
--- NOTE | 2022-05-12 18:29 | PM.GIPN ---
Subjective Subjective Date of Service: 05/12/22 Interval History: poor appetite left sided abdo pain passing gas and stool no fevers path with chronic colitis Critical Care Time (minutes): 0 Physical Exam Vital Signs: Vital Signs: Last Vital Signs Temp 97.0 F 05/12/22 15:00 Pulse 109 H 05/12/22 15:00 Resp 17 05/12/22 15:00 BP 90/67 05/12/22 15:00 Pulse Ox 93 05/12/22 15:00 O2 Del Method 05/12/22 15:00 O2 Flow Rate 2 05/11/22 11:43 BMI result Body Mass Index 32.9 EXAM: GENERAL: The patient is frail VITAL SIGNS:see workflow HEENT: Nonicteric sclerae, PERRLA, EOMI. Oropharynx clear. Moist mucous membranes. Conjunctivae appear well perfused. No thyroid mass. CHEST: Chest wall is nontender. HEART: Regular rate and rhythm without murmurs. LUNGS: Clear to auscultation bilaterally. ABDOMEN: Soft, positive bowel sounds, tender, LLQ no organomegaly.no flank tenderness SKIN: No rash, no excessive bruising, petechiae, or purpura. NEUROLOGIC: Cranial nerves II-XII intact without motor/sensory deficit. Extrem: General: Yes normal to inspection Psych: Appearance: grossly normal Objective Data Labs CBC & Chem 7: 05/12/22 05:22 05/12/22 05:22 Labs: Laboratory Results - last 24 hr 05/08/22 05/12/22 05/12/22 18:35 05:22 05:22 WBC 25.4 H RBC 3.84 L Hgb 9.8 L Hct 32.0 L MCV 83.3 MCH 25.5 L MCHC 30.6 L RDW 28.5 H Plt Count 178 D MPV 9.6 Absolute Nucleated RBC 0.000 Nucleated RBC % (auto) 0.0 Sodium 129 L Potassium 4.0 D Chloride 100 Carbon Dioxide 20 L Anion Gap 13 BUN 17 H Creatinine 0.67 Estim Creat Clear Calc 66.9 Estimated GFR > 60 Fasting Glucose 71 Calcium 6.5 L JAVI Titer TNP JAVI Titer 2 TNP JAVI Titer 3 TNP JAVI Pattern TNP JAVI Pattern 2 TNP JAVI Pattern 3 TNP Microbiology Microbiology Results: Microbiology 05/09/22 02:30 Stool Stool Culture - Final 05/08/22 18:33 Blood - Venous Blood Culture - Preliminary No growth after 48 hours. 05/08/22 18:33 Blood - Venous Blood Culture - Preliminary No growth after 48 hours. Procedures Date of Service Date of Service: 05/12/22 Progress Note: A&P Assessment and plan (1) Colitis: Status: Acute Plan 1/ Colitis, possibly UC--path with chronic colitis, confirmed visually by sigmoidoscopy PLAN: 1/ start solumedrol 20 mg q8hr IV for at least 48 hrs, may have to consider remicade if repeat CT is negative for abscess, perforation 2/ would check tb spot, Hep B,C HIV panel 3/ may still need surgical resection gvne severity of disease 4/ DVT prophylaxis wth lovenox, high risk Time Spent With Patient Time: Total time spent is greater than 50% in coordination of care (as documented) at patient's floor/unit and/or counseling patient: Quality Stroke Does the patient have a stroke diagnosis?: No VTE Prior VTE?: No VTE Risk Level:: Medical - moderate - high VTE Device Contraindication: N/A - Device Ordered VTE Drug Contraindication: Treatment Not Indicated
[2022-05-12] MEDS: cefTRIAXone sodium 1 GM in 0.9 % Sodium Chloride 50 ML IV (20:07)
[2022-05-12] MEDS: LORazepam 1 MG TABLET PO (21:27)
[2022-05-12] MEDS: Acetaminophen 325 MG TABLET 650 MG PO (21:27)
[2022-05-12] MEDS: 0.9 % Sodium Chloride Flush 3 ML SYRINGE IVFLUSH (21:31)
[2022-05-12 21:39] LABS: C Reactive Protein 14.17 mg/dL (< or = 0.50)
[2022-05-13] VITALS (8 sets, daily range): BP systolic 91–107; BP diastolic 56–75; PULSE 52–119; RESP 17–19; TEMP 36.2–36.9; O2SAT 92–98
[2022-05-13] MEDS: Lactated Ringers 1,000 ML 100 ML IVCONT (05:37)
[2022-05-13] MEDS: Omeprazole 20 MG CAPSULE.DR PO (05:37)
[2022-05-13] MEDS: metroNIDAZOLE/NS 500 MG/100 ML PIGGYBACK 100 MG IV ×3 (05:37→20:03)
[2022-05-13 06:39] LABS: Hematocrit 29.6 % (37.0-47.0); Hemoglobin 9.5 g/dl (12.0-16.0); Mean Corpuscular HGB Conc 32.1 g/dl (31.0-35.0); Mean Corpuscular Hemoglobin 25.5 pg (27.0-33.0); Mean Corpuscular Volume 79.6 fL (80.0-98.0); Mean Platelet Volume 9.4 fL (9.4-12.3); NRBC Pct Auto 0.1 /100WBC (0.0-0.2); Platelet Count 207 X10*3/uL (160-400); Red Blood Count 3.72 X10*6/uL (4.20-5.50); Red Cell Distribution Width 27.8 % (11.0-16.0); White Blood Count 22.9 X10*3/uL (4.8-10.8)
[2022-05-13 06:56] LABS: Anion Gap 13 (12-20); Blood Urea Nitrogen 19 mg/dL (9-16); Calcium 6.9 mg/dL (8.4-10.2); Carbon Dioxide 20 mmol/L (22-29); Chloride 99 mmol/L (96-108); Creatinine Clr Calc Pharmacy 66.9; Estimated Glomerular Filt Rate > 60; Glucose Fasting 94 mg/dL (60-99); Potassium 3.2 mmol/L (3.3-5.1); Sodium 129 mmol/L (135-145)
[2022-05-13] MEDS: iohexoL 350 MG/ML 100 ML INFUS..BTL IV (07:38)
[2022-05-13 07:52] LABS: HBc Num1 3.32 S/CO (0.00-0.79); HBsAGNum1 0.18 S/CO (0.00-0.99); HIV AB/AG Nonreactive (Nonreactive); HIV Num 1 0.07 S/CO (0.00-0.99); Hepatitis B Surface Antigen Negative (Negative); ~HepC Num1 0.62 S/CO (0.00-0.79); ~Hepatitis B Surface Antibody NONREACTIVE (Nonreactive); ~Hepatitis C Antibody Nonreactive (Nonreactive)
[2022-05-13 08:34] LABS: Hepatitis A Antibody IgM 0.15 Index (0-0.79); ~Hepatitis A Antibody IgM Nonreactive (Nonreactive)
[2022-05-13] MEDS: Multivitamin TABLET 1 TAB PO (09:47)
[2022-05-13] MEDS: Mesalamine 400 MG CAP.DRTAB. 1600 MG PO ×4 (09:47→19:26)
[2022-05-13 10:36] LABS: HBc Num3 0.55 S/CO; Hepatitis B Core Antibody Nonreactive (Nonreactive)
[2022-05-13] MEDS: Potassium Chloride Packet 20 MEQ PACKET 40 MEQ PO (11:12)
--- NOTE | 2022-05-13 11:21 | HO.PM.IMPN ---
Subjective Subjective Date of Service: 05/13/22 Interval History: the patient was seen and evaluated this morning at the bedside Laying in bed, feels Mild improvement since admission but still having abdominal discomfort Denies any fever, chills or nausea or vomiting No reported other overnight events. Systemic review: No fever, chills or weakness No chest pain, palpitation , has edema in lower extremities No shortness of breath or coughing still complaining of abdominal pain, but no moved nausea or vomiting No urinary symptoms No any rash or wounds Physical Exam Vital Signs: Vital Signs: Last Vital Signs Temp 97.7 F 05/13/22 10:52 Pulse 109 H 05/13/22 10:52 Resp 18 05/13/22 10:52 BP 91/61 05/13/22 10:52 Pulse Ox 96 05/13/22 10:52 O2 Del Method 05/13/22 10:52 O2 Flow Rate 2 05/11/22 11:43 BMI result Body Mass Index 32.9 Const: Other: Constitutional : Alert, oriented, not in distress Neck : Normal inspection, Supple Cardiovascular : RRR, no JVP, +2 bilateral lower extremity edema Respiratory : fair bilateral air entry, no crackles, wheezes or rhonchi Gastrointestinal: soft, lax, decreased bowel sounds, mild epigastric and periumbilical tenderness with no surgical signs Skin : Warm, Dry Neurological : Alert & oriented x3, No focal deficit , CN 2-12 within normal Objective Data Active Medications Acetaminophen (Acetaminophen 325 Mg Tablet) 650 mg PO Q6H PRN PRN Reason: Pain, Mild (Pain Scale 1-3) Last Admin: 05/12/22 21:27 Dose: 650 mg Documented By: ANTIONETTE Hydromorphone HCl (Hydromorphone Hcl 1 Mg/Ml Syringe) 0.5 mg IVPUSH Q4H PRN; Protocol PRN Reason: Pain, Severe (Pain Scale 7-10) Last Admin: 05/11/22 18:00 Dose: 0.5 mg Documented By: WEI Ceftriaxone Sodium 1 gm/ (Sodium Chloride) 50 mls @ 100 mls/hr IV Q24H [facility] Last Infusion: 05/12/22 21:31 Dose: 0 mls/hr Documented By: ANTIONETTE Metronidazole (Flagyl) 500 mg in 100 mls @ 100 mls/hr IV Q8H [facility] Last Infusion: 05/13/22 06:46 Dose: 0 mls/hr Documented By: ANTIONETTE Lactated Ringer's (Lr) 1,000 mls @ 80 mls/hr IVCONT .[id number] [facility] Lorazepam (Lorazepam 1 Mg Tablet) 1 mg PO BEDTIME PRN PRN Reason: Anxiety Last Admin: 05/12/22 21:27 Dose: 1 mg Documented By: ANTIONETTE Mesalamine (Mesalamine 400 Mg Cap.Drtab.) 1,600 mg PO QID [facility] Last Admin: 05/13/22 09:47 Dose: 1,600 mg Documented By: BECCA Multivitamins/Vitamin C (Multivitamin Tablet) 1 tab PO DAILY [facility] Last Admin: 05/13/22 09:47 Dose: 1 tab Documented By: BECCA Omeprazole (Omeprazole 20 Mg Capsule.Dr) 20 mg PO DAILY@0630 [facility] Last Admin: 05/13/22 05:37 Dose: 20 mg Documented By: ANTIONETTE Sodium Chloride (0.9 % Sodium Chloride Flush 3 Ml Syringe) 3 ml IVFLUSH QSHIFT [facility] Last Admin: 05/13/22 09:45 Dose: Not Given Documented By: BECCA Non-Admin Reason: IV Running Labs CBC & Chem 7: 05/13/22 05:24 05/13/22 05:24 Labs: Laboratory Results - last 24 hr 05/08/22 05/12/22 05/13/22 18:35 21:14 05:23 MCV MCH MCHC RDW Plt Count MPV Absolute Nucleated RBC Nucleated RBC % (auto) Anion Gap Estim Creat Clear Calc Estimated GFR Fasting Glucose Calcium C-Reactive Protein 14.17 H JAVI Titer TNP JAVI Titer 2 TNP JAVI Titer 3 TNP JAVI Pattern TNP JAVI Pattern 2 TNP JAVI Pattern 3 TNP Hepatitis A IgM Ab Nonreactive Hep Bs Antigen Negative Hep Bs Antibody NONREACTIVE Hep B Core Total Ab Nonreactive Hepatitis C Ab (EIA) Nonreactive HIV 1&2 Ab/P24 Ag 4thGn Nonreactive 05/13/22 05/13/22 05:24 05:24 MCV 79.6 L MCH 25.5 L MCHC 32.1 RDW 27.8 H Plt Count 207 MPV 9.4 Absolute Nucleated RBC 0.020 H Nucleated RBC % (auto) 0.1 Anion Gap 13 Estim Creat Clear Calc 66.9 Estimated GFR > 60 Fasting Glucose 94 Calcium 6.9 L D C-Reactive Protein JAVI Titer JAVI Titer 2 JAVI Titer 3 JAVI Pattern JAVI Pattern 2 JAVI Pattern 3 Hepatitis A IgM Ab Hep Bs Antigen Hep Bs Antibody Hep B Core Total Ab Hepatitis C Ab (EIA) HIV 1&2 Ab/P24 Ag 4thGn Microbiology Microbiology Results: Microbiology 05/09/22 02:30 Stool Culture - Final Stool Assessment and Plan (1) Colitis: Status: Acute (2) BRBPR (bright red blood per rectum): Status: Acute (3) Sepsis: Status: Acute (4) Lactic acidosis: Status: Acute (5) Hypokalemia: Status: Acute (6) Edema: Status: Acute Plan 77F presented with abd pain, brbpr severe sepsis present on admission due to likely worsening ischemic colitis complicated by bacterial superinfection vs ulcerative colitis continue rocephin, flagyl gentle iv hydration continue empiric mesalamine, s/p sigmoidoscopy and biopsy today 05/11/22 - Chronic, severely active, colitis; no dysplasia or granulomata identified. Pending repeat CT abd, if more consistent with UC and no evidence of abscess on CT, may be role for steroids pending T spot GI input appreciated, start solumedrol 20 mg q8hr IV for at least 48 hrs, may have to consider remicade if repeat CT is negative for abscess, perforation Patient might need surgical resection given severity of the disease. Surgical team following chronic anemia inflammatory and chronic blood loss from colitis edema/anasarca due to GI protein wasting and chronic inflammation, no signs of acute CHF hypokalemia Replacement given Monitor BMP anxiety p.r.n. ativan dvt prophylaxis mechanical due to gi bleeding full code reason for continued hospitalization: ongoing work up and treatement for colitis, needing iv fluids, iv abx, and close monitoring. Quality Stroke Does the patient have a stroke diagnosis?: No VTE Prior VTE?: No VTE Risk Level:: Medical - moderate - high VTE Device Contraindication: N/A - Device Ordered VTE Drug Contraindication: Treatment Not Indicated
[2022-05-13] MEDS: Lactated Ringers 1,000 ML 80 ML IVCONT ×2 (13:05→23:59)
--- NOTE | 2022-05-13 14:54 | PM.PNGS ---
Subjective Subjective Date of Service: 05/13/22 Interval history: Patient reports feeling okay, still some tenderness in the left lower quadrant Physical Exam Vital Signs: Vital Signs: Last Vital Signs Temp 97.7 F 05/13/22 10:52 Pulse 109 H 05/13/22 11:52 Resp 18 05/13/22 10:52 BP 91/61 05/13/22 11:52 Pulse Ox 96 05/13/22 11:52 O2 Del Method 05/13/22 11:00 O2 Flow Rate 2 05/11/22 11:43 BMI result Body Mass Index 32.9 Const: General: no acute distress Nutritional Appearance: well nourished Orientation/consciousness: patient oriented x3 Limitations: no limitations Resp: Effort & Inspection: normal respiratory effort GI: Other: soft, tender in the LUQ and LLQ. No rebound or guarding. Skin: Other: warm and dry Neuro: General: patient oriented x3 Extrem: Other: brisk cap refill Objective Data Active Medications Acetaminophen (Acetaminophen 325 Mg Tablet) 650 mg PO Q6H PRN PRN Reason: Pain, Mild (Pain Scale 1-3) Last Admin: 05/12/22 21:27 Dose: 650 mg Documented By: ANTIONETTE Hydromorphone HCl (Hydromorphone Hcl 1 Mg/Ml Syringe) 0.5 mg IVPUSH Q4H PRN; Protocol PRN Reason: Pain, Severe (Pain Scale 7-10) Last Admin: 05/11/22 18:00 Dose: 0.5 mg Documented By: WEI Ceftriaxone Sodium 1 gm/ (Sodium Chloride) 50 mls @ 100 mls/hr IV Q24H [facility] Last Infusion: 05/12/22 21:31 Dose: 0 mls/hr Documented By: ANTIONETTE Metronidazole (Flagyl) 500 mg in 100 mls @ 100 mls/hr IV Q8H [facility] Last Infusion: 05/13/22 14:34 Dose: 0 mls/hr Documented By: BECCA Lactated Ringer's (Lr) 1,000 mls @ 80 mls/hr IVCONT .[id number] [facility] Last Admin: 05/13/22 13:05 Dose: 80 mls/hr Documented By: BECCA Lorazepam (Lorazepam 1 Mg Tablet) 1 mg PO BEDTIME PRN PRN Reason: Anxiety Last Admin: 05/12/22 21:27 Dose: 1 mg Documented By: ANTIONETTE Mesalamine (Mesalamine 400 Mg Cap.Drtab.) 1,600 mg PO QID [facility] Last Admin: 05/13/22 13:10 Dose: 1,600 mg Documented By: BECCA Methylprednisolone Sodium Succinate (Methylprednisolone Sod Succ 40 Mg/Ml Vial) 20 mg IVPUSH Q8H [facility] Multivitamins/Vitamin C (Multivitamin Tablet) 1 tab PO DAILY [facility] Last Admin: 05/13/22 09:47 Dose: 1 tab Documented By: BECCA Omeprazole (Omeprazole 20 Mg Capsule.Dr) 20 mg PO DAILY@0630 [facility] Last Admin: 05/13/22 05:37 Dose: 20 mg Documented By: ANTIONETTE Sodium Chloride (0.9 % Sodium Chloride Flush 3 Ml Syringe) 3 ml IVFLUSH QSHIFT [facility] Last Admin: 05/13/22 09:45 Dose: Not Given Documented By: BECCA Non-Admin Reason: IV Running Labs CBC & Chem 7: 05/13/22 05:24 05/13/22 05:24 Labs: Laboratory Results - last 24 hr 05/08/22 05/12/22 05/13/22 18:35 21:14 05:23 MCV MCH MCHC RDW Plt Count MPV Absolute Nucleated RBC Nucleated RBC % (auto) Anion Gap Estim Creat Clear Calc Estimated GFR Fasting Glucose Calcium C-Reactive Protein 14.17 H JAVI Titer TNP JAVI Titer 2 TNP JAVI Titer 3 TNP JAVI Pattern TNP JAVI Pattern 2 TNP JAVI Pattern 3 TNP Hepatitis A IgM Ab Nonreactive Hep Bs Antigen Negative Hep Bs Antibody NONREACTIVE Hep B Core Total Ab Nonreactive Hepatitis C Ab (EIA) Nonreactive HIV 1&2 Ab/P24 Ag 4thGn Nonreactive 05/13/22 05/13/22 05:24 05:24 MCV 79.6 L MCH 25.5 L MCHC 32.1 RDW 27.8 H Plt Count 207 MPV 9.4 Absolute Nucleated RBC 0.020 H Nucleated RBC % (auto) 0.1 Anion Gap 13 Estim Creat Clear Calc 66.9 Estimated GFR > 60 Fasting Glucose 94 Calcium 6.9 L D C-Reactive Protein JAVI Titer JAVI Titer 2 JAVI Titer 3 JAVI Pattern JAVI Pattern 2 JAVI Pattern 3 Hepatitis A IgM Ab Hep Bs Antigen Hep Bs Antibody Hep B Core Total Ab Hepatitis C Ab (EIA) HIV 1&2 Ab/P24 Ag 4thGn Imaging CT scan - abdomen: My impression: Radiology report still pending. To my reading of the CT: Improving colitis in descending and sigmoid colon, small fluid collection adjacent to sigmoid colon with air, question small abscess. Await final reading. Procedures Date of Service Date of Service: 05/13/22 Progress Note: A&P Assessment and plan (1) Colitis: Status: Acute Plan Patient appears to have UC, awaiting final read of CT. Plan is for Solu-Medrol as per GI consult. Will continue to monitor. Time Spent With Patient Time: Total time spent is greater than 50% in coordination of care (as documented) at patient's floor/unit and/or counseling patient: Quality Stroke Does the patient have a stroke diagnosis?: No VTE Prior VTE?: No VTE Risk Level:: Medical - moderate - high VTE Device Contraindication: N/A - Device Ordered VTE Drug Contraindication: Treatment Not Indicated
--- NOTE | 2022-05-13 15:19 | MHC.CLN ---
NUTRITION NUTRITION CONSULT FOR COLITIS/NUTRITIONAL RISK. DIET=REGULAR, BLAND. ENSURE CLEAR TID PROVIDES ADDITIONAL 720 KCALS, 24 G PROTEIN. PATIENT LIKES AND TOLERATES ENSURE CLEAR. VISITED AFTER LUNCH AND REPORTED THAT HAD NOT EATEN MUCH. SIGMOIDOSCOPY AND BIOPSY 05/11 WITH RESULTS PENDING. PATIENT WITH CHRONIC COLITIS AND SEVERE SEPSIS. ANTICIPATE IMPROVED NUTRITIONAL STATUS IF TOLERATES SOLIDS AND CONTINUES SUPPLEMENT. FOLLOW FOR INTAKE AND DIET TOLERANCE.
[2022-05-13] MEDS: 0.9 % Sodium Chloride Flush 3 ML SYRINGE IVFLUSH (15:35)
[2022-05-13] MEDS: methylPREDNISolone Sod Succ 40 MG/ML VIAL 20 MG IVPUSH (15:35)
[2022-05-13] MEDS: cefTRIAXone sodium 1 GM in 0.9 % Sodium Chloride 50 ML IV (19:25)
[2022-05-14 03:00] VITALS: BP 112/68; PULSE 92; RESP 17; TEMP 36.4; O2SAT 97
[2022-05-14] MEDS: metroNIDAZOLE/NS 500 MG/100 ML PIGGYBACK 100 MG IV ×3 (04:04→20:11)
[2022-05-14] MEDS: Omeprazole 20 MG CAPSULE.DR PO (05:23)
[2022-05-14 06:27] LABS: Hematocrit 29.3 % (37.0-47.0); Hemoglobin 9.4 g/dl (12.0-16.0); Mean Corpuscular HGB Conc 32.1 g/dl (31.0-35.0); Mean Corpuscular Hemoglobin 25.5 pg (27.0-33.0); Mean Corpuscular Volume 79.6 fL (80.0-98.0); Mean Platelet Volume 9.2 fL (9.4-12.3); NRBC Pct Auto 0.1 /100WBC (0.0-0.2); Platelet Count 224 X10*3/uL (160-400); Red Blood Count 3.68 X10*6/uL (4.20-5.50); Red Cell Distribution Width 27.9 % (11.0-16.0)
[2022-05-14 06:38] LABS: White Blood Count 31.1 X10*3/uL (4.8-10.8)
--- NOTE | 2022-05-14 06:39 | MHC.PIE ---
p; wbc 31.1 i; dr newberry notified e; will cont to monitor
[2022-05-14 07:15] LABS: Anion Gap 13 (12-20); Blood Urea Nitrogen 18 mg/dL (9-16); Carbon Dioxide 19 mmol/L (22-29); Chloride 101 mmol/L (96-108); Creatinine Clr Calc Pharmacy 71.1; Estimated Glomerular Filt Rate > 60; Glucose Random 131 mg/dL (60-115); Potassium 3.7 mmol/L (3.3-5.1); Sodium 129 mmol/L (135-145)
[2022-05-14 07:27] VITALS: BP 115/81; PULSE 115; RESP 20; TEMP 36.1; O2SAT 94
[2022-05-14] MEDS: Multivitamin TABLET 1 TAB PO (07:49)
[2022-05-14] MEDS: Mesalamine 400 MG CAP.DRTAB. 1600 MG PO ×4 (07:49→20:15)
[2022-05-14] MEDS: 0.9 % Sodium Chloride 1,000 ML 80 ML IVCONT (07:49)
--- NOTE | 2022-05-14 08:06 | P.PNGS_ITS ---
Subjective Subjective Date of Service: 05/14/22 Interval history: Patient reports a large bowel movement this morning, abdominal pain on the left side is improved. She does have some pain on the right side. She tolerated liquids and denies nausea or vomiting. Physical Exam Vital Signs: Vital Signs: Last Vital Signs Temp 96.9 F 05/14/22 07:27 Pulse 115 H 05/14/22 07:27 Resp 20 05/14/22 07:27 BP 115/81 05/14/22 07:27 Pulse Ox 94 05/14/22 07:27 O2 Del Method 05/14/22 07:27 O2 Flow Rate 2 05/14/22 03:00 BMI result Body Mass Index 32.9 Const: General: no acute distress Nutritional Appearance: well nourished Orientation/consciousness: patient oriented x3 Resp: Effort & Inspection: normal respiratory effort, no audible wheezes, no cough and no respiratory distress GI: Palpation (GI): Soft to palpation, Tenderness to palpation present (GI) in the RUQ; with no rebound tenderness, no guarding and not rigid Rectal Exam - Female: deferred Skin: Other: Warm, dry Neuro: General: patient oriented x3 Extrem: General: Yes capillary refill normal Objective Data Active Medications Acetaminophen (Acetaminophen 325 Mg Tablet) 650 mg PO Q6H PRN PRN Reason: Pain, Mild (Pain Scale 1-3) Last Admin: 05/12/22 21:27 Dose: 650 mg Documented By: ANTIONETTE Ceftriaxone Sodium 1 gm/ (Sodium Chloride) 50 mls @ 100 mls/hr IV Q24H [facility] Last Infusion: 05/13/22 20:00 Dose: 0 mls/hr Documented By: TYLER Metronidazole (Flagyl) 500 mg in 100 mls @ 100 mls/hr IV Q8H [facility] Last Infusion: 05/14/22 05:20 Dose: 0 mls/hr Documented By: TYLER Sodium Chloride (Ns) 1,000 mls @ 80 mls/hr IVCONT .[id number] [facility] Last Admin: 05/14/22 07:49 Dose: 80 mls/hr Documented By: COTEMA Mesalamine (Mesalamine 400 Mg Cap.Drtab.) 1,600 mg PO QID [facility] Last Admin: 05/14/22 07:49 Dose: 1,600 mg Documented By: SIOBHAN Multivitamins/Vitamin C (Multivitamin Tablet) 1 tab PO DAILY [facility] Last Admin: 05/14/22 07:49 Dose: 1 tab Documented By: SIOBHAN Omeprazole (Omeprazole 20 Mg Capsule.) 20 mg PO DAILY@0630 [facility] Last Admin: 05/14/22 05:23 Dose: 20 mg Documented By: TYLER Sodium Chloride (0.9 % Sodium Chloride Flush 3 Ml Syringe) 3 ml IVFLUSH QSHIFT [facility] Last Admin: 05/14/22 07:22 Dose: Not Given Documented By: SIOBHAN Non-Admin Reason: IV Running Labs CBC & Chem 7: 05/14/22 05:25 05/14/22 05:25 Labs: Laboratory Results - last 24 hr 05/13/22 05/14/22 05/14/22 05:23 05:25 05:25 MCV 79.6 L MCH 25.5 L MCHC 32.1 RDW 27.9 H Plt Count 224 MPV 9.2 L Absolute Nucleated RBC 0.020 H Nucleated RBC % (auto) 0.1 Anion Gap 13 Estim Creat Clear Calc 71.1 Estimated GFR > 60 Random Glucose 131 H Calcium 7.0 L Hepatitis A IgM Ab Nonreactive Hep Bs Antigen Negative Hep Bs Antibody NONREACTIVE Hep B Core Total Ab Nonreactive Hepatitis C Ab (EIA) Nonreactive HIV 1&2 Ab/P24 Ag 4thGn Nonreactive Microbiology Microbiology Results: Microbiology 05/08/22 18:33 Blood Culture - Final Blood - Venous No growth after 5 days. 05/08/22 18:33 Blood Culture - Final Blood - Venous No growth after 5 days. Procedures Date of Service Date of Service: 05/14/22 Progress Note: A&P Assessment and plan (1) Colitis: Status: Acute Plan Patient received a single dose of steroids yesterday, WBC now elevated to 31. Clinically the patient does appear improved with decreased tenderness on exami nation especially on the left side. Review of the CT seems more consistent with diverticulitis with micro perforation there for would hold off on further steroids continue antibiotics. The elevated WBC is of concern but probably is a result steroid. Will need to monitor and trend. Discussed the possibility of surgery with the patient and she is not interested in pursuing this option. Discussed with Dr. Villegas. Time Spent With Patient Time: Total time spent is greater than 50% in coordination of care (as documented) at patient's floor/unit and/or counseling patient: Quality Stroke Does the patient have a stroke diagnosis?: No VTE Prior VTE?: No VTE Risk Level:: Medical - moderate - high VTE Device Contraindication: N/A - Device Ordered VTE Drug Contraindication: Treatment Not Indicated
[2022-05-14 08:57] VITALS: BP 115/81; PULSE 115; O2SAT 94
--- NOTE | 2022-05-14 09:33 | PM.GIPN ---
Subjective Subjective Date of Service: 05/14/22 Interval History: minimal abdominal pain no nausea appetite is fair passing gas and stool CT with micro perforation may have been caused by sigmoidoscopy, ascites, diffuse edema Critical Care Time (minutes): 0 Physical Exam Vital Signs: Vital Signs: Last Vital Signs Temp 96.9 F 05/14/22 07:27 Pulse 115 H 05/14/22 08:57 Resp 20 05/14/22 07:27 BP 115/81 05/14/22 08:57 Pulse Ox 94 05/14/22 08:57 O2 Del Method 05/14/22 07:27 O2 Flow Rate 2 05/14/22 03:00 BMI result Body Mass Index 32.9 EXAM: GENERAL: The patient is relaxed VITAL SIGNS:see workflow HEENT: Nonicteric sclerae, PERRLA, EOMI. Oropharynx clear. Moist mucous membranes. Conjunctivae appear well perfused. No thyroid mass. CHEST: Chest wall is nontender. HEART: Regular rate and rhythm without murmurs. LUNGS: Clear to auscultation bilaterally. ABDOMEN: Soft, reduced bowel sounds, nontender, no organomegaly.no flank tenderness SKIN: No rash, no excessive bruising, petechiae, or purpura. NEUROLOGIC: Cranial nerves II-XII intact without motor/sensory deficit. Psych- nml affect Objective Data Labs CBC & Chem 7: 05/15/22 23:43 05/15/22 23:43 Labs: Laboratory Results - last 24 hr 05/13/22 05/14/22 05/14/22 05:23 05:25 05:25 WBC 31.1 H* RBC 3.68 L Hgb 9.4 L Hct 29.3 L MCV 79.6 L MCH 25.5 L MCHC 32.1 RDW 27.9 H Plt Count 224 MPV 9.2 L Absolute Nucleated RBC 0.020 H Nucleated RBC % (auto) 0.1 Sodium 129 L Potassium 3.7 Chloride 101 Carbon Dioxide 19 L Anion Gap 13 BUN 18 H Creatinine 0.63 Estim Creat Clear Calc 71.1 Estimated GFR > 60 Random Glucose 131 H Calcium 7.0 L C-Reactive Protein 10.80 H Hepatitis A IgM Ab Nonreactive Hep Bs Antigen Negative Hep Bs Antibody NONREACTIVE Hep B Core Total Ab Nonreactive Hepatitis C Ab (EIA) Nonreactive HIV 1&2 Ab/P24 Ag 4thGn Nonreactive Microbiology Microbiology Results: Microbiology 05/08/22 18:33 Blood - Venous Blood Culture - Final No growth after 5 days. 05/08/22 18:33 Blood - Venous Blood Culture - Final No growth after 5 days. 05/09/22 02:30 Stool Stool Culture - Final Procedures Date of Service Date of Service: 05/14/22 Progress Note: A&P Assessment and plan (1) Colitis: Status: Acute Plan 1/ Colitis, more likely UC based on path, may have had microperf from sigmoidoscopy, but clinically stable 2/ severe malnutrition with v low albumin PLAN: 1/ check with Dr Javier--when can restart steroids, cRP did come down and she felt it helped 2/ consider TPn or PPN given her severe malnutrition Time Spent With Patient Time: Total time spent is greater than 50% in coordination of care (as documented) at patient's floor/unit and/or counseling patient: Quality Stroke Does the patient have a stroke diagnosis?: No VTE Prior VTE?: No VTE Risk Level:: Medical - moderate - high VTE Device Contraindication: N/A - Device Ordered VTE Drug Contraindication: Treatment Not Indicated
[2022-05-14 11:33] VITALS: BP 95/69; PULSE 127; RESP 18; TEMP 36.9; O2SAT 96
[2022-05-14] MEDS: methylPREDNISolone Sod Succ 40 MG/ML VIAL 20 MG IVPUSH ×2 (11:38→17:59)
--- NOTE | 2022-05-14 13:08 | P.PNIM_ITS ---
Subjective Subjective Date of Service: 05/14/22 Interval History: the patient was seen and evaluated this morning Laying in bed, feels Mild improvement and tolerating diet Had physical therapy session Denies any fever, chills or nausea or vomiting No reported other overnight events. Systemic review: No fever, chills or weakness No chest pain, palpitation , has edema in lower extremities No shortness of breath or coughing improved abdominal pain, but no more nausea or vomiting No urinary symptoms No any rash or wounds Physical Exam Vital Signs: Vital Signs: Last Vital Signs Temp 98.4 F 05/14/22 11:33 Pulse 127 H 05/14/22 11:33 Resp 18 05/14/22 11:33 BP 95/69 05/14/22 11:33 Pulse Ox 96 05/14/22 11:33 O2 Del Method 05/14/22 11:33 O2 Flow Rate 2 05/14/22 03:00 BMI result Body Mass Index 32.9 Const: Other: Constitutional : Alert, oriented, not in distress Neck : Normal inspection, Supple Cardiovascular : RRR, no JVP, +2 bilateral lower extremity edema Respiratory : fair bilateral air entry, no crackles, wheezes or rhonchi Gastrointestinal: soft, lax, decreased bowel sounds, mild epigastric and periumbilical tenderness with no surgical signs Skin : Warm, Dry Neurological : Alert & oriented x3, No focal deficit , CN 2-12 within normal Objective Data Active Medications Acetaminophen (Acetaminophen 325 Mg Tablet) 650 mg PO Q6H PRN PRN Reason: Pain, Mild (Pain Scale 1-3) Last Admin: 05/12/22 21:27 Dose: 650 mg Documented By: ANTIONETTE Ceftriaxone Sodium 1 gm/ (Sodium Chloride) 50 mls @ 100 mls/hr IV Q24H [facility] Last Infusion: 05/13/22 20:00 Dose: 0 mls/hr Documented By: TYLER Metronidazole (Flagyl) 500 mg in 100 mls @ 100 mls/hr IV Q8H [facility] Last Infusion: 05/14/22 12:41 Dose: 0 mls/hr Documented By: SIOBHAN Sodium Chloride (Ns) 1,000 mls @ 80 mls/hr IVCONT .[id number] [facility] Last Admin: 05/14/22 07:49 Dose: 80 mls/hr Documented By: HO.COTEMA Mesalamine (Mesalamine 400 Mg Cap.Drtab.) 1,600 mg PO QID [facility] Last Admin: 05/14/22 11:39 Dose: 1,600 mg Documented By: SIOBHAN Methylprednisolone Sodium Succinate (Methylprednisolone Sod Succ 40 Mg/Ml Vial) 20 mg IVPUSH Q8H [facility] Last Admin: 05/14/22 11:38 Dose: 20 mg Documented By: SIOBHAN Multivitamins/Vitamin C (Multivitamin Tablet) 1 tab PO DAILY [facility] Last Admin: 05/14/22 07:49 Dose: 1 tab Documented By: SIOBHAN Omeprazole (Omeprazole 20 Mg Capsule.Dr) 20 mg PO DAILY@0630 [facility] Last Admin: 05/14/22 05:23 Dose: 20 mg Documented By: TYLER Sodium Chloride (0.9 % Sodium Chloride Flush 3 Ml Syringe) 3 ml IVFLUSH QSHIFT [facility] Last Admin: 05/14/22 07:22 Dose: Not Given Documented By: SIOBHAN Non-Admin Reason: IV Running Labs CBC & Chem 7: 05/14/22 05:25 05/14/22 05:25 Labs: Laboratory Results - last 24 hr 05/14/22 05/14/22 05:25 05:25 MCV 79.6 L MCH 25.5 L MCHC 32.1 RDW 27.9 H Plt Count 224 MPV 9.2 L Absolute Nucleated RBC 0.020 H Nucleated RBC % (auto) 0.1 Anion Gap 13 Estim Creat Clear Calc 71.1 Estimated GFR > 60 Random Glucose 131 H Calcium 7.0 L C-Reactive Protein 10.80 H Microbiology Microbiology Results: Microbiology 05/08/22 18:33 Blood Culture - Final Blood - Venous No growth after 5 days. 05/08/22 18:33 Blood Culture - Final Blood - Venous No growth after 5 days. Assessment and Plan (1) Edema: Status: Acute (2) Hypokalemia: Status: Acute (3) Hypernatremia: Status: Acute Plan 77F presented with abd pain, brbpr Ulcerative vs ischemic colitis complicated by superinfection s/p sigmoidoscopy and biopsy today 05/11/22 - Chronic, severely active, colitis; no dysplasia or granulomata identified. repeat CT abd, no evidence of abscess on CT continue rocephin, flagyl D6 start steroids gentle iv hydration continue mesalamine, Advanced diet to regular, planned pending T spot Follow CRP daily GI input appreciated, start solumedrol 20 mg q8hr IV for at least 48 hrs Patient might need surgical resection given severity of the disease. Surgical team following acute hyponatremia Sodium went down to 129 Likely secondary to IVF of LR Changed to NS and follow BMP Physical deconditioning To do physical therapy Leukocytosis Likely reactive to steroid usage and ongoing infection Monitor CBC daily and follow CRP chronic anemia inflammatory and chronic blood loss from colitis edema/anasarca due to GI protein wasting and chronic inflammation, no signs of acute CHF hypokalemia Replacement given Monitor BMP anxiety p.r.n. ativan dvt prophylaxis mechanical due to gi bleeding full code reason for continued hospitalization: ongoing work up and treatement for colitis, needing iv fluids, iv abx, and close monitoringTo prevent possible to compensation into severe sepsis or need surgical intervention. Quality Stroke Does the patient have a stroke diagnosis?: No VTE Prior VTE?: No VTE Risk Level:: Medical - moderate - high VTE Device Contraindication: N/A - Device Ordered VTE Drug Contraindication: Treatment Not Indicated
[2022-05-14 15:15] LABS: Anion Gap 20 (12-20); Blood Urea Nitrogen 18 mg/dL (9-16); Calcium 7.2 mg/dL (8.4-10.2); Carbon Dioxide 15 mmol/L (22-29); Chloride 99 mmol/L (96-108); Creatinine Clr Calc Pharmacy 54.7; Estimated Glomerular Filt Rate > 60; Glucose Random 114 mg/dL (60-115); Potassium 3.9 mmol/L (3.3-5.1); Sodium 130 mmol/L (135-145)
[2022-05-14 15:23] VITALS: BP 99/56; PULSE 125; RESP 18; TEMP 36.9; O2SAT 96
[2022-05-14] MEDS: Furosemide 20 MG/2 ML VIAL 10 MG IVPUSH (16:38)
[2022-05-14] MEDS: Sodium Bicarbonate 8.4% 50 MEQ/50 ML SYRINGE IVPUSH (17:59)
[2022-05-14] MEDS: cefTRIAXone sodium 1 GM in 0.9 % Sodium Chloride 50 ML IV (19:31)
[2022-05-14 19:43] VITALS: BP 99/67; PULSE 106; RESP 18; TEMP 36.3; O2SAT 98
[2022-05-14] MEDS: 0.9 % Sodium Chloride Flush 3 ML SYRINGE IVFLUSH (20:12)
[2022-05-14] MEDS: oxyCODONE HCl Immed Release 5 MG TABLET PO (21:33)
[2022-05-15] VITALS (60 sets, daily range): BP systolic 59–139; BP diastolic 32–99; PULSE 16–129; RESP 12–40; TEMP 34–36.7; O2SAT 6–347; BMI 32.9
--- NOTE | 2022-05-15 | ECG_ITS ---
Test Reason : cp Blood Pressure : / mmHG Vent. Rate : 118 BPM Atrial Rate : 118 BPM P-R Int : 132 ms QRS Dur : 080 ms QT Int : 334 ms P-R-T Axes : 029 -18 114 degrees QTc Int : 468 ms Sinus tachycardia Low voltage QRS Possible Anterolateral infarct (cited on or before 21-APR-2022) Abnormal ECG When compared with ECG of 08-MAY-2022 19:38, Premature ventricular complexes are no longer Present Questionable change in initial forces of Lateral leads Referred By: Genna King Electronically Signed By:Azam Cartagena
[2022-05-15] MEDS: Morphine Sulfate 4 MG/ML CARTRIDGE IVPUSH (01:25)
[2022-05-15] MEDS: Furosemide 40 MG/4 ML VIAL IVPUSH (01:25)
[2022-05-15 01:28] LABS: Glucose, Whole Blood 69 mg/dL (60-115)
[2022-05-15] MEDS: Dextrose 50 % 25 GM/50 ML SYRINGE IVPUSH ×2 (01:35→19:38)
[2022-05-15 01:47] LABS: Glucose, Whole Blood 170 mg/dL (60-115)
[2022-05-15 02:17] LABS: Hematocrit 37.9 % (37.0-47.0); Hemoglobin 11.4 g/dl (12.0-16.0); Mean Corpuscular HGB Conc 30.1 g/dl (31.0-35.0); Mean Corpuscular Hemoglobin 25.7 pg (27.0-33.0); Mean Corpuscular Volume 85.4 fL (80.0-98.0); Mean Platelet Volume 9.4 fL (9.4-12.3); NRBC Pct Auto 0.2 /100WBC (0.0-0.2); Platelet Count 308 X10*3/uL (160-400); Red Blood Count 4.44 X10*6/uL (4.20-5.50); Red Cell Distribution Width 28.9 % (11.0-16.0)
--- NOTE | 2022-05-15 02:30 | PM.EVENT ---
Event Note Date of Service: 05/15/22 Event Note: A rapid response was called on the patient around 01:20 due to respiratory distress, hypoxia, on my arrival to patient's room patient was lethargic, satting 75%. Respiratory therapist placed patient on non-rebreather, with no significant improvement in her oxygenation. Patient noted to have significant lower extremity edema, was also on fluids throughout the day, and has received 10 mg of Lasix in the evening with no response, therefore 40 mg of IV Lasix was given, chest x-ray obtained, ABG ordered, chest x-ray showed pleural effusion with no significant consolidation. ABG pending. Patient continues to be lethargic, with respiratory rate ranging between 30-35 per minute despite morphine. Other significant vitals include hypotension with a blood pressure of 80/50, patient has very poor access, were unable to obtain adequate peripheral access for IV resuscitation. Alert bolus ordered, but unable to give due to poor peripheral access. case was discussed with ICU team including ICU physician as well as PA, patient will be transferred to the ICU. Currently on high-flow satting 100%, with respiratory rate on the 30s. Lethargic, arousable. Albumin has also been ordered as patient's albumin is 2.1. Neurologically intact,
[2022-05-15 02:31] LABS: ABG Base Excess -16.7 mmol/L; ABG HCO3 6 mmol/L (22-26); ABG pCO2 12 mmHg (32-45); ABG pH 7.31 (7.35-7.45); ABG pO2 488 mmHg (83-108)
[2022-05-15 02:31] LABS: White Blood Count 34.6 X10*3/uL (4.8-10.8)
[2022-05-15 02:38] LABS: Alanine Aminotransferase 23 U/L (0-31); Albumin Level 1.6 g/dL (3.5-5.0); Alkaline Phosphatase 287 U/L (39-117); Anion Gap 26 (12-20); Aspartate Amino Transferase 65 U/L (5-31); Bilirubin Total 0.6 mg/dL (0.0-1.0); Blood Urea Nitrogen 19 mg/dL (9-16); Calcium 7.5 mg/dL (8.4-10.2); Carbon Dioxide 11 mmol/L (22-29); Chloride 97 mmol/L (96-108); Creatinine Clr Calc Pharmacy 31.8; Estimated Glomerular Filt Rate 36; Glucose Random 165 mg/dL (60-115); Potassium 4.6 mmol/L (3.3-5.1); Sodium 129 mmol/L (135-145); Total Protein 4.5 g/dL (6.5-8.0)
[2022-05-15 02:40] LABS: Band Neutrophils Percent 10 % (3-5); Lymphocytes Absolute Manual 0.3 X10*3/uL (1.2-4.9); Lymphocytes Percent Manual 1 % (20-40); Metamyelocytes Absolute 0.3 X10*3/uL; Metamyelocytes Percent 1 %; Monocytes Absolute Manual 0.3 X10*3/uL (0.1-1.2); Monocytes Percent Manual 1 % (2-11); Neutrophils Absolute Manual 33.6 X10*3/uL (2.0-8.3); Neutrophils Percent Manual 87 % (45-73)
[2022-05-15 02:41] LABS: Hypochromasia 1+ (5-14) /OIF; Macrocytosis 1+ (5-14) /OIF; Microcytosis 1+ (5-14) /OIF; Platelet Estimate NORMAL (NORMAL); Platelet Morphology Comment NORMAL; RBC Morphology NOTED
[2022-05-15 02:42] LABS: ABG Refer to POC result
[2022-05-15 02:42] LABS: Polychromasia 1+ (0-2) /OIF; Toxic Granulation PRESENT; Toxic Vacuolation PRESENT
[2022-05-15 02:43] LABS: B Type Natriuretic Peptide 594 pg/mL (<100)
[2022-05-15 02:45] LABS: Troponin-I High Sensitivity 25.6 ng/L (<3.5-17.0)
--- NOTE | 2022-05-15 02:55 | PC.NURSE ---
0115 Pt c/o sob resp 40.o2 2L applied.o2 sats 80's.rapid response called.Bp-92/41 HR-117.stat cxr ordered.stat lasix 40mg iv given,morphine 4mg iv given.POC-69 1 amp D50% given.repeat poc after 15 min 170.Pt put on BiPAP sating 98%.Pt placed on high flow oxygen o2 sat 100%.resp rate in 30's.pt transfered to ICU to be intubated.
[2022-05-15] MEDS: propofoL 1,000 MG/100 ML VIAL 9.49 MG IVCONT ×3 (03:30→18:38)
[2022-05-15 04:14] LABS: Reflex Lactate? Lactic Acid Added
--- NOTE | 2022-05-15 04:18 | W.PM.CCCN ---
History of Present Illness Data of Consult Service Date: 05/15/22 Primary Care Provider: Jesse Sommer MD [facility] Reason for consult: respiratory distress 77-year-old female with a past medical history of hypertension, Congestive heart failure, anxiety who? presented to the? emergency department on 05/08/22 with a chief complaint of abdominal pain.? She was admitted to Hospital Medicine,? with ulcerative colitis versus? ischemic colitis complicated by superinfection. She is s/p sigmoidoscopy and biopsy on 05/11/[address] Kwon, which showed chronic, severely active, colitis; no dysplasia or granulomata identified and placed on steroids. On 05/14/22 patient WBC increased to 30, General surgery Dr Javier assessed the patient and reviewed the CT scan. He stated, CT seems more consistent with diverticulitis with micro perforation and advised to Dc steroids and? continue antibiotics. ? Patient? also stated she was not interested in pursuing surgery.? ?Tonight,? patient acutely became hypoxic,? respiratory rate? in the 40s,? and drop blood pressures to systolic of 70s.? ? Laboratory data was significant? ABGs as follow: 7.31//488/6.? WBC 34.6, sodium 129, bicarb 11, BUN 19, creatinine 1.41, lactic 14.0, calcium 7.5,? BNP 594, albumin 1.6.? ?When I went to assess the patient,? the patient wanted everything to be done? including surgery.? ?She was transferred to ICU and intubated immediately? and central line placed Review of Systems Constitutional: Constitutional: Denies fever(s) and Denies headache(s) ENT: Denies dizziness and Denies headache(s) Cardiovascular: Cardiovascular: Denies chest pain, Reports leg edema and Reports dyspnea Respiratory: Respiratory: Denies cough and Reports dyspnea Gastrointestinal: Gastrointestinal: Denies diarrhea, Reports nausea and Denies vomiting Musculoskeletal: Musculoskeletal: Denies myalgias Neurologic: Denies dizziness and Denies headache(s) [facility] Past Medical History Medical History Hypertension Functional capacity: independent ambulation Social History Social History Household Members: Spouse Housing: House Do you presently have visiting nurse or other home services: No Alcohol intake: never Patient Tobacco Use Status: Former Tobacco user Second Hand Smoke Exposure: No service: No Current occupational status: retired Current occupational exposures/hazards: No Meds Allergies Allergy/AdvReac Type Severity Reaction Status Date / Time Fish Containing Products Allergy Unknown HIVES TO Verified 04/21/22 14:16 COD Penicillins [PENICILLINS] Allergy Unknown UNKNOWN Verified 04/21/22 14:16 Sulfa (Sulfonamide Allergy Unknown HIVES Verified 04/21/22 14:16 Antibiotics) [SULFA (SULFONAMIDE ANTIBIOTICS)] sulfamethoxazole Allergy Unknown HIVES Verified 04/21/22 14:16 [From BACTRIM] trimethoprim [From BACTRIM] Allergy Unknown HIVES Verified 04/21/22 14:16 Active Medications: Current Medications Acetaminophen (Acetaminophen 325 Mg Tablet) 650 mg PO Q6H PRN PRN Reason: Pain, Mild (Pain Scale 1-3) Last Admin: 05/12/22 21:27 Dose: 650 mg Ceftriaxone Sodium 1 gm/ (Sodium Chloride) 50 mls @ 100 mls/hr IV Q24H [facility] Last Infusion: 05/14/22 20:31 Dose: Infused Metronidazole (Flagyl) 500 mg in 100 mls @ 100 mls/hr IV Q8H [facility] Last Infusion: 05/14/22 21:36 Dose: Infused Norepinephrine Bitartrate (Levophed) 8 mg in 250 mls @ 0 mls/hr IVCONT .Q0M [facility]; Protocol Mesalamine (Mesalamine 400 Mg Cap.Drtab.) 1,600 mg PO QID [facility] Last Admin: 05/14/22 20:15 Dose: 1,600 mg Methylprednisolone Sodium Succinate (Methylprednisolone Sod Succ 40 Mg/Ml Vial) 20 mg IVPUSH Q8H [facility] Last Admin: 05/14/22 17:59 Dose: 20 mg Multivitamins/Vitamin C (Multivitamin Tablet) 1 tab PO DAILY [facility] Last Admin: 05/14/22 07:49 Dose: 1 tab Omeprazole (Omeprazole 20 Mg Capsule.Dr) 20 mg PO DAILY@0630 [facility] Last Admin: 05/14/22 05:23 Dose: 20 mg Sodium Chloride (0.9 % Sodium Chloride Flush 3 Ml Syringe) 3 ml IVFLUSH QSHIFT [facility] Last Admin: 05/14/22 20:12 Dose: 3 ml Home Medications Medication Instructions Recorded Confirmed Last Taken Type lorazepam 1 mg tablet 1 tab PO BEDTIME PRN Anxiety 04/21/22 05/08/22 Unknown History multivitamin 1 tab PO DAILY 05/08/22 05/08/22 Unknown History omeprazole 20 mg capsule,delayed 20 mg PO DAILY 05/08/22 05/08/22 Unknown History release Physical Exam Vital Signs: Vital Signs: Last Vital Signs Temp 95.7 F L 05/15/22 03:54 Pulse 129 H 05/15/22 03:54 Resp 24 H 05/15/22 03:54 BP 133/99 H 05/15/22 03:54 Pulse Ox 99 05/15/22 03:54 O2 Del Method 05/15/22 03:54 O2 Flow Rate 2 05/15/22 01:15 FiO2 100 05/15/22 03:54 Oxygen Flow Rate 15 05/15/22 01:15 BMI result Body Mass Index 32.9 Focused assement performed at ?General:? Alert oriented x3 in severe resp distress.? ?Skin:? Intact, multiple bruises throughout.. ?HEENT:? Head is normocephalic, atraumatic, pupils equal round reactive to light accommodation bilaterally.? Extraocular movements appear intact.? Buccal mucosa is dry, Neck is supple without lymphadenopathy. ?Cardiac:? Clear S1-S2, no murmurs rubs or gallops. + BLE Edema ?Pulmonary:? Lungs Dim, no wheezes, rales or rhonchi. ?Abdomen:?positive bowel sounds in all 4 quadrants.? Soft, nontender,mild tenderness ?? ?Musculoskeletal:? Moving all 4 extremities upon request a major joints ?Neurologic:? cranial nerves 2-12 are grossly intact.? No focal deficits noted.Motor strength as above.?? Vascular:? 2+ pulses upper and lower extremities distally.? Results Labs CBC & Chem 7: 05/15/22 02:11 05/15/22 02:11 Labs: Short CBC 05/14/22 05/15/22 Range/Units 05:25 02:11 WBC 31.1 H* 34.6 H* (4.8-10.8) X10*3/uL Hgb 9.4 L 11.4 L D (12.0-16.0) g/dl Hct 29.3 L 37.9 D (37.0-47.0) % Plt Count 224 308 D (160-400) X10*3/uL BMP 05/14/22 05/14/22 05/15/22 05:25 13:50 02:11 Sodium 129 L 130 L 129 L Potassium 3.7 3.9 4.6 Chloride 101 99 97 Carbon Dioxide 19 L 15 L 11 L BUN 18 H 18 H 19 H Creatinine 0.63 0.82 1.41 H Calcium 7.0 L 7.2 L 7.5 L Liver Function 05/15/22 Range/Units 02:11 Total Bilirubin 0.6 (0.0-1.0) mg/dL AST 65 H (5-31) U/L ALT 23 (0-31) U/L Alkaline Phosphatase 287 H D (39-117) U/L Albumin 1.6 L D (3.5-5.0) g/dL Microbiology Microbiology Results: Microbiology 05/08/22 18:33 Blood - Venous Blood Culture - Final No growth after 5 days. 05/08/22 18:33 Blood - Venous Blood Culture - Final No growth after 5 days. 05/09/22 02:30 Stool Stool Culture - Final Assessment and Plan (1) Perforated bowel: Status: Acute (2) Septic shock: Status: Acute (3) CIARA (acute kidney injury): Status: Acute (4) Anemia: Status: Acute (5) Colitis: Status: Acute (6) Diverticulitis: Status: Acute Plan ?Neuro:? No acute issues? Cardiac:? ?Septic shock-? patient became acutely hypotensive,? with elevated lactic.? This is likely due to perforation. Unable to do appropriate sepsis IV fluids hydration at this time due to patient underlying heart failure. Will give 1liter bolus and albumin. ? Will initiate pressors. Awaiting gen surgery consult? Pulmonary:?? Acute hypoxic? respiratory failure- ? requiring urgent intubation.? This is likely due to? metabolic acidois from bowel perf. Wean off when appropriate.? Renal:? CIARA- most likely related to hypoperfusion.? Nonoliguric.? Will give 1 l bolus and? albumin.? Continue to check renal induces and urine output GI:? Patient has known micro perforated diverticulum- On? Flagyl? and ceftriaxone. Being followed by surgery. With acute decompensation likely from worsening perf. Will add empiric dose of vanco. Dr Mazzuco in to see patient. Patient will be taken emergently to OR.? Endo:? No acute issues ID: ? see GI plan Heme/Onc:?? ?No acute issues Psych:? No acute issues. Miscellaneous:? ?When I assessed patient,? code status? as well as plan of care was discussed.? Patient wanted to be full code? and wanted ?? everything done?? Prophylaxis:? mechanical boots? due to GI bleed. ? IV push Protonix Diet: ? NPO Code status:? full code Critical care? time: x? 120 minutes of critical care Critical Care Time Critical Care Time (minutes): 120
--- NOTE | 2022-05-15 04:20 | W.PM.CCHP ---
Procedures Date of Service Date of Service: 05/15/22 Intubation Intubation Comments: patient requiring emergent intubation for severe hypoxemia and airway protection. patient intubated with a 7.5 cuffed ET tube on the GlideScope guidance with good visualization of vocal cords without immediate complications. ETT verified with chest xray Consent for Procedure: Emergent-no informed consent obtained Time out performed: Yes Sedative: propofol Mg given: 100 Laryngoscope: fiber optic video scope ET tube size: 7.5 ET tube uncuffed: No Tube secured depth (cm): 21 Tube secured location: lips Tube placement confirmation: visualized tube passing through cords, equal breath sounds bilaterally, no breath sounds over epigastrium and confirmation by capnometry Patient tolerated procedure: well and no complications Intubation complications: none
--- NOTE | 2022-05-15 04:23 | W.PM.CCHP ---
Procedures Date of Service Date of Service: 05/15/22 Central Line Placement Right IJ: Central Line Comments: Patient with poor peripheral access, requiring pressors.? Central line placed Right internal jugular triple lumen central venous catheter placed in usual sterile conditions under ultrasound guidance for appropriate vascular access without immediate complications. Central line position verified with Chest XRAY. Consent for Procedure: Emergent-no informed consent obtained Time out performed: Yes Sterile Technique Used: Yes Patient placed on monitor/pulse ox: Yes MD prep: mask, gown and gloves Central line prep: Chlorhexidine scrub Local anesthesia used: other anesthetic ( on propofol) Ultrasound used for placement: Yes Central line lumen inserted: triple Post procedure: sutured in place, good blood return, all ports aspirated, flushed, capped and sterile dressing applied Post procedure x-ray: tip of catheter in good position and no pneumothorax seen Patient tolerated procedure: well and no complications Complications: none
[2022-05-15 04:30] LABS: Appearance Urine HAZY; Color Urine BROWN; Glucose Urine UA NEG (NEG); Leukocyte Esterase Urine TRACE (NEG); Nitrite Urine POS (NEG); PH 6.5 (5.0-8.0); UACC Culture Trigger YES; Urine Blood NEG (NEG); Urine Ketones 5 MG/DL (NEG); Urine Protein 1+ MG/DL (NEG-TRACE)
[2022-05-15 04:33] LABS: VBG Base Excess -12.8 mmol/L; VBG HCO3 12 mmol/L (22-26); VBG pCO2 26 mmHg; VBG pH 7.27 (7.32-7.43); VBG pO2 63 mmHg
[2022-05-15 04:34] LABS: Venous Blood Gas Refer to POC result
[2022-05-15 04:38] LABS: Amorphous Sediment Urine 1+ /LPF; Bacteria Urine 1+ /LPF; Mucus Urine 2+ /LPF; Squamous Epithelial Cell Urine 2+ /LPF
--- NOTE | 2022-05-15 04:38 | P.PNGS_ITS ---
Subjective Subjective Date of Service: 05/15/22 Interval history: Patient developed respiratory distress this morning, rapid response called. She was found unresponsive with O2 sats of 75%, hypotension. She was transfered to the ICU. The situation was discussed with the patient by the ICU team, and she stated she wanted everything done, including intubation and surgery. Patient was intubated and central access obtained. Labs this morning show an increase in the WBC and lactate, consistent with sepsis. She was started on steriod bolus for probable UC earlier, which could also cause an increase in the WBC. Physical Exam Vital Signs: Vital Signs: Last Vital Signs Temp 95.7 F L 05/15/22 03:54 Pulse 129 H 05/15/22 03:54 Resp 24 H 05/15/22 03:54 BP 133/99 H 05/15/22 03:54 Pulse Ox 99 05/15/22 03:54 O2 Del Method 05/15/22 03:54 O2 Flow Rate 2 05/15/22 01:15 FiO2 100 05/15/22 03:54 Oxygen Flow Rate 15 05/15/22 01:15 BMI result Body Mass Index 32.9 Const: Other: intubated and sedated Resp: Other: breathing on vent Cardio: Other: tachycardia GI: Other: distended but soft; some wincing with palpation. Skin: Other: warm, dry, brisk cap refill Extrem: General: Yes edema Objective Data Active Medications Acetaminophen (Acetaminophen 325 Mg Tablet) 650 mg PO Q6H PRN PRN Reason: Pain, Mild (Pain Scale 1-3) Last Admin: 05/12/22 21:27 Dose: 650 mg Documented By: ANTIONETTE Ceftriaxone Sodium 1 gm/ (Sodium Chloride) 50 mls @ 100 mls/hr IV Q24H [facility] Last Infusion: 05/14/22 20:31 Dose: 0 mls/hr Documented By: LUIS Metronidazole (Flagyl) 500 mg in 100 mls @ 100 mls/hr IV Q8H [facility] Last Infusion: 05/14/22 21:36 Dose: 0 mls/hr Documented By: ULIS Norepinephrine Bitartrate (Levophed) 8 mg in 250 mls @ 0 mls/hr IVCONT .Q0M ESTRELLA; Protocol Albumin Human (Kedbumin 25 %) 100 mls @ 100 mls/hr IV ONCE ONE Stop: 05/15/22 05:18 Lactated Ringer's (Lr) 1,000 mls @ 999 mls/hr IV .Q1H1M [facility] Stop: 05/15/22 05:45 Mesalamine (Mesalamine 400 Mg Cap.Drtab.) 1,600 mg PO QID [facility] Last Admin: 05/14/22 20:15 Dose: 1,600 mg Documented By: LUIS Methylprednisolone Sodium Succinate (Methylprednisolone Sod Succ 40 Mg/Ml Vial) 20 mg IVPUSH Q8H [facility] Last Admin: 05/14/22 17:59 Dose: 20 mg Documented By: COTEMA Multivitamins/Vitamin C (Multivitamin Tablet) 1 tab PO DAILY [facility] Last Admin: 05/14/22 07:49 Dose: 1 tab Documented By: COTMATTI Omeprazole (Omeprazole 20 Mg Capsule.Dr) 20 mg PO DAILY@0630 [facility] Last Admin: 05/14/22 05:23 Dose: 20 mg Documented By: TYLER Sodium Chloride (0.9 % Sodium Chloride Flush 3 Ml Syringe) 3 ml IVFLUSH QSHIFT [facility] Last Admin: 05/14/22 20:12 Dose: 3 ml Documented By: LUIS Labs CBC & Chem 7: 05/15/22 02:11 05/15/22 02:11 Labs: Laboratory Results - last 24 hr 05/14/22 05/14/22 05/14/22 05:25 05:25 13:50 MCV 79.6 L MCH 25.5 L MCHC 32.1 RDW 27.9 H Plt Count 224 MPV 9.2 L Immature Gran % (Auto) Neut % (Auto) Lymph % (Auto) [place] % (Auto) Eos % (Auto) Baso % (Auto) Lymph # (Auto) [place] # (Auto) Eos # (Auto) Baso # (Auto) Abs Immat Gran (auto) Absolute Neuts (auto) Absolute Nucleated RBC 0.020 H Nucleated RBC % (auto) 0.1 Neutrophils % (Manual) Band Neutrophils % Lymphocytes % (Manual) Monocytes % (Manual) Metamyelocytes % Abs Neuts (Manual) Lymphocytes # (Manual) Monocytes # (Manual) Metamyelocytes # Toxic Granulation Toxic Vacuolation Platelet Estimate Plt Morphology Comment RBC Morphology Polychromasia Hypochromasia Microcytosis Macrocytosis O2 Saturation ABG pH at Pt Temp ABG pCO2 at Pt Temp ABG pO2 at Pt Temp ABG HCO3 ABG Base Excess (Actual) VBG pH VBG pCO2 VBG pO2 VBG HCO3 VBG O2 Saturation VBG Base Excess Anion Gap 13 20 Estim Creat Clear Calc 71.1 54.7 Estimated GFR > 60 > 60 POC Glucose Random Glucose 131 H 114 Lactic Acid Calcium 7.0 L 7.2 L Total Bilirubin AST ALT Alkaline Phosphatase Troponin I High Sens C-Reactive Protein 10.80 H B-Natriuretic Peptide Total Protein Albumin Urine Color Urine Appearance Urine pH Ur Specific [place] Urine Protein Urine Glucose (UA) Urine Ketones Urine Blood Urine Nitrite Ur Leukocyte Esterase 05/15/22 05/15/22 05/15/22 01:25 01:43 01:47 MCV MCH MCHC RDW Plt Count MPV Immature Gran % (Auto) Neut % (Auto) Lymph % (Auto) [place] % (Auto) Eos % (Auto) Baso % (Auto) Lymph # (Auto) [place] # (Auto) Eos # (Auto) Baso # (Auto) Abs Immat Gran (auto) Absolute Neuts (auto) Absolute Nucleated RBC Nucleated RBC % (auto) Neutrophils % (Manual) Band Neutrophils % Lymphocytes % (Manual) Monocytes % (Manual) Metamyelocytes % Abs Neuts (Manual) Lymphocytes # (Manual) Monocytes # (Manual) Metamyelocytes # Toxic Granulation Toxic Vacuolation Platelet Estimate Plt Morphology Comment RBC Morphology Polychromasia Hypochromasia Microcytosis Macrocytosis O2 Saturation 99.0 ABG pH at Pt Temp 7.31 L ABG pCO2 at Pt Temp 12 L* ABG pO2 at Pt Temp 488 H ABG HCO3 6 L ABG Base Excess (Actual) -16.7 VBG pH VBG pCO2 VBG pO2 VBG HCO3 VBG O2 Saturation VBG Base Excess Anion Gap Estim Creat Clear Calc Estimated GFR POC Glucose 69 170 H Random Glucose Lactic Acid Calcium Total Bilirubin AST ALT Alkaline Phosphatase Troponin I High Sens C-Reactive Protein B-Natriuretic Peptide Total Protein Albumin Urine Color Urine Appearance Urine pH Ur Specific [place] Urine Protein Urine Glucose (UA) Urine Ketones Urine Blood Urine Nitrite Ur Leukocyte Esterase 05/15/22 05/15/22 05/15/22 02:11 02:11 02:11 MCV 85.4 D MCH 25.7 L MCHC 30.1 L RDW 28.9 H Plt Count 308 D MPV 9.4 Immature Gran % (Auto) Cancelled Neut % (Auto) Cancelled Lymph % (Auto) Cancelled [place] % (Auto) Cancelled Eos % (Auto) Cancelled Baso % (Auto) Cancelled Lymph # (Auto) Cancelled [place] # (Auto) Cancelled Eos # (Auto) Cancelled Baso # (Auto) Cancelled Abs Immat Gran (auto) Cancelled Absolute Neuts (auto) Cancelled Absolute Nucleated RBC 0.080 H Nucleated RBC % (auto) 0.2 Neutrophils % (Manual) 87 H Band Neutrophils % 10 H Lymphocytes % (Manual) 1 L Monocytes % (Manual) 1 L Metamyelocytes % 1 Abs Neuts (Manual) 33.6 H Lymphocytes # (Manual) 0.3 L Monocytes # (Manual) 0.3 Metamyelocytes # 0.3 Toxic Granulation PRESENT Toxic Vacuolation PRESENT Platelet Estimate NORMAL Plt Morphology Comment NORMAL RBC Morphology NOTED Polychromasia 1+ (0-2) Hypochromasia 1+ (5-14) Microcytosis 1+ (5-14) Macrocytosis 1+ (5-14) O2 Saturation ABG pH at Pt Temp ABG pCO2 at Pt Temp ABG pO2 at Pt Temp ABG HCO3 ABG Base Excess (Actual) VBG pH VBG pCO2 VBG pO2 VBG HCO3 VBG O2 Saturation VBG Base Excess Anion Gap 26 H Estim Creat Clear Calc 31.8 Estimated GFR 36 POC Glucose Random Glucose 165 H Lactic Acid 14.0 H* Calcium 7.5 L Total Bilirubin 0.6 AST 65 H ALT 23 Alkaline Phosphatase 287 H D Troponin I High Sens C-Reactive Protein B-Natriuretic Peptide Total Protein 4.5 L Albumin 1.6 L D Urine Color Urine Appearance Urine pH Ur Specific [place] Urine Protein Urine Glucose (UA) Urine Ketones Urine Blood Urine Nitrite Ur Leukocyte Esterase 05/15/22 05/15/22 05/15/22 02:11 02:11 04:18 MCV MCH MCHC RDW Plt Count MPV Immature Gran % (Auto) Neut % (Auto) Lymph % (Auto) [place] % (Auto) Eos % (Auto) Baso % (Auto) Lymph # (Auto) [place] # (Auto) Eos # (Auto) Baso # (Auto) Abs Immat Gran (auto) Absolute Neuts (auto) Absolute Nucleated RBC Nucleated RBC % (auto) Neutrophils % (Manual) Band Neutrophils % Lymphocytes % (Manual) Monocytes % (Manual) Metamyelocytes % Abs Neuts (Manual) Lymphocytes # (Manual) Monocytes # (Manual) Metamyelocytes # Toxic Granulation Toxic Vacuolation Platelet Estimate Plt Morphology Comment RBC Morphology Polychromasia Hypochromasia Microcytosis Macrocytosis O2 Saturation ABG pH at Pt Temp ABG pCO2 at Pt Temp ABG pO2 at Pt Temp ABG HCO3 ABG Base Excess (Actual) VBG pH VBG pCO2 VBG pO2 VBG HCO3 VBG O2 Saturation VBG Base Excess Anion Gap Estim Creat Clear Calc Estimated GFR POC Glucose Random Glucose Lactic Acid Calcium Total Bilirubin AST ALT Alkaline Phosphatase Troponin I High Sens 25.6 H D C-Reactive Protein B-Natriuretic Peptide 594 H Total Protein Albumin Urine Color BROWN A Urine Appearance HAZY Urine pH 6.5 Ur Specific [place] 1.020 Urine Protein 1+ H Urine Glucose (UA) NEG Urine Ketones 5 Urine Blood NEG Urine Nitrite POS H Ur Leukocyte Esterase TRACE H 05/15/22 04:28 MCV MCH MCHC RDW Plt Count MPV Immature Gran % (Auto) Neut % (Auto) Lymph % (Auto) [place] % (Auto) Eos % (Auto) Baso % (Auto) Lymph # (Auto) [place] # (Auto) Eos # (Auto) Baso # (Auto) Abs Immat Gran (auto) Absolute Neuts (auto) Absolute Nucleated RBC Nucleated RBC % (auto) Neutrophils % (Manual) Band Neutrophils % Lymphocytes % (Manual) Monocytes % (Manual) Metamyelocytes % Abs Neuts (Manual) Lymphocytes # (Manual) Monocytes # (Manual) Metamyelocytes # Toxic Granulation Toxic Vacuolation Platelet Estimate Plt Morphology Comment RBC Morphology Polychromasia Hypochromasia Microcytosis Macrocytosis O2 Saturation ABG pH at Pt Temp ABG pCO2 at Pt Temp ABG pO2 at Pt Temp ABG HCO3 ABG Base Excess (Actual) VBG pH 7.27 L VBG pCO2 26 VBG pO2 63 VBG HCO3 12 L VBG O2 Saturation 82.0 VBG Base Excess -12.8 Anion Gap Estim Creat Clear Calc Estimated GFR POC Glucose Random Glucose Lactic Acid Calcium Total Bilirubin AST ALT Alkaline Phosphatase Troponin I High Sens C-Reactive Protein B-Natriuretic Peptide Total Protein Albumin Urine Color Urine Appearance Urine pH Ur Specific [place] Urine Protein Urine Glucose (UA) Urine Ketones Urine Blood Urine Nitrite Ur Leukocyte Esterase Procedures Date of Service Date of Service: 05/15/22 Progress Note: A&P Assessment and plan (1) Lactic acidosis: Status: Acute (2) Sepsis: Status: Acute (3) Perforated bowel: Status: Acute Plan Patient developed respiratory distress this morning, rapid response called. She was found unresponsive with O2 sats of 75%, hypotension. She was transfered to the ICU. The situation was discussed with the patient by the ICU team, and she stated she wanted everything done, including intubation and surgery. Patient was intubated and central access obtained. Labs this morning show an increase in the WBC and lactate, consistent with sepsis. She was started on steriod bolus for probable UC earlier, which could also cause an increase in the WBC. I spoke with the patient's , Phil, this morning and reviewed the situation. She previously told me she was not interested in surgery, but apparently changed her mind this morning and now wants everything done. He would also like every thing done to possibly save her life. I recommended an e xploratory laparotomy, possible bowel resection and colostomy, and he gives his verbal consent. The OR team has been called for the procedure now. Anesthesia was called as well. Time Spent With Patient Time: Total time spent is greater than 50% in coordination of care (as documented) at patient's floor/unit and/or counseling patient: Quality Stroke Does the patient have a stroke diagnosis?: No VTE Prior VTE?: No VTE Risk Level:: Medical - moderate - high VTE Device Contraindication: N/A - Device Ordered VTE Drug Contraindication: Treatment Not Indicated
[2022-05-15] MEDS: Lactated Ringers 1,000 ML 999 ML IV ×2 (04:58→10:00)
[2022-05-15] MEDS: Sodium Bicarbonate 8.4% 50 MEQ/50 ML SYRINGE IVPUSH ×6 (04:58→19:41)
[2022-05-15] MEDS: Phenylephrine HCL 10 MG/ML VIAL IVPUSH (04:59)
[2022-05-15] MEDS: propofoL 200 MG/20 ML VIAL 100 MG IVPUSH (05:00)
[2022-05-15] MEDS: Albumin Human 25 % 100 ML IV ×3 (05:00→05:07)
[2022-05-15] MEDS: metroNIDAZOLE/NS 500 MG/100 ML PIGGYBACK 100 MG IV ×3 (05:02→19:43)
[2022-05-15] MEDS: vancomycin HCL 1,250 MG in 0.9 % Sodium Chloride 250 ML 166.67 MG IV (05:03)
[2022-05-15] MEDS: Pantoprazole Sodium 40 MG/10 ML VIAL IVPUSH (05:06)
--- NOTE | 2022-05-15 06:23 | PC.NURSE ---
Pt transferred to ICU from med/surg at approx 0230. Immediately given 1 amp bicarb IVP. SBP 50s, phenylephrine 0.3 mg IVP given for immediate support by CARE ASSOCIATE. Levophed gtt ordered and titrated to maintain MAP > 65. Pt emergently intubated upon arrival- given propofol 100 mg IVP. Propofol gtt started per emar, RASS -3. ETT #7.5, 21 cm at lip. Placed on AC settings- 16/340/3/60%, EtCO2 11, 1 amp bicarb IVP given. Temp 95. Sinus tach on tele, HR 130s. Abd round, semi firm. Bernabe placed, 30 ml total out, brown colored, sample sent. TLC placed to R IJ. CVP 6-8. Surgical team called by in, report given to OR nurse, transferred to OR at approx 0600. Family called/aware of plan of care/pt status. ?DTI to coccyx, pictures to be taken.
[2022-05-15 06:27] LABS: Reflex Lactate? 2 Y
--- NOTE | 2022-05-15 07:47 | MHC.CM.PN ---
NURSE OCEANOLOGIST NOTE UPON ARRIVAL FOUND THAT THIS PATIENT HAD BEEN [facility]ED [facility] TO ICU . pER DOCUMENTATION (Patient developed respiratory distress this morning,. found unresponsive with O2 sats of 75%, hypotension. She was transfered to the ICU. intubated surgical consult and patient will now have surgery sometime today .Patient developed respiratory distress this morning, rapid response called. She was found unresponsive with O2 sats of 75%, hypotension. She was transfered to the ICU. notified the care tenders vna that patient would not be discharged over the weekend and continue to follow
--- NOTE | 2022-05-15 08:46 | MHC.CLN ---
PT IS INTUBATED AND SEDATED RECOMMEND TF PROMOTE AT MAX GOAL RATE 45ML/HR WITH 120ML FREE WATER FLUSHES Q 6 HRS TO PROVIDE 1080KCALS (1330KCALS WITH SEDATION; 23KCALS/KG), 68G PROTEIN (1.2G/KG), 1386ML TOTAL WATER FROM FORMULA AND FLUSHES (24ML/KG) START AT 20ML/HR AND INCREASE BY 10ML Q 4 HRS UNTIL MAX GOAL IS ACHIEVED MONITOR TOLERANCE, RESIDUALS AND LYTES SEE ALSO FULL CLINICAL NUTRITION ASSESSMENT
--- NOTE | 2022-05-15 09:02 | W.PM.OPN ---
Operative Note Operative Note Date of Service: 05/15/22 Narrative: Preoperative diagnosis: Perforated viscus, septic shock Postoperative diagnosis: Same Procedure: Exploratory laparotomy, extended left colectomy, transverse colostomy Surgeon: Norris Lyman MD Manager Medical Affairs: No physician Anesthesia: General endotracheal Indications for procedure: 77-year-old female patient presenting with history of abdominal pain in the left upper quadrant left lower quadrant felt to be possibly due to colitis either ischemic or ulcerative colitis. Patient was started on steroids and her WBC noted to elevate to 31,000. Early this morning she became unresponsive with decreased saturation and hypotension. She was transferred to the ICU. Prior to intubation the patient requested wall measures to be performed to save her life. This includes intubation and surgery. Patient was found to have increased WBC with an elevated lactate level 14. She was started on a Levophed drip and IV fluids bolus. Abdominal exploration is recommended for possible perforated viscus. Operative findings: Multiple areas of perforation of the sigmoid colon and transverse colon suggestive of ischemic colitis. Markedly thickened descending and sigmoid colon. Specimen: Extended left colectomy Estimated blood loss: 50 mL Complications: None Drains: Nasogastric tube, Bernabe catheter Procedure details: Patient was brought to the OR and placed in a supine position. Patient was previously intubated the ICU. A surgical time-out was called the consent confirmed. Patient has been on IV antibiotics and Venodyne boots were placed. A generous midline incision was then created with a scalpel and then carried out through subcutaneous tissue through linea alba into the peritoneal cavity. The above findings were noted. A Bookwalter retractor was placed. A large amount of fecal in smelling serous fluid was evacuated occluding many interloop collections, collections above the liver, in the left and right gutters and pelvis. Examination revealed thickening of the sigmoid colon with ischemic appearing left colon, splenic flexure and transverse colon proximal to the splenic flexure. A small perforation was identified in the distal left colon. Findings were suggestive of perforation due to either colitis or diverticulitis. The splenic flexure, left colon was mobilized along the white line of [place]. Splenic flexure was then mobilized beginning proximally in the transverse colon and continuing distal along the transverse colon and proximal left colon. An area in the mid transverse colon was then identified as appearing healthy and well vascularized. A DENEEN stapler with a green reload was then used to fire across the transverse colon after which the LigaSure was used to mobilize the distal transverse colon, splenic flexure, left colon and sigmoid colon along the mesentery close to the bowel wall. Dissection was continued down to the rectosigmoid junction. Area of softer bowel was identified at the proximal rectum. After completely mobilizing the mesentery, a TA stapler, green used to staple the bowel at the proximal rectum. Scalpel was then used to divide the bowel above the stapler. Specimen was then removed and sent to pathology for further examination. Peritoneal cavity was then irrigated copiously with approximately 3 L of saline solution. Fluid was then evacuated. The proximal transverse colon was then mobilized further and the omentum dissected off the bowel. An area in the right upper quadrant was prepared for colostomy placement. A circular incision was made in the right upper quadrant with a 15 blade. This was carried down to the anterior rectus sheath. This was then incised with the electrocautery making a cruciate incision. Rectus muscle was then divided and posterior sheath and peritoneum entered. This was then dilated using 3 fingers. An Ej extra-small wound protector was then placed at this time. The proximal transverse colon stump was then brought up through this incision for an end transverse colon colostomy. The midline incision was then closed using a running 0 looped PDS suture skin was then closed using skin henrry. Attention was then directed back to the colostomy which was matured using 3-0 Polysorb sutures. A colostomy appliance was then applied. Sterile dressings were applied to the abdominal incision. The patient remained in critical condition throughout the procedure and continued on pressors. She remained intubated following the procedure was transferred back to ICU in critical condition. Operative findings were then reviewed with the patient's family and with the ICU staff.
[2022-05-15 09:53] LABS: ABG Base Excess -20.2 mmol/L; ABG HCO3 10 mmol/L (22-26); ABG pCO2 38 mmHg (32-45); ABG pO2 55 mmHg (83-108)
[2022-05-15] MEDS: dexAMETHasone sod phosphate 4 MG/ML VIAL 6 MG IVPUSH (11:07)
[2022-05-15] MEDS: Chlorhexidine Gluc Oral Rinse 15 ML MOUTHWASH BUCCAL ×3 (11:07→19:43)
[2022-05-15] MEDS: Multivitamin TABLET 1 TAB PO (11:08)
[2022-05-15] MEDS: 0.9 % Sodium Chloride Flush 3 ML SYRINGE IVFLUSH ×2 (11:09→15:10)
[2022-05-15] MEDS: Lactated Ringers 1,000 ML 250 ML IVCONT ×2 (11:12→15:10)
[2022-05-15 11:37] LABS: ABG HCO3 7 mmol/L (22-26); ABG pCO2 19 mmHg (32-45); ABG pH 7.14 (7.35-7.45); ABG pO2 121 mmHg (83-108)
--- NOTE | 2022-05-15 11:51 | W.PM.CCHP ---
Procedures Date of Service Date of Service: 05/15/22 Arterial Line Arterial Line Comments: markedly hypotensive upper extremity pulses nearly impalpable and were on 2 pressors and CVP monitoring as an indication for an arterial line and by palpation after sterile preparation and draping I gained easy entry into the right common femoral artery passing retrograde with Seldinger technique AJ tipped guidewire over which a long are arterial catheter was then placed with excellent wave morphology with an initial reading of 105 systolic Consent: Emergent-no informed consent obtained Sterile Technique Used: Yes Time out performed: Yes Size (Gauge): 18 Technique used: modified Seldinger technique Post-Procedure: line sutured into place and dry sterile dressing placed Patient tolerated procedure: well and no complications Complications: none Site: right
--- NOTE | 2022-05-15 11:53 | P.PNCC_ITS ---
Subjective Subjective Date of Service: 05/15/22 Interval History: extremely sick individual possibly sitting on a perforated bowel and potentially with considerable peritoneal soilage made apparent by the free air that is noted on the CT scan which may very well simply be due to necrotic bowel the with its own perforation but 1 way or the other she was profoundly septic in shock profound lactic acidosis and hyperventilating to compensate for the acidosis to the point where she could no longer compensate and there was a question with her work of breathing and the and she had marked hypoxia with a oxygen saturation of 75% that she might be evolving ARDS is a further complication so she came down for immediate intubation but before this in order to be able support her through the sedation we 1st gave her an empiric amp of bicarb at 50 mEq and then following that we gave her between 30 and 50 mcg of IV phenylephrine to support her pressure so as not to lose it when we initiated propofol and we was sparing at 40-50 mg of IV propofol of for intubation and that went without complication and then immediately following she was sterilely prepped and a right-sided internal jugular central venous pressure line was passed to the junction of the superior vena cava and right atrium so we could continue to monitor central venous pressure and replace volume as needed with that we had a more stable patient with a better blood pressure metabolically comfortable on the ventilator synchronized and ready for the OR where she went the no to have an open exploratory procedure bowel resection diverting colostomy and extensive washout of the peritoneal cavity as the hours progressed we had her on multiple pressors and inclusive of vasopressin and Levophed and phenylephrine multiple pushes of bicarb when she became dramatically hypotensive to enhance the effectiveness of the pressors and a dialysis catheter was placed via the left internal jugular without complication dialysis was started keeping her blood pressure was difficulty but again we had no choice but to attempt to improve upon the acidosis for the sake of function the PEEP was also shut off for from the ventilator to try to enhance blood pressure but clearly very much in up ill climb and she has got dramatic and growing anasarca number frayed at the no it is looking like the prognosis is grave I have explained the situation to the family they agreed to proceed with the dialysis attempt but made her DNR in the event the no she should have an arrest and clearly that would be after having been on maximum support and resuscitation would be futile Critical Care Time (minutes): 75 Physical Exam Vital Signs: Vital Signs: Last Vital Signs Temp 96.3 F L 05/15/22 10:00 Pulse 121 H 05/15/22 11:00 Resp 25 H 05/15/22 11:00 BP 103/54 L 05/15/22 11:00 Pulse Ox 99 05/15/22 11:00 O2 Del Method 05/15/22 11:00 O2 Flow Rate 2 05/15/22 01:15 FiO2 60 05/15/22 11:21 Oxygen Flow Rate 15 05/15/22 01:15 BMI result Body Mass Index 32.9 completely comatose no response to deep pain very marginal blood pressure hypotensive means at best are approximately 50 with systolic pressure of 70 sinus tachycardia 110 add with her end-tidal CO2. Falling dramatically I think in this very acidotic environment she has got severe cardiovascular dysfunction and we have no choice but to stop the dialysis after a little over an hours worth of treatment because the hypotension is intractable and worsening and looks like avid every expectation is that she would not survive unfortunately this this event Objective Data Labs CBC & Chem 7: 05/15/22 13:04 05/15/22 13:04 Labs: Laboratory Results - last 24 hr 05/14/22 05/15/22 05/15/22 13:50 01:25 01:43 WBC RBC Hgb Hct MCV MCH MCHC RDW Plt Count MPV Immature Gran % (Auto) Neut % (Auto) Lymph % (Auto) [place] % (Auto) Eos % (Auto) Baso % (Auto) Lymph # (Auto) [place] # (Auto) Eos # (Auto) Baso # (Auto) Abs Immat Gran (auto) Absolute Neuts (auto) Absolute Nucleated RBC Nucleated RBC % (auto) Neutrophils % (Manual) Band Neutrophils % Lymphocytes % (Manual) Monocytes % (Manual) Metamyelocytes % Abs Neuts (Manual) Lymphocytes # (Manual) Monocytes # (Manual) Metamyelocytes # Toxic Granulation Toxic Vacuolation Platelet Estimate Plt Morphology Comment RBC Morphology Polychromasia Hypochromasia Microcytosis Macrocytosis O2 Saturation ABG pH at Pt Temp ABG pCO2 at Pt Temp ABG pO2 at Pt Temp ABG HCO3 ABG Base Excess (Actual) VBG pH VBG pCO2 VBG pO2 VBG HCO3 VBG O2 Saturation VBG Base Excess Sodium 130 L Potassium 3.9 Chloride 99 Carbon Dioxide 15 L Anion Gap 20 BUN 18 H Creatinine 0.82 Estim Creat Clear Calc 54.7 Estimated GFR > 60 POC Glucose 69 170 H Random Glucose 114 Lactic Acid Lactic Acid F/U @ 2Hr Calcium 7.2 L Total Bilirubin AST ALT Alkaline Phosphatase Troponin I High Sens B-Natriuretic Peptide Total Protein Albumin Urine Color Urine Appearance Urine pH Ur Specific [place] Urine Protein Urine Glucose (UA) Urine Ketones Urine Blood Urine Nitrite Ur Leukocyte Esterase Urine RBC Urine WBC Ur Squamous Epith Cells Amorphous Sediment Urine Bacteria Hyaline Casts Urine Mucus 05/15/22 05/15/22 05/15/22 01:47 02:11 02:11 WBC 34.6 H* RBC 4.44 D Hgb 11.4 L D Hct 37.9 D MCV 85.4 D MCH 25.7 L MCHC 30.1 L RDW 28.9 H Plt Count 308 D MPV 9.4 Immature Gran % (Auto) Cancelled Neut % (Auto) Cancelled Lymph % (Auto) Cancelled [place] % (Auto) Cancelled Eos % (Auto) Cancelled Baso % (Auto) Cancelled Lymph # (Auto) Cancelled [place] # (Auto) Cancelled Eos # (Auto) Cancelled Baso # (Auto) Cancelled Abs Immat Gran (auto) Cancelled Absolute Neuts (auto) Cancelled Absolute Nucleated RBC 0.080 H Nucleated RBC % (auto) 0.2 Neutrophils % (Manual) 87 H Band Neutrophils % 10 H Lymphocytes % (Manual) 1 L Monocytes % (Manual) 1 L Metamyelocytes % 1 Abs Neuts (Manual) 33.6 H Lymphocytes # (Manual) 0.3 L Monocytes # (Manual) 0.3 Metamyelocytes # 0.3 Toxic Granulation PRESENT Toxic Vacuolation PRESENT Platelet Estimate NORMAL Plt Morphology Comment NORMAL RBC Morphology NOTED Polychromasia 1+ (0-2) Hypochromasia 1+ (5-14) Microcytosis 1+ (5-14) Macrocytosis 1+ (5-14) O2 Saturation 99.0 ABG pH at Pt Temp 7.31 L ABG pCO2 at Pt Temp 12 L* ABG pO2 at Pt Temp 488 H ABG HCO3 6 L ABG Base Excess (Actual) -16.7 VBG pH VBG pCO2 VBG pO2 VBG HCO3 VBG O2 Saturation VBG Base Excess Sodium 129 L Potassium 4.6 Chloride 97 Carbon Dioxide 11 L Anion Gap 26 H BUN 19 H Creatinine 1.41 H Estim Creat Clear Calc 31.8 Estimated GFR 36 POC Glucose Random Glucose 165 H Lactic Acid Lactic Acid F/U @ 2Hr Calcium 7.5 L Total Bilirubin 0.6 AST 65 H ALT 23 Alkaline Phosphatase 287 H D Troponin I High Sens B-Natriuretic Peptide Total Protein 4.5 L Albumin 1.6 L D Urine Color Urine Appearance Urine pH Ur Specific [place] Urine Protein Urine Glucose (UA) Urine Ketones Urine Blood Urine Nitrite Ur Leukocyte Esterase Urine RBC Urine WBC Ur Squamous Epith Cells Amorphous Sediment Urine Bacteria Hyaline Casts Urine Mucus 05/15/22 05/15/22 05/15/22 02:11 02:11 02:11 WBC RBC Hgb Hct MCV MCH MCHC RDW Plt Count MPV Immature Gran % (Auto) Neut % (Auto) Lymph % (Auto) [place] % (Auto) Eos % (Auto) Baso % (Auto) Lymph # (Auto) [place] # (Auto) Eos # (Auto) Baso # (Auto) Abs Immat Gran (auto) Absolute Neuts (auto) Absolute Nucleated RBC Nucleated RBC % (auto) Neutrophils % (Manual) Band Neutrophils % Lymphocytes % (Manual) Monocytes % (Manual) Metamyelocytes % Abs Neuts (Manual) Lymphocytes # (Manual) Monocytes # (Manual) Metamyelocytes # Toxic Granulation Toxic Vacuolation Platelet Estimate Plt Morphology Comment RBC Morphology Polychromasia Hypochromasia Microcytosis Macrocytosis O2 Saturation ABG pH at Pt Temp ABG pCO2 at Pt Temp ABG pO2 at Pt Temp ABG HCO3 ABG Base Excess (Actual) VBG pH VBG pCO2 VBG pO2 VBG HCO3 VBG O2 Saturation VBG Base Excess Sodium Potassium Chloride Carbon Dioxide Anion Gap BUN Creatinine Estim Creat Clear Calc Estimated GFR POC Glucose Random Glucose Lactic Acid 14.0 H* Lactic Acid F/U @ 2Hr Calcium Total Bilirubin AST ALT Alkaline Phosphatase Troponin I High Sens 25.6 H D B-Natriuretic Peptide 594 H Total Protein Albumin Urine Color Urine Appearance Urine pH Ur Specific [place] Urine Protein Urine Glucose (UA) Urine Ketones Urine Blood Urine Nitrite Ur Leukocyte Esterase Urine RBC Urine WBC Ur Squamous Epith Cells Amorphous Sediment Urine Bacteria Hyaline Casts Urine Mucus 05/15/22 05/15/22 05/15/22 04:18 04:22 04:28 WBC RBC Hgb Hct MCV MCH MCHC RDW Plt Count MPV Immature Gran % (Auto) Neut % (Auto) Lymph % (Auto) [place] % (Auto) Eos % (Auto) Baso % (Auto) Lymph # (Auto) [place] # (Auto) Eos # (Auto) Baso # (Auto) Abs Immat Gran (auto) Absolute Neuts (auto) Absolute Nucleated RBC Nucleated RBC % (auto) Neutrophils % (Manual) Band Neutrophils % Lymphocytes % (Manual) Monocytes % (Manual) Metamyelocytes % Abs Neuts (Manual) Lymphocytes # (Manual) Monocytes # (Manual) Metamyelocytes # Toxic Granulation Toxic Vacuolation Platelet Estimate Plt Morphology Comment RBC Morphology Polychromasia Hypochromasia Microcytosis Macrocytosis O2 Saturation ABG pH at Pt Temp ABG pCO2 at Pt Temp ABG pO2 at Pt Temp ABG HCO3 ABG Base Excess (Actual) VBG pH 7.27 L VBG pCO2 26 VBG pO2 63 VBG HCO3 12 L VBG O2 Saturation 82.0 VBG Base Excess -12.8 Sodium Potassium Chloride Carbon Dioxide Anion Gap BUN Creatinine Estim Creat Clear Calc Estimated GFR POC Glucose Random Glucose Lactic Acid Lactic Acid F/U @ 2Hr 14.0 H* Calcium Total Bilirubin AST ALT Alkaline Phosphatase Troponin I High Sens B-Natriuretic Peptide Total Protein Albumin Urine Color BROWN A Urine Appearance HAZY Urine pH 6.5 Ur Specific [place] 1.020 Urine Protein 1+ H Urine Glucose (UA) NEG Urine Ketones 5 Urine Blood NEG Urine Nitrite POS H Ur Leukocyte Esterase TRACE H Urine RBC 1-4 Urine WBC 1-4 Ur Squamous Epith Cells 2+ Amorphous Sediment 1+ Urine Bacteria 1+ Hyaline Casts 10-14 Urine Mucus 2+ 05/15/22 05/15/22 09:49 11:32 WBC RBC Hgb Hct MCV MCH MCHC RDW Plt Count MPV Immature Gran % (Auto) Neut % (Auto) Lymph % (Auto) [place] % (Auto) Eos % (Auto) Baso % (Auto) Lymph # (Auto) [place] # (Auto) Eos # (Auto) Baso # (Auto) Abs Immat Gran (auto) Absolute Neuts (auto) Absolute Nucleated RBC Nucleated RBC % (auto) Neutrophils % (Manual) Band Neutrophils % Lymphocytes % (Manual) Monocytes % (Manual) Metamyelocytes % Abs Neuts (Manual) Lymphocytes # (Manual) Monocytes # (Manual) Metamyelocytes # Toxic Granulation Toxic Vacuolation Platelet Estimate Plt Morphology Comment RBC Morphology Polychromasia Hypochromasia Microcytosis Macrocytosis O2 Saturation 63.0 97.0 ABG pH at Pt Temp 7.00 L* 7.14 L* ABG pCO2 at Pt Temp 38 19 L* ABG pO2 at Pt Temp 55 L 121 H ABG HCO3 10 L 7 L ABG Base Excess (Actual) -20.2 -20.0 VBG pH VBG pCO2 VBG pO2 VBG HCO3 VBG O2 Saturation VBG Base Excess Sodium Potassium Chloride Carbon Dioxide Anion Gap BUN Creatinine Estim Creat Clear Calc Estimated GFR POC Glucose Random Glucose Lactic Acid Lactic Acid F/U @ 2Hr Calcium Total Bilirubin AST ALT Alkaline Phosphatase Troponin I High Sens B-Natriuretic Peptide Total Protein Albumin Urine Color Urine Appearance Urine pH Ur Specific [place] Urine Protein Urine Glucose (UA) Urine Ketones Urine Blood Urine Nitrite Ur Leukocyte Esterase Urine RBC Urine WBC Ur Squamous Epith Cells Amorphous Sediment Urine Bacteria Hyaline Casts Urine Mucus Microbiology Microbiology Results: Microbiology 05/08/22 18:33 Blood - Venous Blood Culture - Final No growth after 5 days. 05/08/22 18:33 Blood - Venous Blood Culture - Final No growth after 5 days. 05/09/22 02:30 Stool Stool Culture - Final Progress Note: A&P Assessment and plan (1) Ischemic necrosis of large intestine: Status: Acute (2) Anemia: Status: Acute (3) BRBPR (bright red blood per rectum): Status: Acute (4) Colitis: Status: Acute (5) Sepsis: Status: Acute (6) Lactic acidosis: Status: Acute (7) Hypokalemia: Status: Acute (8) Edema: Status: Acute (9) Hypernatremia: Status: Acute (10) Perforated bowel: Status: Acute (11) Septic shock: Status: Acute (12) CIARA (acute kidney injury): Status: Acute (13) Diverticulitis: Status: Acute Plan the patient clearly in is passing and intolerant of the dialysis treatment with intractable lactic acidosis in profound septic shock multiorgan system failure and dialysis any further is is an exercise in futility a blood pressures down into the into the 60s so were going to stop the dialysis give her back her volume and just except for what is right now and will get a measure in intra- abdominal pressure and because of if clearly she has a compartment and I have to call back to surgeon for fasciotomy of but short of that just simply stopping dialysis for now Quality Stroke Does the patient have a stroke diagnosis?: No VTE Prior VTE?: No VTE Risk Level:: Medical - moderate - high VTE Device Contraindication: N/A - Device Ordered VTE Drug Contraindication: Treatment Not Indicated
[2022-05-15 13:16] LABS: Hematocrit 25.8 % (37.0-47.0); Hemoglobin 7.5 g/dl (12.0-16.0); Mean Corpuscular HGB Conc 29.1 g/dl (31.0-35.0); Mean Corpuscular Hemoglobin 26.4 pg (27.0-33.0); Mean Corpuscular Volume 90.8 fL (80.0-98.0); Mean Platelet Volume 9.9 fL (9.4-12.3); NRBC Pct Auto 0.5 /100WBC (0.0-0.2); Platelet Count 168 X10*3/uL (160-400); Red Blood Count 2.84 X10*6/uL (4.20-5.50); Red Cell Distribution Width 29.2 % (11.0-16.0)
[2022-05-15 13:22] LABS: White Blood Count 42.5 X10*3/uL (4.8-10.8)
[2022-05-15 13:36] LABS: Alanine Aminotransferase 68 U/L (0-31); Albumin Level 1.4 g/dL (3.5-5.0); Alkaline Phosphatase 186 U/L (39-117); Aspartate Amino Transferase 498 U/L (5-31); Bilirubin Direct 0.9 mg/dL (0.0-0.5); Bilirubin Total 1.1 mg/dL (0.0-1.0); C Reactive Protein 8.62 mg/dL (< or = 0.50); Total Protein 2.9 g/dL (6.5-8.0)
[2022-05-15 13:50] LABS: Lactic Acid 18.3 mmol/L (0.5-2.0)
[2022-05-15 13:51] LABS: Anion Gap 27 (12-20); Blood Urea Nitrogen 18 mg/dL (9-16); Calcium 6.6 mg/dL (8.4-10.2); Carbon Dioxide 8 mmol/L (22-29); Chloride 103 mmol/L (96-108); Creatinine Clr Calc Pharmacy 34.8; Estimated Glomerular Filt Rate 40; Glucose Random 13 mg/dL (60-115); Potassium 5.2 mmol/L (3.3-5.1); Sodium 133 mmol/L (135-145)
--- NOTE | 2022-05-15 13:55 | P.CDIC_ITS ---
CDI Concurrent Query Documentation Clarification: PHYSICIAN'S DOCUMENTATION REQUEST Date of Query: 05/15/22 0102 Patient Name: Jessica Lara Admit Date: 05/08/22 Dear Doctor, A review of the medical record indicates additional documentation may be needed. Please review below and update the documentation accordingly. Risk Factors/Clinical Indicators/Treatments Per Operative Report 05/15/22: A large amount of fecal in smelling serous fluid was evacuated occluding many interloop collections, collections above the liver, in the left and right gutters and pelvis.? Examination revealed thickening of the sigmoid colon with ischemic appearing left colon, splenic flexure and transverse colon proximal to the splenic flexure.? A small perforation was identified in the distal left colon.? Findings were suggestive of perforation due to either colitis or diverticulitis. Per MD progress note 05/15/22: procedure included extensive washout of the peritoneal cavity Based on the above, could you clarify in the Progress Notes the appropriate diagnosis, if significant, that supports the above abnormalities and additional evaluation, monitoring, and/or treatment rendered: * Based on the above, could you provide an associated diagnosis associated with the evaluation, monitoring and treatment of the patient * Other (please specify) * Unable to determine Use of terms such as suspected, likely, concern for, or probable (associated with a specific diagnosis that is being evaluated, monitored, or treated as if it exists) are acceptable and can be coded in the inpatient setting, when documented at the time of discharge. Thank you, Cinthya Khan RN Extension: [phone] Please use your independent medical judgment in providing your response. THIS QUERY IS PART OF THE PERMANENT MEDICAL RECORD Provider Response: Other Other Diagnosis: Perforated sigmoid colon due to colitis of unknown etiology. Suspect either ischemic, ulcerative, or infectious colitis.
[2022-05-15 15:08] LABS: Reflex Lactate? Lactic Acid Added
[2022-05-15 15:57] LABS: ~Lactic Acid-LAB USE ONLY 15.9 mmol/L (0.5-2.0)
--- NOTE | 2022-05-15 16:08 | W.PM.IDCN ---
History of Present Illness Data of Consult Service Date: 05/15/22 Requesting physician: Kavita Vernon Primary Care Provider: Jesse Sommer MD HPI Reason for consult: perforated viscus She presents with left abdominal pain ,7/10 to back. There was bloody stool as well. She has unknown reaction to Penicillin. She had shock and went to OR. She has lactate level of 14. She received Merem and dose of Gentamicin. Review of Systems Review of Systems: Yes all other systems are reviewed and are negative PMFSH Past Medical History Medical History Hypertension Functional capacity: independent ambulation Family History Family history: reviewed and not pertinent Social History Social History Household Members: Spouse Housing: House Do you presently have visiting nurse or other home services: No Alcohol intake: never Patient Tobacco Use Status: Former Tobacco user Second Hand Smoke Exposure: No service: No Current occupational status: retired Current occupational exposures/hazards: No Meds Allergies Allergy/AdvReac Type Severity Reaction Status Date / Time Fish Containing Products Allergy Unknown HIVES TO Verified 04/21/22 14:16 COD Penicillins [PENICILLINS] Allergy Unknown UNKNOWN Verified 04/21/22 14:16 Sulfa (Sulfonamide Allergy Unknown HIVES Verified 04/21/22 14:16 Antibiotics) [SULFA (SULFONAMIDE ANTIBIOTICS)] sulfamethoxazole Allergy Unknown HIVES Verified 04/21/22 14:16 [From BACTRIM] trimethoprim [From BACTRIM] Allergy Unknown HIVES Verified 04/21/22 14:16 Active Medications: Current Medications Acetaminophen (Acetaminophen 325 Mg Tablet) 650 mg PO Q6H PRN PRN Reason: Pain, Mild (Pain Scale 1-3) Last Admin: 05/12/22 21:27 Dose: 650 mg Chlorhexidine Gluconate (Chlorhexidine Gluc Oral Rinse 15 Ml Mouthwash) 15 ml BUCCAL TID [facility] Last Admin: 05/15/22 15:04 Dose: 15 ml Metronidazole (Flagyl) 500 mg in 100 mls @ 100 mls/hr IV Q8H [facility] Last Infusion: 05/15/22 12:09 Dose: Infused Norepinephrine Bitartrate (Levophed) 8 mg in 250 mls @ 0 mls/hr IVCONT .Q0M [facility]; Protocol Last Admin: 05/15/22 15:07 Dose: 1.5 mcg/kg/min, 222.47 mls/hr Propofol (Diprivan) 1,000 mg in 100 mls @ 0 mls/hr IVCONT .Q0M [facility]; Protocol Last Admin: 05/15/22 08:52 Dose: 20 mcg/kg/min, 9.49 mls/hr Lactated Ringer's (Lr) 1,000 mls @ 150 mls/hr IVCONT .Q6H40M [facility] Last Infusion: 05/15/22 15:14 Dose: 150 mls/hr Vasopressin 20 unit/ Sodium (Chloride) 101 mls @ 12.12 mls/hr IVCONT .Q8H20M [facility] Last Infusion: 05/15/22 13:35 Dose: 0.06 unit/min, 18.18 mls/hr Multivitamins/Vitamin C (Multivitamin Tablet) 1 tab PO DAILY [facility] Last Admin: 05/15/22 11:08 Dose: 1 tab Pantoprazole Sodium (Pantoprazole Sodium 40 Mg/10 Ml Vial) 40 mg IVPUSH DAILY@0630 [facility] Last Admin: 05/15/22 05:06 Dose: 40 mg Sodium Chloride (0.9 % Sodium Chloride Flush 3 Ml Syringe) 3 ml IVFLUSH [facility] Last Admin: 05/15/22 15:10 Dose: Not Given Sodium Chloride (0.9 % Sodium Chloride Flush 3 Ml Syringe) [facility] Last Admin: 05/15/22 15:10 Dose: 3 ml Home Medications Medication Instructions Recorded Confirmed Last Taken Type lorazepam 1 mg tablet 1 tab PO BEDTIME PRN Anxiety 04/21/22 05/08/22 Unknown History multivitamin 1 tab PO DAILY 05/08/22 05/08/22 Unknown History omeprazole 20 mg capsule,delayed 20 mg PO DAILY 05/08/22 05/08/22 Unknown History release Physical Exam Vital Signs: Vital Signs: Last Vital Signs Temp 97.0 F 05/15/22 12:00 Pulse 115 H 05/15/22 15:00 Resp 24 H 05/15/22 15:00 BP 112/60 05/15/22 15:00 Pulse Ox 100 05/15/22 15:00 O2 Del Method 05/15/22 15:00 O2 Flow Rate 2 05/15/22 01:15 FiO2 50 05/15/22 15:43 Oxygen Flow Rate 15 05/15/22 01:15 BMI result Body Mass Index 32.9 Const: General: cooperative HEENT: Head: Yes normal to inspection Mouth: Normal oral and palatal mucosa present Eyes: General: appearance normal, both eyes and all related structures Pupils: Equal, round and reactive pupils present Resp: Effort & Inspection: normal respiratory effort Cardio: Rate: regular rate Rhythm: regular rhythm GI: Palpation (GI): Firmness to palpation present (GI) and nontender Skin: General skin exam: no rashes or lesions noted Neuro: Cranial nerves: Yes Equal, round and reactive pupils present Results Labs CBC & Chem 7: 05/15/22 13:04 05/15/22 13:04 Labs: Short CBC 05/15/22 05/15/22 Range/Units 02:11 13:04 WBC 34.6 H* 42.5 H* (4.8-10.8) X10*3/uL Hgb 11.4 L D 7.5 L D (12.0-16.0) g/dl Hct 37.9 D 25.8 L D (37.0-47.0) % Plt Count 308 D 168 D (160-400) X10*3/uL BMP 05/15/22 05/15/22 05/15/22 02:11 13:04 13:04 Sodium 129 L Cancelled 133 L Potassium 4.6 Cancelled 5.2 H Chloride 97 Cancelled 103 Carbon Dioxide 11 L Cancelled 8 L* D BUN 19 H Cancelled 18 H Creatinine 1.41 H Cancelled 1.29 Calcium 7.5 L Cancelled 6.6 L D Liver Function 05/15/22 05/15/22 Range/Units 02:11 13:04 Total Bilirubin 0.6 1.1 H (0.0-1.0) mg/dL Direct Bilirubin 0.9 H (0.0-0.5) mg/dL AST 65 H 498 H (5-31) U/L ALT 23 68 H (0-31) U/L Alkaline Phosphatase 287 H D 186 H D (39-117) U/L Albumin 1.6 L D 1.4 L (3.5-5.0) g/dL Urine 05/15/22 Range/Units 04:18 Urine Color BROWN A Urine Appearance HAZY Urine pH 6.5 (5.0-8.0) Ur Specific [place] 1.020 (1.005-1.025) Urine Protein 1+ H (NEG-TRACE) MG/DL Urine Glucose (UA) NEG (NEG) MG/DL Microbiology Microbiology Results: Microbiology 05/08/22 18:33 Blood - Venous Blood Culture - Final No growth after 5 days. 05/08/22 18:33 Blood - Venous Blood Culture - Final No growth after 5 days. 05/09/22 02:30 Stool Stool Culture - Final Procedures Arterial Line Size (Gauge): 18 Assessment and Plan (1) Diverticulitis: Status: Acute (2) CIARA (acute kidney injury): Status: Acute (3) Septic shock: Status: Acute She has perforated bowel and probable gut marjan,gram negative and anerobes She has had surgery this morning. (4) Perforated bowel: Status: Acute Plan Would give merem and flagyl cover above. Prognosis guarded.
[2022-05-15] MEDS: Phenylephrine HCL 20 MG in 0.9 % Sodium Chloride 250 ML 59.8 MG IVCONT (16:28)
--- NOTE | 2022-05-15 16:49 | CONS_ITS ---
DATE OF SERVICE: 05/15/2022 REASON FOR CONSULTATION: I was called to see this patient to assist in management of acute kidney injury. HISTORY OF PRESENT ILLNESS: To summarize, Jessica is a 77-year-old woman with history of hypertension, congestive heart failure, and history of colitis, who was admitted for abdominal pain. Subsequently, she was found to have ischemic bowel. She underwent emergency surgery. She has been hypotensive and at present she is in ICU requiring pressors and she has been oliguric. Her baseline creatinine 0.8 mg/dL. As of today, creatinine is 1.4 and hence this consultation. Family was at bedside. I have discussed with the ICU attending. ONGOING MEDICAL PROBLEMS: Include hypertension, anxiety, colitis, normal renal function, chronic hyponatremia. ALLERGIES: SHE IS ALLERGIC TO PENICILLIN, SULFA. HOME MEDICATIONS: Include hydromorphone, amlodipine, clindamycin solution, losartan 50 mg, Zofran, nystatin. REVIEW OF SYSTEMS: Not obtainable since she was intubated. PHYSICAL EXAMINATION: GENERAL: Jessica is a 77-year-old woman. She is intubated and sedated. Appears ill. NECK: Supple. LUNGS: Bilateral scattered rhonchi. HEART: S1, S2 heard. No gallop. ABDOMEN: Status post surgery. NEURO: She is sedated. No involuntary movements. EXTREMITIES: No dependent edema. No rash. No clubbing. VITAL SIGNS: Blood pressure today was 80/60 with pressors. Pulse is 100 per minute. LABORATORY DATA: Sodium 129, potassium 4.6, CO2 11, BUN 19, creatinine 1.41. Lactic acid level of 14. PH 7.14, pCO2 of 17, bicarb of 7. WBC 34.6, hemoglobin 11.4, platelets 208. Urine studies showed brown dark urine. She had 1.020, 1+ protein by dipstick. No blood. CT abdomen done on the did not reveal any obstruction of the renal system. IMPRESSION: A 77-year-old woman with acute kidney injury, most likely due to ischemic ATN. Acute kidney injury with severe acidosis and she is currently oliguric. I agree with proceeding with hemodialysis to correct these abnormalities, especially due to severe acidosis. Optimize blood pressure. Agree with pressure support. We will not remove any fluid with dialysis unless needed. We will try to run her even and correct the acidosis. We will continue to watch the potassium, which would increase if she remains oliguric. Overall prognosis is guarded. We will follow along with the team. Nitish Cisneros MD BPA/MODL / [id number]
[2022-05-15] MEDS: Phenylephrine HCL 20 MG in 0.9 % Sodium Chloride 250 ML 358.8 MG IVCONT (17:18)
[2022-05-15 17:30] LABS: Reflex Lactate? 2 Y
--- NOTE | 2022-05-15 17:38 | PC.NURSE ---
Assumed care at 1500 Temporary dialysis catheter placed by [employer] Custodian - CXR confirmed 1500 core temp 93.2 - bear hugger placed CVP tending 9-10 - LR decreased to 150cc/hr per MD Prior to dialysis patient on Propofol gtt @ 10mcg, Levo gtt @ 1.5mcg, and Vaso gtt @ 0.06u Dialysis started at 1521 BP down to as low as 67/36 - Phenylephrine gtt started and maxed out Unable to tolerate dialysis d/t continuous low BP's - Dialysis stopped at 1638 per Intensvist Abd pressure reading obtained and 8 - MD notified Family at bedside and updated by MD Current vitals: HR 111, RR 26, BP 104/52, O2 100% on 60% Fio2 Patient status changed to DNR
[2022-05-15] MEDS: Phenylephrine HCL 20 MG in 0.9 % Sodium Chloride 250 ML 239.2 MG IVCONT (18:04)
[2022-05-15 18:24] LABS: ~Lactic Acid-LAB USE ONLY 13.4 mmol/L (0.5-2.0)
[2022-05-15 18:40] LABS: ABG Base Excess -16.6 mmol/L; ABG HCO3 8 mmol/L (22-26); ABG pCO2 15 mmHg (32-45); ABG pH 7.29 (7.35-7.45); ABG pO2 112 mmHg (83-108)
--- NOTE | 2022-05-15 18:41 | PC.NURSE ---
Patients PEEP at [address] Cedillo d/t low BP's - BP stable now and Peep to remain at [address] Cedillo
[2022-05-15 18:49] LABS: Mean Corpuscular HGB Conc 29.6 g/dl (31.0-35.0); Mean Corpuscular Hemoglobin 26.2 pg (27.0-33.0); Mean Corpuscular Volume 88.6 fL (80.0-98.0); Mean Platelet Volume 9.5 fL (9.4-12.3); Red Blood Count 2.29 X10*6/uL (4.20-5.50); Red Cell Distribution Width 29.2 % (11.0-16.0)
[2022-05-15 18:51] LABS: NRBC Pct Auto 1.5 /100WBC (0.0-0.2); Platelet Count 59 X10*3/uL (160-400); WBC ABN SCTR FOR CBC 1
[2022-05-15 18:54] LABS: White Blood Count 31.3 X10*3/uL (4.8-10.8)
[2022-05-15 18:55] LABS: Hematocrit 20.3 % (37.0-47.0)
[2022-05-15] MEDS: Phenylephrine HCL 20 MG in 0.9 % Sodium Chloride 250 ML 179.4 MG IVCONT (19:18)
[2022-05-15 19:23] LABS: Acanthocytes 3+ (>5) /OIF; Band Neutrophils Percent 6 % (3-5); Blast Percent 1 %; Blastocytes Absolute 0.3 X10*3/uL; Giant Platelet PRESENT; Lymphocytes Absolute Manual 0.9 X10*3/uL (1.2-4.9); Lymphocytes Percent Manual 3 % (20-40); Macrocytosis 1+ (5-14) /OIF; Metamyelocytes Absolute 0.9 X10*3/uL; Metamyelocytes Percent 3 %; Microcytosis 3+ (>30) /OIF; Myelocytes Absolute 0.3 X10*/uL; Myelocytes Percent 1 %; Neutrophils Absolute Manual 28.8 X10*3/uL (2.0-8.3); Neutrophils Percent Manual 86 % (45-73); Nucleated Red Blood Cells 6 /100WBC (0-0); Platelet Estimate DECREASED (NORMAL); Platelet Morphology Comment AGRANULAR; RBC Morphology NOTED
[2022-05-15 19:24] LABS: Burr Cells 3+ (>5) /OIF; Polychromasia 1+ (0-2) /OIF; Smudge Cells PRESENT; Spherocytes 2+ (3-5) /OIF; Target Cells 1+ (5-14) /OIF; Tear Drop Cells 2+ (3-5) /OIF; Toxic Granulation PRESENT; Toxic Vacuolation PRESENT
[2022-05-15 19:34] LABS: Alanine Aminotransferase 437 U/L (0-31); Albumin Level 1.1 g/dL (3.5-5.0); Alkaline Phosphatase 158 U/L (39-117); Anion Gap 25 (12-20); Aspartate Amino Transferase 4096 U/L (5-31); Bilirubin Total 1.2 mg/dL (0.0-1.0); Blood Urea Nitrogen 15 mg/dL (9-16); Carbon Dioxide 9 mmol/L (22-29); Chloride 107 mmol/L (96-108); Creatinine Clr Calc Pharmacy 42.2; Estimated Glomerular Filt Rate 50; Glucose Random 8 mg/dL (60-115); Potassium 5.2 mmol/L (3.3-5.1); Sodium 136 mmol/L (135-145); Total Protein 2.3 g/dL (6.5-8.0)
[2022-05-15] MEDS: Calcium Gluconate/NaCl,Iso-Osm 2 GM/100 ML PLAST..BAG IV (19:54)
[2022-05-15 20:05] LABS: TS Negative Control Passed; TS Panel A 0; TS Panel B 0; TS Positive Control Passed; TSpotTB Negative (Negative)
[2022-05-15 20:06] LABS: Glucose, Whole Blood 141 mg/dL (60-115)
[2022-05-15 20:31] LABS: ABG Refer to POC result
[2022-05-15 20:32] LABS: ABG Refer to POC result
[2022-05-15] MEDS: Sodium Bicarbonate 8.4% 150 MEQ in Dextrose 5 % 850 ML 100 MEQ IV (20:36)
[2022-05-15] MEDS: Phenylephrine HCL 100 MG in 0.9 % Sodium Chloride 250 ML 12.34 MG IVCONT (20:38)
[2022-05-16] VITALS: BP 122/65; BP 122/66; PULSE 115; PULSE 116; RESP 10; RESP 30; TEMP 36.2
[2022-05-16 00:13] LABS: Hematocrit 35.8 % (37.0-47.0); Mean Corpuscular HGB Conc 30.7 g/dl (31.0-35.0); Mean Corpuscular Hemoglobin 30.1 pg (27.0-33.0); Mean Corpuscular Volume 98.1 fL (80.0-98.0); Mean Platelet Volume 9.9 fL (9.4-12.3); Red Blood Count 3.65 X10*6/uL (4.20-5.50); Red Cell Distribution Width 23.8 % (11.0-16.0)
[2022-05-16 00:16] LABS: NRBC Pct Auto 2.2 /100WBC (0.0-0.2); Platelet Count 47 X10*3/uL (160-400); White Blood Count 41.6 X10*3/uL (4.8-10.8)
[2022-05-16 00:19] VITALS: BP 110/60; PULSE 114; TEMP 35
[2022-05-16 00:46] LABS: Anion Gap 29 (12-20); Blood Urea Nitrogen 11 mg/dL (9-16); Carbon Dioxide 6 mmol/L (22-29); Chloride 107 mmol/L (96-108); Creatinine Clr Calc Pharmacy 34.2; Estimated Glomerular Filt Rate 39; Glucose Random 91 mg/dL (60-115); Sodium 136 mmol/L (135-145)
[2022-05-16] MEDS: Sodium Bicarbonate 8.4% 50 MEQ/50 ML SYRINGE IVPUSH ×2 (00:53→03:11)
[2022-05-16] MEDS: Phenylephrine HCL 100 MG in 0.9 % Sodium Chloride 250 ML 12.34 MG IVCONT (00:55)
[2022-05-16] MEDS: Albumin Human 25 % 100 ML IV ×2 (00:59→01:32)
[2022-05-16 01:00] VITALS: BP 121/63; BP 122/64; PULSE 111; PULSE 112; RESP 33; RESP 34; TEMP 36.3
[2022-05-16 02:00] VITALS: BP 138/69; PULSE 106; RESP 30; TEMP 36.2
[2022-05-16 03:00] VITALS: BP 124/63; PULSE 100; RESP 12; TEMP 35.8
[2022-05-16 04:00] VITALS: BP 48/28; PULSE 44; TEMP 35.9
--- NOTE | 2022-05-16 04:18 | PM.EVENT ---
Event Note Date of Service: 05/16/22 Event Note: Overnight patient was maxed out on pressors. transfused with 2 u of pRBC for hgb of 6, 2g Ca gluconate, 200ml of albumin and multiple bicarb pushes as well as bicarb drip. ?Patient drop pulse and blood pressure. No activity on pay station department manager as well as US. On my assesment, no spontaneous breathing,? no palpable pulses, absent heart sounds, no corneal or gag reflex. ? Official time of 0410 a.m. Family was called, spoke to who will like to come see patient.? Autopsy declined. Does not qualify for ME case. Nursing will inform organ donation. Attending Dr Vernon aware ?
--- NOTE | 2022-05-16 04:34 | P.DN_ITS ---
Discharge Sum: Prov Provider Primary care physician: Jesse Sommer MD Admitting clinician: Kavita Vernon Attending physician on admission: Juan Egan Consults: 05/08/22 22:14 Consult to Gastroenterology Routine Consulting Provider: Harshad Kwon Reason for consultation: colitis; guaiac positive stool 05/09/22 08:47 Consult to General Surgery Routine Consulting Provider: Norris Lyman Reason for consultation: non healing presumed ischemic colitis 05/09/22 12:42 Consult to General Surgery Routine Consulting Provider: Norris Lyman Reason for consultation: Persistant colitis..?ischemic Has provider been notified: No 05/15/22 10:09 Consult to Infectious Diseases Stat Consulting Provider: Renetta Whitley Reason for consultation: restricted antibiotic Has provider been notified: Yes 05/15/22 11:45 Consult to Nephrology Stat Consulting Provider: Nitish Cisneros Reason for consultation: ATN/sepsis/lactic acidosis Pronouncing clinician: Dre Britt Discharge Sum: Diag Contributing Factors (1) Perforated bowel: (2) Ischemic necrosis of large intestine: (3) Septic shock: (4) Anemia: (5) BRBPR (bright red blood per rectum): (6) Colitis: (7) Sepsis: (8) Lactic acidosis: (9) Hypokalemia: (10) Edema: (11) Hypernatremia: (12) CIARA (acute kidney injury): (13) Diverticulitis: Discharge Sum: Summary Date and Time Date of admission: 05/08/22 22:14 Date of : 05/16/22 Time of : 04:10 Summary Details: 77-year-old female with a past medical history of hypertension, Congestive heart failure, anxiety who? presented to the? emergency department on 05/08/22 with a chief complaint of abdominal pain.? She was admitted to Hospital Medicine,? with ulcerative colitis versus? ischemic colitis complicated by superinfection. She is s/p sigmoidoscopy and biopsy on 05/11/[address] Kwon, which showed chronic, severely active, colitis; no dysplasia or granulomata identified and placed on steroids. On 05/14/22 patient WBC increased to 30, General surgery Dr Javier assessed the patient and reviewed the CT scan. He stated, CT seems more consistent with diverticulitis with micro perforation and advised to Dc steroids and? continue antibiotics. ? Patient? also stated she was not interested in pu rsuing surgery.? O05/15/22? rapid response team,? due to patient developing,? kortney distress she was found hypoxic to 75%, respiratory rate in the 40s and drop blood pressures to systolic of 70s.? She was taking emergently to the? the ICU for intubation.? On x-ray she was? noted to have free air her abdomen as previously? mentioned.? WBC increased and lactic acid elevated to 14. She was taken? emergently to operating room by Dr. Lyman for Exploratory laparotomy, extended left colectomy and? transverse colostomy.? Post OR,? Renal failure? worsened,? require emergent dialysis? and dialysis cath eter placement? but she was unable to tolerate? due to severe hypotension. Patient required max support? on 3 pressors and multiple pushes of? sodium bicarb. Dr Vernon, ? Did goals of care? with family,? and decided patient to become DNR.? ?Overnight,? the patient continued to require max support with pressors,? required blood transfusion, albumin, calcium gluconate,? bicarb drip and multiple? pushes of bicarb.? Despite all this patient became bradycardic and hypotensive? and later became pulseless. ( see event note)? ?Family was called? and aware of patient passing Additional Data Confirmation of as documented by pronouncing clinician: no pulse, no respirations, no heart sounds and pupils fixed and dilated Family: contacted ( Candido ) Attending/PCP notified?: No Attending physician: Kavita Vernon MD Was code activated?: No Autopsy requested?: No mail distribution scheme examiner notified?: No Organ bank notified?: Yes Advance directives: Yes Hospice patient?: No
--- NOTE | 2022-05-16 04:44 | PC.NURSE ---
Upon initial assessment at 1999- pt unresponsive, RASS -5. Temp 95, placed on emir hugger. Sinus tach on tele, HR 120s. BP via twin with appropriate waveform. Levophed, phenylephrine, and vasopressin gtt titrated per mar to maintain MAP > 60 per ATHLETICS TEACHER. Provider aware of cirital labs- given 2 units of pRBCs, calcium gluconate 2g IV, 1 amp of 50, multiple amps of bicarb IVP, bicarb gtt, and IV albumin. Total UOP 50 ml. At approx 0400, BP and HR dropped depsite maximum dose of pressors. Asystole on monitor at 0410. Family called. NEOB called, declined, see documentation. Post mortem care to be done.
--- NOTE | 2022-05-16 08:43 | PC.NURSE ---
FAMILY LEFT AND TOOK ALL OF PATIENT BELONGINGS. POST MORTEM CARE COMPLETED. [place] [facility] [place] CERTIFICATE AND PAPERWORK BROUGHT TO SWITCHBOARD BY CMT.
[2022-05-18 04:28] LABS: HBS Num1 0.33 mIU/mL (0-7.99); HBc Num1 0.62 S/CO (0.00-0.79); HBsAGNum1 0.33 S/CO (0.00-0.99); Hepatitis B Core Antibody Nonreactive (Nonreactive); Hepatitis B Surface Antigen Negative (Negative); ~Hepatitis B Surface Antibody NONREACTIVE (Nonreactive)
== END 2022-05-16 04:10 | disposition expired | DRG 853 ==
LOC: HO.ED 21:54 → HO.EDOVER 22:23 → HO.S3 05-09 00:03 → HO.ICU 05-15 02:54
PROVIDERS: Hospitalist; Internal Medicine; Internal Medicine Gastroenterology; Internal Medicine Hypertension Specialist; Nurse Practitioner Family; Registered Nurse Community Health; Student in an Organized Health Care Education/Training Program; Surgery; Admitting Provider Hospitalist; Emergency Provider Emergency Medicine; PCP Family Medicine; Visit Provider Internal Medicine Cardiovascular Disease
PROC: 0DJD8ZZ Inspection of Lower Intestinal Tract, Via Natural or Artificial Opening Endoscopic (ICD-10-PCS; CPT 45330; principal; 2022-05-11 12:10)
PROC: 0D1L074 Bypass Transverse Colon to Cutaneous with Autologous Tissue Substitute, Open Approach (ICD-10-PCS; CPT 49000; principal; 2022-05-15 05:30)
DX: A41.9 Sepsis, unspecified organism (principal); E43 Unspecified severe protein-calorie malnutrition; R65.21 Severe sepsis with septic shock; J80 Acute respiratory distress syndrome; E87.2 Acidosis; A09 Infectious gastroenteritis and colitis, unspecified; K55.9 Vascular disorder of intestine, unspecified; E87.1 Hypo-osmolality and hyponatremia; N17.9 Acute kidney failure, unspecified; K57.20 Diverticulitis of large intestine with perforation and abscess without bleeding; Z66 Do not resuscitate; F41.9 Anxiety disorder, unspecified; I11.0 Hypertensive heart disease with heart failure; I50.9 Heart failure, unspecified; D50.0 Iron deficiency anemia secondary to blood loss (chronic); Z20.822 Contact with and (suspected) exposure to COVID-19; E87.6 Hypokalemia; Z87.891 Personal history of nicotine dependence; D72.829 Elevated white blood cell count, unspecified; Z91.013 Allergy to seafood; Z68.32 Body mass index [BMI] 32.0-32.9, adult; Z88.0 Allergy status to penicillin; Z88.1 Allergy status to other antibiotic agents; Z88.2 Allergy status to sulfonamides; Z79.899 Other long term (current) drug therapy
CPT/HCPCS: 0241U; 36415; 36600; 71045; 74177; 80048; 80053; 80076; 81001; 82272; 82607; 82746; 82803; 82947; 83540; 83605; 83690; 83735; 83880; 84484; 85007; 85025; 85027; 85610; 85652; 85730; 86038; 86039; 86140; 86481; 86704; 86706; 86709; 86803; 86850; 86900; 86901; 86923; 87040; 87045; 87046; 87086; 87340; 87389; 87493; 88305; 88307; 89055; 90999; 93005; 94002; 94003; 94660; 94799; 96361; 96365; 96367; 96375; 97162; 97530; 99284; 99285; C1758; J0610; J0696; J1100; J1170; J1940; J2150; J2185; J2250; J2270; J2370; J2405; J2920; J3010; J3370; P9016; P9047; Q9967